=== PATIENT | female | born 1980 | race Caucasian/White ===

== ENCOUNTER 2017-01-17 11:05 | Emergency (ER) | payer MEDICAID ==
[~2017-01-17] VITALS: Ht 165.1 cm; Wt 86.2 kg
[~2017-01-17 11:05] MED LIST: ALBUTEROL-200 PUFFS/ IH; AMOXICILLI250 MG/52 PO; AMOXICILLIN500 M2 PO; BACTRIM DS 8001 TA1 PO; DIAZEPAM2 M1 PO; DIFLUCAN100 MG PO; HYCODAN 1.5 MG480 ML PO; HYDROCODONE-APA1 TA2 PO; LORTAB 5/500 501 TAB PO; MEDROL 4MG. DOSE4 MG PO; MOTRIN 400MG.400 MG PO; PERCOCET 5/3251 EACH PO; SYNTHROID 0.0.125 MG PO; TESSALON PERLE200 MG PO; VIBRAMYCIN 100100 MG PO
--- NOTE | 2017-01-17 11:57 | Urgent Treatment Center Report ---
History of Present Issue Visit Reason Pt arrived:Walked Presenting Problem:PT C/O CHEST CONGESTION, COUGH, AND NAUSEA Location if Accident: Onset of symptoms date/time:/ or onset unknown for:MEDICAL HX UNKNOWN Have you (or family members/close friends) recently traveled outside the [place]? N If Yes, where/when: Have you had exposure to infectious disease within the past month? TB? Other? Specify: Patient states that she has not felt well in several days states that she has had cough, congestion and nausea that has not improved over the last couple of days. States that nothing she has done makes it better or worse. States that she has been coughing alot and it is not letting her sleep ALLERGIES Coded Allergies: azithromycin (Mild, 01/17/17) cephalexin (Mild, 11/11/16) Home Medications Active Scripts Oxycodone 5MG/[id number] (Oxycodone-Acetaminophen 5-325) 1-2 TAB PO Q4HP PRN MODERATE TO SEVERE PAIN #30 TAB Prov: 01/14/15 Amoxicillin Trihydrate (Amoxicillin Oral Susp) 250 MG PO TID #220 ML Prov: 05/31/16 Reported Medications Levothyroxine Sodium (Synthroid 0.125MG) 0.125 MG PO DAILY Diazepam 2 MG PO TID History Medical History General CAD? No Angina: No CT: No Hypertension? No Hyperlipidemia? No CHF? No DVT? No PE? No COPD? No Asthma? No Anemia? No GERD? No Gastric ulcers? No GI Bleed? No Hernia? No Thyroid Problems? No Hypothyroidism? No CVA? No Seizures? No Diabetes? No Renal Insuffiency? No UTI? No Stones? No BPH? No GB Disease: No Nephritic Syndrome? No Asplenia? No Hepatitis? No Sickle Cell Disease? No Arthritis? No Migraines? No Cataracts? No Glaucoma? No MRSA? No HIV? No TB? No Anxiety? No Depression? No Cancer? No More? No Immunization HX DT/Tetanus 5-10 YRS Flu Refused Pneumonia Refuses Surgical Hx Previous Surgery?Y Tubal Ligation UTERINE ABLATION Family History Family HX Diabetes Yes CAD No Hypertension Yes Hyperlipidemia Yes Cancer Yes TB Yes Social History Smoking Hx Smoker: Current Every Day Smoker Tobacco: Yes Type Cigarettes Alcohol Alcohol: No Review of Systems All Other Systems Reviewed and Negative ENT ear pain, nose discharge, nose congestion, throat pain. Respiratory cough Psychiatric/Neurological headache Physical Exam Vital Signs Vital Signs Date Time Temp Pulse Resp B/P Pulse O2 O2 Flow FiO2 Ox Delivery Rate 01/17 1138 98.2 68 16 137/60 96 General Appearance normal appearance, WD/WN, no apparent distress Respiratory Status Yes: trachea midline, chest symmetrical, non tender chest. No: respiratory distress. 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 No Results/Orders Orders Procedure Date/time Status CHEST(2 VIEWS-NOT PORTABLE) 01/17 1137 Active Departure Departure Disposition DC Home or Self Care(routine) Clinical Impression Primary Impression: Viral upper respiratory illness Condition STABLE Referrals aSnty Castro (Family) Patient Instructions DI for Viral Upper Respiratory Infection -- Adult Additional Instructions Drink plenty of fluids Over the counter Motrin or Tylenol as needed for pain or fever Take medication as prescribed Follow up with family doctor Return if needed Discharge Counseling Counseled pt/family regarding diagnosis, test results, medications/RX, home care, follow up needs Prescriptions Current Visit Scripts D-METHORPHAN HB/P-EPD HCL/BPM (Bromfed Dm Cough Syrup) 10 ML PO Q4HP PRN cough #120 SYR Doxycycline Hyclate (Vibramycin) 100 MG PO BID #10 CAP at 1233
--- NOTE | 2017-01-17 11:57 | Urgent Treatment Center Report ---
History of Present Issue Visit Reason Pt arrived:Walked Presenting Problem:PT C/O CHEST CONGESTION, COUGH, AND NAUSEA Location if Accident: Onset of symptoms date/time:/ or onset unknown for:MEDICAL HX UNKNOWN Have you (or family members/close friends) recently traveled outside the [place]? N If Yes, where/when: Have you had exposure to infectious disease within the past month? TB? Other? Specify: Patient states that she has not felt well in several days states that she has had cough, congestion and nausea that has not improved over the last couple of days. States that nothing she has done makes it better or worse. States that she has been coughing alot and it is not letting her sleep ALLERGIES Coded Allergies: azithromycin (Mild, 01/17/17) cephalexin (Mild, 11/11/16) Home Medications Active Scripts Oxycodone 5MG/[id number] (Oxycodone-Acetaminophen 5-325) 1-2 TAB PO Q4HP PRN MODERATE TO SEVERE PAIN #30 TAB Prov: 01/14/15 Amoxicillin Trihydrate (Amoxicillin Oral Susp) 250 MG PO TID #220 ML Prov: 05/31/16 Reported Medications Levothyroxine Sodium (Synthroid 0.125MG) 0.125 MG PO DAILY Diazepam 2 MG PO TID History Medical History General CAD? No Angina: No [place]: No Hypertension? No Hyperlipidemia? No CHF? No DVT? No PE? No COPD? No Asthma? No Anemia? No GERD? No Gastric ulcers? No GI Bleed? No Hernia? No Thyroid Problems? No Hypothyroidism? No CVA? No Seizures? No Diabetes? No Renal Insuffiency? No UTI? No Stones? No BPH? No GB Disease: No Nephritic Syndrome? No Asplenia? No Hepatitis? No Sickle Cell Disease? No Arthritis? No Migraines? No Cataracts? No Glaucoma? No MRSA? No HIV? No TB? No Anxiety? No Depression? No Cancer? No More? No Immunization HX DT/Tetanus 5-10 YRS Flu Refused Pneumonia Refuses Surgical Hx Previous Surgery?Y Tubal Ligation UTERINE ABLATION Family History Family HX Diabetes Yes CAD No Hypertension Yes Hyperlipidemia Yes Cancer Yes TB Yes Social History Smoking Hx Smoker: Current Every Day Smoker Tobacco: Yes Type Cigarettes Alcohol Alcohol: No Review of Systems All Other Systems Reviewed and Negative ENT ear pain, nose discharge, nose congestion, throat pain. Respiratory cough Psychiatric/Neurological headache Physical Exam Vital Signs Vital Signs Date Time Temp Pulse Resp B/P Pulse O2 O2 Flow FiO2 Ox Delivery Rate 01/17 1138 98.2 68 16 137/60 96 General Appearance normal appearance, WD/WN, no apparent distress Respiratory Status Yes: trachea midline, chest symmetrical, non tender chest. No: respiratory distress. 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 No Results/Orders Orders Procedure Date/time Status CHEST(2 VIEWS-NOT PORTABLE) 01/17 1137 Active Departure Departure Disposition DC Home or Self Care(routine) Clinical Impression Primary Impression: Viral upper respiratory illness Condition STABLE Referrals Santy Castro (Family) Patient Instructions DI for Viral Upper Respiratory Infection -- Adult Additional Instructions Drink plenty of fluids Over the counter Motrin or Tylenol as needed for pain or fever Take medication as prescribed Follow up with family doctor Return if needed Discharge Counseling Counseled pt/family regarding diagnosis, test results, medications/RX, home care, follow up needs Prescriptions Current Visit Scripts D-METHORPHAN HB/P-EPD HCL/BPM (Bromfed Dm Cough Syrup) 10 ML PO Q4HP PRN cough #120 SYR Doxycycline Hyclate (Vibramycin) 100 MG PO BID #10 CAP at 1233
[2017-01-17] MEDS ORDERED: BROMFED DM COU118 ML PO (12:21)
[2017-01-17] MEDS ORDERED: DOXYCYCLINE HY100 M4 PO (12:33)
[2017-01-17 12:44] VITALS: BP 137/60
--- NOTE | 2017-01-17 16:51 | RADIOLOGY REPORT PS360 ---
CHEST(2 VIEWS-NOT PORTABLE) ORDERING PHYSICIAN : SARAH NICOLE APRN PATIENT AGE: 36 years GENDER: Female INDICATION: CHEST CONGESTION . No focal pneumonia evident. TECHNIQUE: PA and lateral chest COMPARISON: 11/02/2013 CXR FINDINGS No significant changes previous chest film again the mild accentuation of markings toward the right base is been seen on previous studies and stable. Left lung remains clear unremarkable. Heart, upper normal in size. Unchanged since 2008. Brook and mediastinal structures unchanged. Chest wall T-spine unchanged. IMPRESSION: Stable chest nothing definitely acute.
== END 2017-01-17 12:45 | disposition home or self-care (01) ==
LOC: UTC 11:05
DX: J06.9 Acute upper respiratory infection, unspecified (principal); Z72.0 Tobacco use

== ENCOUNTER → 2017-02-22 | Outpatient (CLI) | payer MEDICAID ==
[~2017-02-22] MED LIST changes: +BROMFED DM COU118 ML PO; +DOXYCYCLINE HY100 M4 PO
[2017-02-22 13:11] LABS: BUN 12 mg/dL (7-18); GFR (ESTIMATED) 70 ML/MIN (59-)
== END ==
LOC: LAB 11:29
PROVIDERS: Internal Medicine Endocrinology, Diabetes & Metabolism
DX: E21.3 Hyperparathyroidism, unspecified (principal)

== ENCOUNTER 2017-08-02 13:38 | Emergency (ER) | payer MEDICAID ==
[~2017-08-02] VITALS: Ht 162.6 cm; Wt 90.7 kg
--- NOTE | 2017-08-02 14:18 | Urgent Treatment Center Report ---
History of Present Issue Date/Time Seen by Provider 08/02/17 1537 Visit Reason Pt arrived:Walked Presenting Problem:PT STATES SHE WAS DIAGNOSED WITH BRONCHITIS LAST TUESDAY. PT STATES SHE FINISHED HER ANTIBIOTICS BUT HER SYMPTOMS HAVE GOTTEN WORSE Location if Accident: Onset of symptoms date/time:/ or onset unknown for:MEDICAL HX UNKNOWN Have you (or family members/close friends) recently traveled outside the [place]? N If Yes, where/when: Have you had exposure to infectious disease within the past month? TB? Other? Specify: Patient state that she was diagnosed about a week ago at the [facility] with bronchitits last week. States that she has finished medication now and her cough seems to have got worse. State that she is having eppisodes of coughing States that she thought she better come back in today and get checked ALLERGIES Coded Allergies: azithromycin (Mild, 01/17/17) cephalexin (Mild, 11/11/16) Home Medications Active Scripts Oxycodone 5MG/[id number] (Oxycodone-Acetaminophen 5-325) 1-2 TAB PO Q4HP PRN MODERATE TO SEVERE PAIN #30 TAB Prov: 01/14/15 D-METHORPHAN HB/P-EPD HCL/BPM (Bromfed Dm Cough Syrup) 10 ML PO Q4HP PRN cough #120 SYR Prov: 01/17/17 Doxycycline Hyclate (Vibramycin) 100 MG PO BID #10 CAP Prov: 01/17/17 Amoxicillin Trihydrate (Amoxicillin Oral Susp) 250 MG PO TID #220 ML Prov: 05/31/16 Reported Medications Levothyroxine Sodium (Synthroid 0.125MG) 0.125 MG PO DAILY Diazepam 2 MG PO TID History Medical History General CAD? No Angina: No [place]: No Hypertension? No Hyperlipidemia? No CHF? No DVT? No PE? No COPD? No Asthma? No Anemia? No GERD? No Gastric ulcers? No GI Bleed? No Hernia? No Thyroid Problems? No Hypothyroidism? No CVA? No Seizures? No Diabetes? No Renal Insuffiency? No UTI? No Stones? No BPH? No GB Disease: No Nephritic Syndrome? No Asplenia? No Hepatitis? No Sickle Cell Disease? No Arthritis? No Migraines? No Cataracts? No Glaucoma? No MRSA? No HIV? No TB? No Anxiety? No Depression? No Cancer? No More? No Immunization HX Ped.Immunizations UTD No DT/Tetanus 5-10 YRS Flu Refused Pneumonia Refuses Surgical Hx Previous Surgery?Y Tubal Ligation UTERINE ABLATION Family History Family HX Diabetes Yes CAD No Hypertension Yes Hyperlipidemia Yes Cancer Yes TB Yes Social History Smoking Hx Smoker: Never Smoker Tobacco: No Alcohol Alcohol: No Review of Systems All Other Systems Reviewed and Negative Respiratory cough, denies shortness of breath, denies wheezing Physical Exam Vital Signs Vital Signs Date Time Temp Pulse Resp B/P Pulse O2 O2 Flow FiO2 Ox Delivery Rate 08/02 1344 98.4 90 20 123/78 98 General Appearance normal appearance, WD/WN, no apparent distress Respiratory Status Yes: trachea midline, chest symmetrical, non tender chest. No: respiratory distress. Lung Sounds bilateral: normal breath sounds. Cardiovascular normal exam, regular rate/rhythm, no peripheral edema Neurologic alert, soda jerker II-XII nml as tested, normal exam, no motor/sensory deficits, oriented x 3 Medical Decision Making LABS/Meds/Orders Pt receiving controlled substance in ED? No Results/Orders Orders Procedure Date/time Status CHEST(2 VIEWS-NOT PORTABLE) 08/02 1408 Active XRAY/CT/US XRAY/CT/US XRAY chest XR interpretation by reviewed by me Xray Results no infiltrates Comment discussed with Dr Sanford Departure Departure Time of Disposition 1428 Disposition DC Home or Self Care(routine) Clinical Impression Primary Impression: Upper respiratory infection Qualifiers: URI type: unspecified URI Qualified Code: J06.9 - Acute upper respiratory infection, unspecified Condition STABLE Patient Instructions Cough Additional Instructions * Monitor Temp. Tylenol and/or Ibuprofen as needed. ER if fever is no less than 101 despite alternating Tylenol and Ibuprofen * Encourage fluids, water, Gatorade, powerade, pedialyte if /toddler/or child * Warm salt water gargles for throat irritation *Warm fluids *Sore throat lozenges *Sleep elevated *humidifier or vaporizer Follow up IMMEDIATELY for new or worsening of symptoms OR no noticeable improvement over the next 48-72 hours. 911 immediately for any life threatening symptoms such as chest pain or difficulty breathing Discharge Counseling Counseled pt/family regarding diagnosis, test results, medications/RX, home care, follow up needs Prescriptions Current Visit Scripts Benzonatate (Tessalon Perle) 100 MG PO TID #15 SGL ALBUTEROL (Proventil Hfa Inhaler) 2 PUFF IH Q6H PRN #1 CAN at 3183
--- NOTE | 2017-08-02 14:18 | Urgent Treatment Center Report ---
History of Present Issue Date/Time Seen by Provider 08/02/17 7117 Visit Reason Pt arrived:Walked Presenting Problem:PT STATES SHE WAS DIAGNOSED WITH BRONCHITIS LAST TUESDAY. PT STATES SHE FINISHED HER ANTIBIOTICS BUT HER SYMPTOMS HAVE GOTTEN WORSE Location if Accident: Onset of symptoms date/time:/ or onset unknown for:MEDICAL HX UNKNOWN Have you (or family members/close friends) recently traveled outside the [place]? N If Yes, where/when: Have you had exposure to infectious disease within the past month? TB? Other? Specify: Patient state that she was diagnosed about a week ago at the [facility] with bronchitits last week. States that she has finished medication now and her cough seems to have got worse. State that she is having eppisodes of coughing States that she thought she better come back in today and get checked ALLERGIES Coded Allergies: azithromycin (Mild, 01/17/17) cephalexin (Mild, 11/11/16) Home Medications Active Scripts Oxycodone 5MG/[id number] (Oxycodone-Acetaminophen 5-325) 1-2 TAB PO Q4HP PRN MODERATE TO SEVERE PAIN #30 TAB Prov: 01/14/15 D-METHORPHAN HB/P-EPD HCL/BPM (Bromfed Dm Cough Syrup) 10 ML PO Q4HP PRN cough #120 SYR Prov: 01/17/17 Doxycycline Hyclate (Vibramycin) 100 MG PO BID #10 CAP Prov: 01/17/17 Amoxicillin Trihydrate (Amoxicillin Oral Susp) 250 MG PO TID #220 ML Prov: 05/31/16 Reported Medications Levothyroxine Sodium (Synthroid 0.125MG) 0.125 MG PO DAILY Diazepam 2 MG PO TID History Medical History General CAD? No Angina: No [place]: No Hypertension? No Hyperlipidemia? No CHF? No DVT? No PE? No COPD? No Asthma? No Anemia? No GERD? No Gastric ulcers? No GI Bleed? No Hernia? No Thyroid Problems? No Hypothyroidism? No CVA? No Seizures? No Diabetes? No Renal Insuffiency? No UTI? No Stones? No BPH? No GB Disease: No Nephritic Syndrome? No Asplenia? No Hepatitis? No Sickle Cell Disease? No Arthritis? No Migraines? No Cataracts? No Glaucoma? No MRSA? No HIV? No TB? No Anxiety? No Depression? No Cancer? No More? No Immunization HX Ped.Immunizations UTD No DT/Tetanus 5-10 YRS Flu Refused Pneumonia Refuses Surgical Hx Previous Surgery?Y Tubal Ligation UTERINE ABLATION Family History Family HX Diabetes Yes CAD No Hypertension Yes Hyperlipidemia Yes Cancer Yes TB Yes Social History Smoking Hx Smoker: Never Smoker Tobacco: No Alcohol Alcohol: No Review of Systems All Other Systems Reviewed and Negative Respiratory cough, denies shortness of breath, denies wheezing Physical Exam Vital Signs Vital Signs Date Time Temp Pulse Resp B/P Pulse O2 O2 Flow FiO2 Ox Delivery Rate 08/02 1344 98.4 90 20 123/78 98 General Appearance normal appearance, WD/WN, no apparent distress Respiratory Status Yes: trachea midline, chest symmetrical, non tender chest. No: respiratory distress. Lung Sounds bilateral: normal breath sounds. 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 No Results/Orders Orders Procedure Date/time Status CHEST(2 VIEWS-NOT PORTABLE) 08/02 1408 Active XRAY/CT/US XRAY/CT/US XRAY chest XR interpretation by reviewed by me Xray Results no infiltrates Comment discussed with Dr Sanford Departure Departure Time of Disposition 1428 Disposition DC Home or Self Care(routine) Clinical Impression Primary Impression: Upper respiratory infection Qualifiers: URI type: unspecified URI Qualified Code: J06.9 - Acute upper respiratory infection, unspecified Condition STABLE Patient Instructions Cough Additional Instructions * Monitor Temp. Tylenol and/or Ibuprofen as needed. ER if fever is no less than 101 despite alternating Tylenol and Ibuprofen * Encourage fluids, water, Gatorade, powerade, pedialyte if /toddler/or child * Warm salt water gargles for throat irritation *Warm fluids *Sore throat lozenges *Sleep elevated *humidifier or vaporizer Follow up IMMEDIATELY for new or worsening of symptoms OR no noticeable improvement over the next 48-72 hours. 911 immediately for any life threatening symptoms such as chest pain or difficulty breathing Discharge Counseling Counseled pt/family regarding diagnosis, test results, medications/RX, home care, follow up needs Prescriptions Current Visit Scripts Benzonatate (Tessalon Perle) 100 MG PO TID #15 SGL ALBUTEROL (Proventil Hfa Inhaler) 2 PUFF IH Q6H PRN #1 CAN at 6035
[2017-08-02] MEDS ORDERED: TESSALON PERLE100 M1 PO (14:32)
[2017-08-02] MEDS ORDERED: PROVENTIL0.09 MG/A1 IH (14:32)
[2017-08-02 14:36] VITALS: BP 123/78
--- NOTE | 2017-08-02 17:51 | RADIOLOGY REPORT PS360 ---
CHEST(2 VIEWS-NOT PORTABLE) HISTORY: congestion ORDERING PHYSICIAN: SARAH NICOLE APRN PATIENT AGE: 37 years COMPARISON: 01/17/2017 FINDINGS: The cardiomediastinal silhouette and pulmonary vascularity are within normal limits. The lungs are clear without infiltrates, suspicious nodules, or pleural effusions. No acute bony abnormalities. IMPRESSION: Negative chest, no acute finding
== END 2017-08-02 14:38 | disposition home or self-care (01) ==
LOC: UTC 13:38
DX: J06.9 Acute upper respiratory infection, unspecified (principal); Z88.1 Allergy status to other antibiotic agents

== ENCOUNTER 2017-08-28 20:17 | Emergency (ER) | payer MEDICAID ==
[~2017-08-28] VITALS: Ht 162.6 cm; Wt 90.7 kg
[~2017-08-28 20:17] MED LIST changes: +PROVENTIL0.09 MG/A1 IH; +TESSALON PERLE100 M1 PO
--- OUTSIDE RECORDS SUMMARY | 2017-08-28 20:29 | External Medical Summary Rpt | CCD ---
Author Author , SHAYY LUCAS Address Unknown Phone Care Team Providers Care Fixture Maker Name Role Phone ARNTRAVIS NAHID, ARNOLD Unavailable Unavailable NAHID ARNOLD NAHID, ARNOLD Unavailable Unavailable NAHID SHIRIN, GLORIA W, Unavailable Unavailable SHIRIN, GLORIA W ENEIDA VARGHESE Unavailable Unavailable ENEIDA ARDON Unavailable Unavailable BRO BHABHRA, BHABHRA Unavailable Unavailable WHITTAKER ALL, WHITTAKER ALL Unavailable Unavailable [facility] Unavailable Unavailable INC, [facility] AMELIA MATTEOAMELIA MATTEO Unavailable Unavailable AMELIA PARKS Unavailable Unavailable AMELIA MONIQUE MD, Unavailable Unavailable AMELIA DAVIES MD Unavailable Unavailable [facility], Brielle DAVIES MD [facility], Unavailable Unavailable [facility] CHIPPS JAI & Unavailable Unavailable DUBILIER, CHIPPS JAI & DUBILIER ELIAN KATELYN, PLUMMER Unavailable Unavailable KATELYN PLUMMER KATELYN, PLUMMER Unavailable Unavailable CHANDLER MCARTHUR, Unavailable Unavailable CHANDLER PLUMMER [facility], Unavailable [facility] Unavailable Unavailable [facility], [facility] Unavailable Unavailable [facility], [facility] Unavailable Unavailable LAB, [facility] Unavailable Unavailable [facility] [place] JAMARCUS PAT, JAMARCUS PAT Unavailable Unavailable YOEL, YOEL Unavailable Unavailable YOEL BLAIR, Unavailable Unavailable YOEL BLAIR YOEL BLAIR, Unavailable Unavailable YOEL BLAIR YOEL, CAROLA, Unavailable Unavailable YOEL, CAROLA [facility] # [id number], Unavailable Unavailable [facility] # [id number] LASHAY VISION, Unavailable Unavailable [facility]ISION SHARON HERRERA Unavailable Unavailable YESICA OCTAVIO, Unavailable Unavailable YESICA OCTAVIO YESICA OCTAVIO, Unavailable Unavailable YESICA OCTAVIO YAMILET, WOODARD Unavailable Unavailable RICO KENYETTA, RICO Unavailable Unavailable KENYETTA BREANA, VIKTORIA S, Unavailable Unavailable VIKTORIA TOUSSAINT HARPEL OCTAVIO, HARPEL Unavailable Unavailable OCTAVIO [facility] Unavailable Unavailable INC, [facility] Unavailable Unavailable HOSPITAL P, [facility]ITAL P MCPHERSON HARRIS, MCPHERSON HARRIS Unavailable Unavailable [facility] Unavailable Unavailable [facility], [facility], Unavailable Unavailable [facility] ROXANNE OLIVEIRA Unavailable Unavailable [facility] Unavailable Unavailable [facility] [place] Unavailable Unavailable [facility], [facility] Unavailable Unavailable [facility], [facility] BRENDAN CARDONA Unavailable Unavailable NANDA VEE JR, JR Unavailable Unavailable CHANG NAHID, CHANG Unavailable Unavailable NAHID CHANG NAHID, CHANG Unavailable Unavailable FRANKY BARRETT Unavailable Unavailable FRANKY CREWS, Unavailable Unavailable NATALIO THOMPSON Unavailable Unavailable [facility]available [facility] FERNANDEZ LISA, JIM LISA Unavailable Unavailable DANIELLA FERNANDEZ, Unavailable Unavailable DANIELLA FERNANDEZ [facility], [facility] Unavailable Unavailable LABS, [facility], Unavailable Unavailable [facility], [facility] Unavailable Unavailable LAB, [facility] KEITH TINSLEY, Unavailable Unavailable KEITH TINSLEY [facility] Unavailable Unavailable [id number] # [id number], [facility] [id number] # [id number] KEKE LESTER, Unavailable Unavailable KEKE LESTER SHUMDMITRI WINDY, Unavailable Unavailable SHUMDMITRI WINDY SOKAN, ITZEL O, Unavailable Unavailable SOKAN, ITZEL O SOTINGEANU LUZ MARIA, Unavailable Unavailable SOTINGEANU LUZ MARIA CRISTI JR, CRISTI Unavailable Unavailable ALONZO BURCH Unavailable Unavailable ALONZO MELENDEZ Unavailable Unavailable [facility], Unavailable Unavailable [facility] Unavailable Unavailable [place] [facility], [facility] WAHAB RIF, WAHAB RIF Unavailable Unavailable [facility] Unavailable Unavailable #, [facility] # [facility] Unavailable Unavailable #591, [facility] # Unavailable Unavailable [id number], [facility] # [id number] WEHRMAN III LISA, Unavailable Unavailable WEHRMAN III LISA WEMAN III LISA, Unavailable Unavailable WEHRMAN III LISA MATTA CHR, SIGRID Unavailable Unavailable [facility] Unavailable Unavailable [facility] [place], [facility] [place] Purpose Continuity of Care Document - 05-16-2009 through 2016 Problems Code Diagnosis DOS Provider Status J208 ACUTE 07-23-2017 [facility] BRON[facility]ITIS MEDICINE DUE TO [facility] OTHER SPEC [facility] ORGANISMS D351 BENIGN 04-28-2017 [facility] NEOPLASM OF OF [place] PARATHYROID PHY GLAND E210 PRIMARY 04-28-2017 [facility] HYPERPARATH OF YROIDISM [place] PHY E8352 HYPERCALCEM 04-28-2017 [facility] [place] [facility] Z021 ENCOUNTER 04-18-2017 [facility] PRE-EMPLOYM INC ENT EXAMINATION E039 HYPOTHYROID 04-11-2017 [facility] ISM OF UNSPECIFIED [place] PHY E213 HYPERPARATH 04-11-2017 [facility] YROIDISM OF UNSPECIFIED [place] PHY E8350 UNSPECIFIED 04-11-2017 [facility] DISORDER OF OF CALCIUM [place] METABOLISM PHY U36543 ENCOUNTER 01-24-2017 [place] [facility] FOR OSTEOPOROSI S J069 ACUTE UPPER 01-17-2017 [facility] RESPIRATORY INC INFECTION UNSPECIFIED R0989 OTH SPEC SX 01-17-2017 [place] [facility]ICAL INVLV THE IMAGING ASS CIRC & RESP SYS Z720 TOBACCO USE 01-17-2017 [facility] INC C65844 ACQUIRED 12-01-2016 [facility] ABSENCE OF OF BOTH CERVIX [place] AND UTERUS PHY A94725 ACQUIRED 12-01-2016 [facility] ABSENCE OF OF OVARIES [place] UNILATERAL PHY Z9079 ACQUIRED 12-01-2016 [facility] ABSENCE OF OF OTHER [place] GENITAL PHY ORGANS D234 OTHER 11-11-2016 [facility] NEOPLASM OF SKIN OF SCALP AND NECK D492 NEOPLASM OF 11-10-2016 [facility] UNS ANESTH OF BEHAVIOR THE BLUE BONE SOFT TISSUE & SKIN J36247 ENCOUNTER 11-05-2016 [facility] P AL CARIOVASCUL AR EXAM X18236 ENCOUNTER 11-05-2016 [facility] AL LABORATORY EXAM L723 SEBACEOUS 09-09-2016 ARNOLD NAHID CYST E349 ENDOCRINE 06-04-2016 [place] DISORDER OF UNSPECIFIED [place] [facility] M797 FIBROMYALGI 06-04-2016 [facility] A OF [place] PHY R0602 SHORTNESS 06-04-2016 [facility] OF BREATH OF [place] PHY R5382 CHRONIC 06-04-2016 [facility] FATIGUE OF UNSPECIFIED [place] PHY Z8489 FAMILY 06-04-2016 [facility] HISTORY OF OF OTHER [place] SPECIFIED Y CONDITIONS V78325 CUTANEOUS 05-31-2016 [facility] ABSCESS OF [facility] LEFT LOWER INC LIMB L0390 CELLULITIS 05-31-2016 [facility]PECIFIED [facility], PLL[facility] M069 RHEUMATOID 03-31-2016 [place] ARTHRITIS [facility] UNSPECIFIED E24939 PRIMARY 03-31-2016 [facility] OSTEOARTHRI OF TIS LEFT [place] HAND PHY U05398 PRIMARY 03-31-2016 [facility] OSTEOARTHRI OF TIS LEFT [place] ANKLE AND Y FOOT M2550 PAIN IN 03-31-2016 [facility] UNSPECIFIED OF JOINT [place] PHY M7732 CALCANEAL 03-31-2016 [facility] SPUR LEFT HOSPITAL FOOT M791 MYALGIA 03-31-2016 [facility] F45584 PAIN IN 03-31-2016 [facility] RIGHT HAND OF [place] PHY A12432 PAIN IN 03-31-2016 [facility] RIGHT FOOT OF [place] PHY N6011 DIFFUSE 03-31-2016 [facility] CYSTIC OF MASTOPATHY [place] OF RIGHT PHY BREAST N644 MASTODYNIA 03-31-2016 [facility] PHY O039 COMPLETE OR 03-31-2016 [facility] UNS SPONT OF [place] W/O PHY COMPLICATIO N R768 OTH SPEC 03-31-2016 [facility] ABNORMAL OF IMMUNOLOGIC [place] AL FIND IN PHY SERUM 7212 PAIN IN 07-15-2015 [place] [facility] TISSUES OF IMAGING ASS LIMB 7823 EDEMA 07-15-2015 [facility] V909 RETAINED 07-15-2015 [place] [facility] BODY [facility] UNSPECIFIED MATERIAL 6262 EXCESSIVE 05-22-2015 [facility] OR [facility] GROUP MENSTRUATIO N 2181 INTRAMURAL 01-13-2015 [facility] LEIOMYOMA PHYSICIANS OF UTERUS GROUP 2189 LEIOMYOMA 01-13-2015 [facility] OF UTERUS, [facility] UNSPECIFIED INC 220 BENIGN 01-13-2015 [facility] NEOPLASM OF LLC OVARY 2331 CARCINOMA 01-13-2015 [facility], IN SITU OF LLC CERVIX UTERI 6212 HYPERTROPHY 01-13-2015 [facility] OF UTERUS PHYSICIANS GROUP 6259 UNSPEC 01-13-2015 [facility] SYMPTOM PHYSICIANS ASSOC GROUP W/FEMALE GENITAL ORGANS 6268 OTH D/O 01-13-2015 [facility] MENSTRUATIO ANESTH OF N&OTH ABN THE BLUE BLEED FE GNT TRACT 2449 UNSPECIFIED 12-18-2014 [facility] HYPOTHYROID INC ISM 0794 HUMAN 12-17-2014 [facility], PAPILLOMA LLC VIRUS IN CCE & UNS SITE V1589 OT SPEC 12-17-2014 [facility], PERS HX LLC PRESENTING HAZARDS HEALTH OT 6201 CORPUS 07-24-2014 PLUMMER KATELYN LUTEUM CYST OR HEMATOMA 91443 PAP SMER 05-08-2014 [facility] KATELYN CERV W/LW GRADE SQUAMOUS INTRAEPITH LES V7231 ROUTINE 04-09-2014 CHANGMINISTERIO WHITFIELD GYNECOLOGIC AL EXAMINATION 4650 ACUTE 03-05-2014 [facility] LARYNGOPHAR PHYSICIANS YNGITIS GROUP 466.0 466.0 ACUTE 11-02-2013 [place] BRONCHITIS [facility] 4660 ACUTE 11-02-2013 [facility] BRONCHITIS [facility] 490 BRONCHITIS 11-02-2013 MONIQUE BRO NOT SPECIFIED ACUTE OR CHRONIC 7862 COUGH 11-02-2013 YOEL BLAIR 2724 OTHER AND 07-27-2013 [facility] UNSPECIFIED [facility]YSICIANS [place] HYPERLIPIDE JUAN MANUEL 4619 ACUTE 07-27-2013 ARNOLD NAHID SINUSITIS, UNSPECIFIED 29804 PAIN IN 07-27-2013 LAB [facility] JOINT, SITE [facility]INGS UNSPECIFIED 7291 UNSPECIFIED 07-27-2013 ARNTRAVIS WHITFIELD MYALGIA AND MYOSITIS 44977 OTHER 07-27-2013 LAB EN[facility]QUE MALAISE AND WINSOME FATIGUE HOLDINGS 94435 UNSPECIFIED 06-19-2013 [facility] ABNORMAL [facility] MAMMOGRAM INC V7612 OTHER 12-19-2012 [facility] SCREENING [facility] MAMMOGRAM INC V0481 NEED 09-14-2012 AMELIA FELIPE PROPHYLACTI C VACCINATION &INOCULATIO N FLU 51104 SWELLING OF 07-09-2012 WEHRMAN III LIMB LISA 9174 FOOT&TOE 07-09-2012 [facility] INSECT BITE [facility] INC NONVENOMOUS W/O MENTION INF 6869 UNSPEC 05-02-2012 SHIRIN WHITFIELD LOCAL INFECTION SKIN&SUBCUT ANEOUS TISSUE 77374 PAIN IN 03-03-2012 [place] [facility]INT, MEDICAL LOWER LEG IMAGING ASS 04625 PAIN IN 03-03-2012 [place] JOINT, MEDICAL ANKLE AND IMAGING ASS FOOT 8260 CLOSED 03-03-2012 [place] FRACTURE OF MEDICAL ONE OR IMAGING ASS MORE PHALANGES OF FOOT 41344 VARIANTS 02-29-2012 SHIRIN WHITFIELD MIGRAINE NEC INTRACT MIGRAINE W/O SM 7242 LUMBAGO 02-02-2012 YESICA OCTAVIO 37572 UNSPEC 11-03-2011 SHIRIN WHITFIELD STAPHYLOCOC CUS INFECTION CCE & UNS SITE 6829 CELLULITIS 10-16-2011 [facility] AND ABSCESS [facility] OF INC UNSPECIFIED SITE 2165 BENIGN 07-27-2011 [facility] NEOPLASM OF JAI & SKIN OF DUBILIER TRUNK EXCEPT SCROTUM 2166 ANTWON 07-27-2011 C JAYLENE NEOPLASM [place] SKIN UPPER MD PSC LIMB INCLUDING SHOULDER 3670 HYPERMETROP 07-27-2011 L[facility]AY IA VISION 88119 OTHER 07-27-2011 [facility] SEBORRHEIC JAI & KERATOSIS DUBILIER 05720 OBESITY, 05-03-2011 SHIRIN WHITFIELD UNSPECIFIED 6218 OTHER 03-29-2011 [facility] SPECIFIED JAI & DISORDERS DUBILIER OF UTERUS NEC 6253 DYSMENORRHE 03-10-2011 [facility] [place] 59275 OSTEOARTHRO 08-29-2010 SHIRIN WHITFIELD S INVLV MX SITES BUT NOT SPEC GEN V242 ROUTINE 07-23-2010 [facility] [place] V252 STERILIZATI 07-06-2010 [facility] [place] V502 ROUTINE OR 05-28-2010 [facility] RITUAL PHYSICIAN CIRCUMCISIO GROUP [facility] N 56332 ERLY ONSET 05-27-2010 [facility] W/WO CLINIC OF MENTION [place] [facility] COND 650 NORMAL 05-27-2010 [facility] DELIV[facility] CLINIC OF [place] [facility] V270 OUTCOME OF 05-27-2010 [facility] DELIVERY HEALTH SINGLE CLINIC OF LIVEBORN [place] [facility] 48104 THREATENED 05-26-2010 [facility] PREMATURE PHYSICIAN LABOR GROUP [facility] ANTEPARTUM V221 SUPERVISION 05-26-2010 [facility] OF OTHER HEALTH NORMAL CLINIC OF [place] [facility] 23976 OTHER 05-10-2010 [facility] THREATENED PHYSICIAN LABOR, GROUP PCC ANTEPARTUM 70109 EXCESS 05-06-2010 [facility] OF AFFECT MGMT [place] MOTH [facility] ANTPR 75728 DECR 05-01-2010 [facility] MOVMNTS HEALTH MGMT MOTH CLINIC OF ANTPR [place] COND/COMP [facility] 5990 URINARY 04-28-2010 [facility] TRACT PHYSICIANS INFECTION LAB SITE NOT SPECIFIED V283 ENCOUNTER 02-05-2010 [facility]EN'[facility] ROUTINE HEALTH SCREEN CLINIC OF MALFORMATIO [place] N [facility] ULTRASONIC V220 SUPERVISION 01-20-2010 [facility] OF NORMAL [facility] HOS[facility] FIRST INC 22002 OTHER 01-13-2010 [facility] SPECIFED [facility] COMPLICATIO INC N ANTEPARTUM 83923 OT CURRENT 01-13-2010 [facility] MAT STEVE EMERGENCY CLASSIFIABL SERVICES E ELSW ASSOC[facility]ATES [facility] 7245 UNSPECIFIED 01-13-2010 [facility] BACKACHE EMERGENCY SERVICES ASSOCIATES 7840 HEADACHE 01-13-2010 [facility] PHYSICIAN GROUP PCC V222 01-13-2010 [facility] INCIDENTAL INC V745 SCREENING 11-24-2009 MOLECULAR EXAMINATION PATHOLOGY FOR LAB NETWORK VENEREAL INC DISEASE 93813 THREATENED 10-28-2009 [facility] , [facility] [address] 10-28-2009 [facility]OMEN'S COMP RECUR HEALTH PREG LOSS CLINIC OF ANTPRBRENDEN [place] COND/COMP [facility] 40061 ABDOMINAL 10-21-2009 [facility] PAIN, EMERGENCY UNSPECIFIED SERVICES SITE ASSOCIATES 10268 ABDOMINAL 10-21-2009 [facility] PAIN, [facility] GENERALIZED INC 61511 STOMATITIS 08-04-2009 [facility] AND EMERGENCY MUCOSITIS SERVICES UNSPECIFIED ASSOCIATES 5060 BRONCHITIS& 07-23-2009 [place] PNEUMONITIS MEDICAL DUE TO IMAGING FUMES&VAPOR ASSOCIATES S 9879 TOXIC 07-23-2009 [facility] EFFECT OF EMERGENCY UNSPECIFIED SERVICES GAS FUME ASSOCIATES OR VAPOR E8490 PLACE OF 07-23-2009 [facility] OCC[facility], MEDICAL HOME IMAGING ASSOCIATES E8912 OTH 07-23-2009 [place] SMOKE&FUMES MEDICAL CONFLAGRAT IMAGING OTH&UNS ASSOCIATES BLDG/STRCT Allergies, Adverse Reactions, Alerts Type Drug Allergy Propensity to adverse reactions to drug Adverse Reaction to Substance Substance Reaction Severity Doxycycline S-BLISTERING WHELPS Severe Azithromycin NA-DIARRHEA Unknown Cephalexin NA-HALLUCINATIONS Intermediate Medications Na ND Rx Da Fi Fi Am Da Di Ph RX Ph St me C No te ll ll ou ys ag ar # ys at rm s nt no ma ic us Or Da si cy ia de te s n re d VT 00 09 10 10 5 00 KR Ac ED 05 -1 -2 .0 00 OG ti NI 40 6- 0- 00 06 ER ve SO 01 20 20 35 NE 82 17 17 52 PH 9 97 AR 20 MA CY MG #1 TA 44 BL 10 ET DO 49 09 10 14 7 00 KR Ac XY 88 -1 -2 .0 00 OG ti CY 40 6- 0- 00 06 ER ve CL 72 20 20 35 IN 70 17 17 52 PH E 3 96 AR MO MA NO CY 10 #1 0 44 MG 10 CA P VE 00 09 10 18 25 00 KR Ac NT 17 -1 -2 .0 00 OG ti OL 30 6- 0- 00 06 ER ve IN 68 20 20 35 22 17 17 52 PH HF 0 95 AR A MA 90 CY MC #1 G 44 IN 10 DEE LE R BE 68 09 10 30 5 00 KR Ac NZ 38 -1 -2 .0 00 OG ti ON 20 6- 0- 00 06 ER ve AT 24 20 20 35 AT 70 17 17 52 PH E 1 98 AR 10 MA 0 CY MG #1 CA 44 PS 10 UL E OM 55 09 10 30 30 00 KE Ac EP 11 -1 -2 .0 00 NT ti RA 10 9- 0- 00 00 UC ve ZO 15 20 20 91 [place] LE 81 17 [address] S PH 20 AR MA MG CY CA LL PS C, UL E DB A CV S PH AR MA CY #0 54 37 DU 66 09 10 30 30 00 KE Ac LO 99 -1 -2 .0 00 NT ti XE 30 9- 0- 00 00 UC ve TI 66 20 20 91 [place] NE 26 17 17 07 0 12 CV HC S L PH DR AR MA 20 CY MG LL C, CA P DB A CV S PH AR MA CY #0 54 37 LE 00 08 09 30 30 00 KE Ac VO 37 -2 -2 .0 00 NT ti TH 81 9- 9- 00 00 UC ve YR 80 20 20 91 [place] OX 71 17 17 07 IN 0 08 CV E S 88 PH AR MC MA G CY TA BL LL ET C, DB A CV S PH AR MA CY #0 54 37 OM 55 08 09 30 30 00 KE Ac EP 11 -2 -2 .0 00 NT ti RA 10 3- 2- 00 00 UC ve ZO 15 20 20 91 [place] LE 81 17 [address] S PH 20 AR MA MG CY CA LL PS C, UL E DB A CV S PH AR MA CY #0 54 37 DU 66 08 09 30 30 00 KE Ac LO 99 -2 -2 .0 00 NT ti XE 30 3- 2- 00 00 UC ve TI 66 20 20 91 [place] NE 26 17 17 07 0 12 CV HC S L PH DR AR MA 20 CY MG LL C, CA P DB A CV S PH AR MA CY #0 54 37 OY 00 08 09 [address] 90 -2 -2 .0 00 NT ti ER 41 3- 2- 00 00 UC ve 88 20 20 91 [place] SH 35 17 17 07 EL 2 09 CV L S CA PH LC AR IU MA M CY 50 0 LL MG C, TB DB A CV S PH AR MA CY #0 54 37 DI 00 08 09 90 30 00 KE Ac AZ 37 -2 -2 .0 00 NT ti EP 80 3- 2- 00 00 UC ve AM 47 20 20 91 [place] 70 17 17 07 10 1 39 CV S MG PH AR TA MA BL CY ET LL C, DB A CV S PH AR MA CY #0 54 37 LE 00 08 09 30 30 00 KE Ac VO 37 -0 -0 .0 00 NT ti TH 81 2- 1- 00 00 UC ve YR 80 20 20 90 [place] OX 71 17 17 64 IN 0 22 CV E S 88 PH AR MC MA G CY TA BL LL ET C, DB A CV S PH AR MA CY #0 54 37 69 08 09 4. 28 00 KE Ac T 45 -0 -0 00 00 NT ti D2 20 2- 1- 0 00 UC ve 15 20 20 90 [place] 1. 12 17 17 64 25 0 23 CV S MG PH AR (5 MA 0, CY 00 0 LL UN C, IT ) DB A CV S PH AR MA CY #0 54 37 LE 00 07 08 30 30 00 KE Ac VO 37 -0 -0 .0 00 NT ti TH 81 1- 4- 00 00 UC ve YR 80 20 20 88 [place] OX 91 17 17 82 IN 0 42 CV E S 10 PH 0 AR MC MA G CY TA BL LL ET C, DB A CV S PH AR MA CY #0 54 37 69 05 06 4. 28 00 KE Ac T 45 -3 -3 00 00 NT ti D2 20 0- 0- 0 00 UC ve 15 20 20 88 [place] 1. 12 17 17 80 25 0 02 CV S MG PH AR (5 MA 0, CY 00 0 LL UN C, IT ) DB A CV S PH AR MA CY #0 54 37 69 04 06 4. 28 00 KE Ac T 45 -2 -0 00 00 NT ti D2 20 7- 2- 0 00 UC ve 15 20 20 88 [place] 1. 12 17 17 80 25 0 02 CV S MG PH AR (5 MA 0, CY 00 0 LL UN C, IT ) DB A CV S PH AR MA CY #0 54 37 LE 00 04 06 30 30 00 KE Ac VO 37 -2 -0 .0 00 NT ti TH 81 8- 2- 00 00 UC ve YR 80 20 20 88 [place] OX 91 17 17 82 IN 0 42 CV E S 10 PH 0 AR MC MA G CY TA BL LL ET C, DB A CV S PH AR MA CY #0 54 37 GA 69 04 05 18 30 00 KE Ac BA 09 -0 -0 0. 00 NT ti PE 70 4- 5- 00 00 UC ve NT 81 20 20 0 88 [place] IN 41 17 17 32 2 15 CV 30 S 0 PH MG AR MA CA CY PS UL LL E C, DB A CV S PH AR MA CY #0 54 37 LE 00 03 04 30 30 00 KE Ac VO 37 -2 -2 .0 00 NT ti TH 81 5- 8- 00 00 UC ve YR 80 20 20 84 [place] OX 91 17 17 92 IN 0 47 CV E S 10 PH 0 AR MC MA G CY TA BL LL ET C, DB A CV S PH AR MA CY #0 54 37 BR 64 03 04 12 2 00 CL Ac OM 37 -1 -1 0. 00 IN ti PH 60 3- 4- 00 00 IC ve EN 65 20 20 0 42 IR 71 17 17 50 PH -P 6 20 AR SE MA UD CY OE PH ED -D M SY R BE 67 03 04 15 5 00 KE Ac NZ 87 -1 -1 .0 00 NT ti ON 70 4- 4- 00 00 UC ve AT 10 20 20 87 [place] AT 60 17 17 85 E 5 65 CV 20 S 0 PH MG AR MA CA CY PS UL LL E C, DB A CV S PH AR MA CY #0 54 37 LE 68 03 04 5. 5 00 CL Ac VO 08 -1 -1 00 00 IN ti FL 40 3- 4- 0 00 IC ve OX 48 20 20 42 AC 30 17 17 50 PH IN 1 33 AR MA 75 CY 0 MG TA BL ET CE 68 03 04 20 10 00 KE Ac FD 18 -1 -1 .0 00 NT ti IN 00 4- 4- 00 00 UC ve IR 71 20 20 87 [place] 16 17 17 85 30 0 63 CV 0 S MG PH AR CA MA PS CY UL E LL C, DB A CV S PH AR MA CY #0 54 37 GA 69 02 03 18 30 00 KE Ac BA 09 -2 -3 0. 00 NT ti PE 70 7- 1- 00 00 UC ve NT 81 20 20 0 87 [place] IN 41 17 17 49 2 62 CV 30 S 0 PH MG AR MA CA CY PS UL LL E C, DB A CV S PH AR MA CY #0 54 37 69 02 03 4. 28 00 KE Ac T 45 -2 -3 00 00 NT ti D2 20 5- 1- 0 00 UC ve 15 20 20 86 [place] 1. 12 17 17 92 25 0 00 CV S MG PH AR (5 MA 0, CY 00 0 LL UN C, IT ) DB A CV S PH AR MA CY #0 54 37 LE 00 02 03 30 30 00 KE Ac VO 37 -2 -3 .0 00 NT ti TH 81 4- 1- 00 00 UC ve YR 80 20 20 84 [place] OX 91 17 17 92 IN 0 47 CV E S 10 PH 0 AR MC MA G CY TA BL LL ET C, DB A CV S PH AR MA CY #0 54 37 LE 00 01 03 30 30 00 KE Ac VO 37 -2 -0 .0 00 NT ti TH 81 7- 3- 00 00 UC ve YR 80 20 20 84 [place] OX 91 17 17 92 IN 0 47 CV E S 10 PH 0 AR MC MA G CY TA BL LL ET C, DB A CV S PH AR MA CY #0 54 37 GA 69 01 03 18 30 00 KE Ac BA 09 -2 -0 0. 00 NT ti PE 70 9- 3- 00 00 UC ve NT 81 20 20 0 84 [place] IN 41 17 17 88 2 71 CV 30 S 0 PH MG AR MA CA CY PS UL LL E C, DB A CV S PH AR MA CY #0 54 37 69 01 03 4. 28 00 KE Ac T 45 -3 -0 00 00 NT ti D2 20 1- 3- 0 00 UC ve 15 20 20 86 [place] 1. 12 17 17 92 25 0 00 CV S MG PH AR (5 MA 0, CY 00 0 LL UN C, IT ) DB A CV S PH AR MA CY #0 54 37 OM 55 01 03 30 30 00 KE Ac EP 11 -2 -0 .0 00 NT ti RA 10 9- 3- 00 00 UC ve ZO 15 20 20 84 [place] LE 81 17 [address] S PH 20 AR MA MG CY CA LL PS C, UL E DB A CV S PH AR MA CY #0 54 37 GA 69 12 02 18 30 00 KE Ac BA 09 -3 -0 0. 00 NT ti PE 70 1- 3- 00 00 UC ve NT 81 20 20 0 84 [place] IN 41 16 17 88 2 71 CV 30 S 0 PH MG AR MA CA CY PS UL LL E C, DB A CV S PH AR MA CY #0 54 37 LE 00 12 02 30 30 00 KE Ac VO 37 -3 -0 .0 00 NT ti TH 81 1- 3- 00 00 UC ve YR 80 20 20 84 [place] OX 91 16 17 92 IN 0 47 CV E S 10 PH 0 AR MC MA G CY TA BL LL ET C, DB A CV S PH AR MA CY #0 54 37 DI 00 12 02 90 30 00 KE Ac AZ 37 -3 -0 .0 00 NT ti EP 80 1- 3- 00 00 UC ve AM 47 20 20 86 [place] 70 16 17 27 10 1 22 CV S MG PH AR TA MA BL CY ET LL C, DB A CV S PH AR MA CY #0 54 37 TR 50 12 02 30 30 00 KE Ac AZ 11 -3 -0 .0 00 NT ti OD 10 1- 3- 00 00 UC ve ON 43 20 20 84 [place] E 30 16 17 59 50 1 36 CV S MG PH AR TA MA BL CY ET LL C, DB A CV S PH AR MA CY #0 54 37 ME 00 12 02 21 6 00 KE Ac TH 60 -3 -0 .0 00 NT ti YL 34 1- 3- 00 00 UC ve VT 59 20 20 86 [place] ED 31 16 17 27 NI 5 21 CV SO S LO PH NE AR 4 MA CY MG LL DO C, SE PK DB A CV S PH AR MA CY #0 54 37 [place] 59 10 10 1 6. 5 CV 58 AR Ac IT 76 -2 -2 00 S 92 NO ti HR 23 5- 5- 0 PH 71 LD ve OM 06 20 20 AR YC 00 11 11 MA RI IN 1 CY CH # AR 25 D 0 05 W MG 43 7 TA BL ET LE 00 07 10 3 30 30 RI 90 AR Ac VO 37 -2 -0 .0 TE 25 NO ti TH 81 7- 8- 00 35 LD ve YR 81 20 20 AI OX 50 11 11 D RI IN 1 PH CH E AR AR 15 MA D 0 CY W MC G 03 TA 93 BL 8 ET # 03 93 ME 00 01 10 21 6 RI 90 AR Ac TH 60 -2 -0 .0 TE 14 NO ti YL 34 6- 3- 00 83 LD ve VT 59 20 20 AI ED 31 11 11 D RI NI 5 PH CH SO AR AR LO MA D NE CY W 4 03 MG 93 8 DO # SE 03 PK 93 FL 00 08 09 5 1. 1 CV 58 AR Ac UC 17 -3 -2 00 S 29 NO ti ON 25 1- 7- 0 PH 52 LD ve AZ 41 20 20 AR OL 21 11 11 MA RI E 1 CY CH 15 # AR 0 D MG 05 W 43 TA 7 BL ET AZ 59 08 09 1 6. 5 CV 58 AR Ac IT 76 -3 -2 00 S 29 NO ti HR 23 1- 7- 0 PH 48 LD ve OM 06 20 20 AR YC 00 11 11 MA RI IN 1 CY CH # AR 25 D 0 05 W MG 43 7 TA BL ET LE 00 07 09 5 30 30 CL 24 AR Ac VO 37 -2 -0 .0 IN 27 NO ti TH 81 7- 1- 00 IC 85 LD ve YR 81 20 20 OX 50 11 11 PH RI IN 1 AR CH E MA AR 15 CY D 0 W MC LL G C TA BL ET TR 50 08 08 99 30 30 CV 58 AR Ac AZ 11 -3 -3 .0 S 29 NO ti OD 10 1- 1- 00 PH 51 LD ve ON 43 20 20 AR E 30 11 11 MA RI 50 1 CY CH # AR MG D 05 W TA 43 BL 7 ET LO 00 08 08 99 30 30 CV 58 AR Ac RA 78 -3 -3 .0 S 29 NO ti TA 15 1- 1- 00 PH 50 LD ve DI 07 20 20 AR NE 70 11 11 MA RI 1 CY CH 10 # AR D MG 05 W 43 TA 7 BL ET FL 00 08 08 5 1. 1 CV 58 AR Ac UC 17 -3 -3 00 S 29 NO ti ON 25 1- 1- 0 PH 52 LD ve AZ 41 20 20 AR OL 21 11 11 MA RI E 1 CY CH 15 # AR 0 D MG 05 W 43 TA 7 BL ET AZ 59 08 08 1 6. 5 CV 58 AR Ac IT 76 -3 -3 00 S 29 NO ti HR 23 1- 1- 0 PH 48 LD ve OM 06 20 20 AR YC 00 11 11 MA RI IN 1 CY CH # AR 25 D 0 05 W MG 43 7 TA BL ET 00 08 08 1 40 13 CV 58 AR Ac 55 -3 -3 .0 S 29 NO ti 51 1- 1- 00 PH 49 LD ve 88 20 20 AR 30 11 11 MA RI 2 CY CH # AR D 05 W 43 7 AZ 59 07 08 1 6. 5 CV 57 AR Ac IT 76 -2 -2 00 S 91 NO ti HR 23 8- 4- 0 PH 60 LD ve OM 06 20 20 AR YC 00 11 11 MA RI IN 1 CY CH # AR 25 D 0 05 W MG 43 7 TA BL ET AZ 59 07 07 1 6. 5 CV 57 AR Ac IT 76 -2 -2 00 S 91 NO ti HR 23 8- 8- 0 PH 60 LD ve OM 06 20 20 AR YC 00 11 11 MA RI IN 1 CY CH # AR 25 D 0 05 W MG 43 7 TA BL ET LE 00 07 07 5 30 30 CL 24 AR Ac VO 37 -2 -2 .0 IN 27 NO ti TH 81 7- 7- 00 IC 85 LD ve YR 81 20 20 OX 50 11 11 PH RI IN 1 AR CH E MA AR 15 CY D 0 W MC LL G C TA BL ET HY 53 06 06 0 15 3 WA [address] 74 -2 -2 .0 L- 94 SH ti OC 60 4- 4- 00 MA 59 ve OD 10 20 20 RT 2 NE ON 90 11 11 IL -A 1 PH C CE AR TA MA NM CY NO # PH EN 10 05 5- 91 32 5 00 06 06 0 20 5 CV 57 CL Ac 40 -1 -1 .0 S 45 AR ti 60 3- 3- 00 PH 76 KE ve 35 20 20 AR 80 11 11 MA DE 5 CY RE # K J 05 43 7 LE 00 12 06 11 30 30 CV 55 AR Ac VO 37 -1 -0 .0 S 43 NO ti TH 81 8- 5- 00 PH 48 LD ve YR 81 20 20 AR OX 50 10 11 MA RI IN 1 CY CH E # AR 15 D 0 05 W MC 43 G 7 TA BL ET FL 00 05 06 4 1. 1 CV 57 AR Ac UC 17 -1 -0 00 S 16 NO ti ON 25 6- 1- 0 PH 00 LD ve AZ 41 20 20 AR OL 21 11 11 MA RI E 1 CY CH 15 # AR 0 D MG 05 W 43 TA 7 BL ET 00 05 05 0 30 7 CV 57 CL Ac 40 -2 -3 .0 S 24 AR ti 60 4- 1- 00 PH 10 KE ve 35 20 20 AR 80 11 11 MA DE 5 CY RE # K J 05 43 7 00 05 05 0 30 6 CL 23 CL Ac 59 -2 -2 .0 IN 91 AR ti 10 3- 3- 00 IC 16 KE ve 82 20 20 50 11 11 PH DE 1 AR RE MA K CY J LL C FL 00 05 05 4 1. 1 CV 57 AR Ac UC 17 -1 -1 00 S 16 NO ti ON 25 6- 6- 0 PH 00 LD ve AZ 41 20 20 AR OL 21 11 11 MA RI E 1 CY CH 15 # AR 0 D MG 05 W 43 TA 7 BL ET 00 05 05 20 5 RI 88 CL Ac 60 -1 -1 .0 TE 26 AR ti 33 0- 0- 00 98 KE ve 88 20 20 AI 12 11 11 D DE 8 PH RE AR K MA J CY 03 93 8 # 03 93 NA 53 05 05 0 60 30 CL 23 CL Ac VT 74 -0 -0 .0 IN 78 AR ti OX 60 4- 4- 00 IC 39 KE ve EN 19 20 20 00 11 11 PH DE 50 5 AR RE 0 MA K MG CY J TA LL BL C ET LE 00 12 04 11 30 30 CV 55 AR Ac VO 37 -1 -3 .0 S 43 NO ti TH 81 8- 0- 00 PH 48 LD ve YR 81 20 20 AR OX 50 10 11 MA RI IN 1 CY CH E # AR 15 D 0 05 W MC 43 G 7 TA BL ET SE 68 02 03 5 15 30 CL 23 AR Ac RT 18 -0 -2 .0 IN 23 NO ti RA 00 9- 5- 00 IC 79 LD ve LI 35 20 20 NE 30 11 11 PH RI 2 AR CH HC MA AR L CY D 10 W 0 LL MG C TA BL ET LE 00 12 02 11 30 30 CV 55 AR Ac VO 37 -1 -2 .0 S 43 NO ti TH 81 8- 3- 00 PH 48 LD ve YR 81 20 20 AR OX 50 10 11 MA RI IN 1 CY CH E # AR 15 D 0 05 W MC 43 G 7 TA BL ET AM 00 02 02 1 15 10 CL 23 AR Ac OX 09 -1 -1 0. IN 30 NO ti IC 34 9- 9- 00 IC 73 LD ve IL 15 20 20 0 LI 58 11 11 PH RI N 0 AR CH 25 MA AR 0 CY D MG W /5 LL C ML [place] SP AZ 59 12 02 0 6. 5 CV 56 AR Ac IT 76 -0 -1 00 S 12 NO ti HR 23 8- 7- 0 PH 01 LD ve OM 06 20 20 AR YC 00 10 11 MA RI IN 1 CY CH # AR 25 D 0 05 W MG 43 7 TA BL ET 00 02 02 5 15 30 CL 23 AR Ac 37 -0 -1 .0 IN 23 NO ti 84 9- 0- 00 IC 79 LD ve 18 20 20 80 11 11 PH RI 5 AR CH MA AR CY D W LL C AZ 59 01 01 1 6. 5 CV 55 AR Ac IT 76 -2 -2 00 S 88 NO ti HR 23 7- 7- 0 PH 13 LD ve OM 06 20 20 AR YC 00 11 11 MA RI IN 1 CY CH # AR 25 D 0 05 W MG 43 7 TA BL ET 60 01 01 1 24 6 CV 55 AR Ac 25 -2 -2 0. S 85 NO ti 80 6- 6- 00 PH 61 LD ve 23 20 20 0 AR 91 11 11 MA RI 6 CY CH # AR D 05 W 43 7 LI 00 01 01 1 10 3 CV 55 AR Ac DO 05 -2 -2 0. S 85 NO ti CA 43 6- 6- 00 PH 57 LD ve IN 50 20 20 0 AR E 04 11 11 MA RI 2% 9 CY CH # AR D SC 05 W OU 43 S 7 SO LN DO 00 01 01 1 20 10 CV 55 AR Ac XY 14 -2 -2 .0 S 85 NO ti CY 32 6- 6- 00 PH 56 LD ve CL 11 20 20 AR IN 20 11 11 MA RI E 5 CY CH HY # AR CL D AT 05 W E 43 10 7 0 MG TA B ME 59 01 01 1 21 6 CV 55 AR Ac TH 74 -2 -2 .0 S 85 NO ti YL 60 6- 6- 00 PH 58 LD ve VT 00 20 20 AR ED 10 11 11 MA RI NI 3 CY CH SO # AR LO D NE 05 W 4 43 7 MG DO SE PK LE 00 12 01 11 30 30 CV 55 AR Ac VO 37 -1 -1 .0 S 43 NO ti TH 81 8- 9- 00 PH 48 LD ve YR 81 20 20 AR OX 50 10 11 MA RI IN 1 CY CH E # AR 15 D 0 05 W MC 43 G 7 TA BL ET AM 00 12 12 1 30 10 RI 86 AR Ac OX 78 -3 -3 .0 TE 43 NO ti IC 12 0- 0- 00 86 LD ve IL 61 20 20 AI LI 30 10 10 D RI N 5 PH CH 50 AR AR 0 MA D MG CY W CA 03 PS 93 UL 8 E # 03 93 LE 00 12 12 11 30 30 CV 55 AR Ac VO 37 -1 -1 .0 S 43 NO ti TH 81 8- 8- 00 PH 48 LD ve YR 81 20 20 AR OX 50 10 10 MA RI IN 1 CY CH E # AR 15 D 0 05 W MC 43 G 7 TA BL ET VT 00 12 12 2 60 30 RI 86 AR Ac ED 60 -0 -0 .0 TE 14 NO ti NI 35 8- 8- 00 78 LD ve SO 33 20 20 AI NE 73 10 10 D RI 5 2 PH CH AR AR MG MA D CY W TA BL 03 ET 93 8 # 03 93 AZ 00 12 12 1 6. 5 RI 86 AR Ac IT 78 -0 -0 00 TE 14 NO ti HR 11 8- 8- 0 79 LD ve OM 49 20 20 AI YC 66 10 10 D RI IN 8 PH CH AR AR 25 MA D 0 CY W MG 03 TA 93 BL 8 ET # 03 93 ME 59 11 11 0 21 6 CV 55 AR Ac TH 74 -1 -1 .0 S 09 NO ti YL 60 8- 8- 00 PH 72 LD ve VT 00 20 20 AR ED 10 10 10 MA RI NI 3 CY CH SO # AR LO D NE 05 W 4 43 7 MG DO SE PK LE 00 12 10 5 30 30 CV 54 CL Ac VO 37 -2 -2 .0 S 52 AR ti TH 81 8- 6- 00 PH 19 KE ve YR 81 20 20 AR OX 30 09 10 MA DE IN 1 CY RE E # K 12 J 5 05 MC 43 G 7 TA BL ET SY 00 10 10 11 10 30 RI 85 AR Ac MB 18 -2 -2 .1 TE 52 NO ti IC 60 5- 5- 99 30 LD ve OR 37 20 20 AI T 02 10 10 D RI 16 0 PH CH 0- AR AR 4. MA D 5 CY W MC G 03 IN 93 DEE 8 LE # R 03 93 60 10 10 1 24 6 RI 85 AR Ac 25 -2 -2 0. TE 51 NO ti 80 3- 3- 00 44 LD ve 23 20 20 0 AI 91 10 10 D RI 6 PH CH AR AR MA D CY W 03 93 8 # 03 93 AZ 00 10 10 1 6. 5 RI 85 AR Ac IT 78 -2 -2 00 TE 51 NO ti HR 11 3- 3- 0 43 LD ve OM 49 20 20 AI YC 66 10 10 D RI IN 8 PH CH AR AR 25 MA D 0 CY W MG 03 TA 93 BL 8 ET # 03 93 LE 00 12 09 5 30 30 CV 54 CL Ac VO 37 -2 -2 .0 S 52 AR ti TH 81 8- 8- 00 PH 19 KE ve YR 81 20 20 AR OX 30 09 10 MA DE IN 1 CY RE E # K 12 J 5 05 MC 43 G 7 TA BL ET AZ 59 09 09 1 6. 5 CV 54 AR Ac IT 76 -0 -2 00 S 28 NO ti HR 23 4- 2- 0 PH 20 LD ve OM 06 20 20 AR YC 00 10 10 MA RI IN 1 CY CH # AR 25 D 0 05 W MG 43 7 TA BL ET TE 51 09 09 0 20 3 CL 22 CL Ac RC 67 -1 -1 .0 IN 33 AR ti ON 21 6- 6- 00 IC 17 KE ve AZ 30 20 20 OL 20 10 10 PH DE E 0 AR RE 0. MA K 8% CY J CR LL EA C M AZ 59 09 09 1 6. 5 CV 54 AR Ac IT 76 -0 -0 00 S 28 NO ti HR 23 4- 4- 0 PH 20 LD ve OM 06 20 20 AR YC 00 10 10 MA RI IN 1 CY CH # AR 25 D 0 05 W MG 43 7 TA BL ET 60 09 09 5 24 6 CV 54 AR Ac 25 -0 -0 0. S 28 NO ti 80 4- 4- 00 PH 21 LD ve 23 20 20 0 AR 91 10 10 MA RI 6 CY CH # AR D 05 W 43 7 49 08 08 1 40 8 CL 22 CL Ac 88 -3 -3 .0 IN 22 AR ti 40 0- 0- 00 IC 22 KE ve 77 20 20 70 10 10 PH DE 1 AR RE MA K CY J LL C EN 60 08 08 0 40 8 CL 22 CL Ac DO 95 -3 -3 .0 IN 22 AR ti CE 10 0- 0- 00 IC 23 KE ve T 60 20 20 5- 28 10 10 PH DE 32 5 AR RE 5 MA K TA CY J BL ET LL C 00 08 08 1. 1 RI 84 CL Ac 55 -1 -1 00 TE 50 AR ti 50 0- 0- 0 84 KE ve 16 20 20 AI 40 10 10 D DE 5 PH RE AR K MA J CY 03 93 8 # 03 93 00 08 08 30 5 RI 84 CL Ac 60 -1 -1 .0 TE 50 AR ti 33 0- 0- 00 83 KE ve 88 20 20 AI 12 10 10 D DE 8 PH RE AR K MA J CY 03 93 8 # 03 93 TR 00 05 08 1 42 7 RI 83 CL Ac AM 09 -1 -0 .0 TE 44 AR ti AD 30 8- 7- 00 06 KE ve OL 05 20 20 AI 80 10 10 D DE HC 1 PH RE L AR K 50 MA J CY MG 03 TA 93 BL 8 ET # 03 93 LE 00 12 08 11 30 30 WA 70 CL Ac VO 37 -2 -0 .0 L- 51 AR ti TH 81 8- 2- 00 MA 98 KE ve YR 81 20 20 RT 5 OX 30 09 10 DE IN 1 PH RE E AR K 12 MA J 5 CY MC # G TA 10 BL 05 ET 91 FU 00 07 07 0 10 10 CV 53 CL Ac RO 37 -2 -2 .0 S 84 AR ti SE 80 4- 4- 00 PH 20 KE ve NM 20 20 20 AR DE 81 10 10 MA DE 0 CY RE 20 # K J MG 05 43 TA 7 BL ET EN 60 07 07 0 30 6 CL 22 CL Ac DO 95 -2 -2 .0 IN 01 AR ti CE 10 2- 2- 00 IC 40 KE ve T 60 20 20 5- 28 10 10 PH DE 32 5 AR RE 5 MA K TA CY J BL ET LL C NI 00 06 07 0 20 10 WA 70 CL Ac TR 37 -2 -1 .0 L- 75 AR ti OF 83 2- 6- 00 MA 71 KE ve UR 42 20 20 RT 9 AN 20 10 10 DE TO 1 PH RE IN AR K MA J MO CY NO # -M CR 10 05 10 91 0 MG [place] 53 06 06 1 10 5 CL 21 CL Ac LF 74 -2 -2 .0 IN 86 AR ti AM 60 4- 4- 00 IC 49 KE ve ET 27 20 20 HO 20 10 10 PH DE XA 5 AR RE ZO MA K LE CY J -T MP LL C DS TA BL ET 00 06 06 0 20 5 CL 21 CL Ac 59 -2 -2 .0 IN 86 AR ti 10 4- 4- 00 IC 44 KE ve 38 20 20 50 10 10 PH DE 5 AR RE MA K CY J LL C VT 65 12 06 11 30 30 WA 70 CL Ac EN 16 -2 -0 .0 L- 51 AR ti AT 20 2- 3- 00 MA 24 KE ve AL 66 20 20 RT 4 [address] 0 PH RE US AR K MA J TA CY BL # ET 10 05 91 LE 00 12 06 11 30 30 WA 70 CL Ac VO 37 -2 -0 .0 L- 51 AR ti TH 81 8- 3- 00 MA 98 KE ve YR 81 20 20 RT 5 OX 30 09 10 DE IN 1 PH RE E AR K 12 MA J 5 CY MC # G TA 10 BL 05 ET 91 FL 00 03 05 5 1. 1 WA 70 AR Ac UC 17 -0 -2 00 L- 60 NO ti ON 25 1- 3- 0 MA 42 LD ve AZ 41 20 20 RT 1 OL 21 10 10 RI E 1 PH CH 15 AR AR 0 MA D MG CY W # TA BL 10 ET 05 91 TR 00 05 05 1 42 7 RI 83 CL Ac AM 09 -1 -1 .0 TE 44 AR ti AD 30 8- 8- 00 06 KE ve OL 05 20 20 AI 80 10 10 D DE HC 1 PH RE L AR K 50 MA J CY MG 03 TA 93 BL 8 ET # 03 93 TE 00 05 05 0 60 5 WA 70 CL Ac RB 11 -0 -1 .0 L- 69 AR ti UT 52 5- 1- 00 MA 49 KE ve AL 61 20 20 RT 7 IN 10 10 10 DE E 1 PH RE [place] AR K LF MA J AT CY E # 2. 5 10 MG 05 91 TA B TE 00 05 05 60 5 RI 83 CL Ac RB 52 -0 -0 .0 TE 26 AR ti UT 71 5- 5- 00 28 KE ve AL 31 20 20 AI IN 80 10 10 D DE E 1 PH RE [place] AR K LF MA J AT CY E 2. 03 5 93 MG 8 # TA 03 B 93 FE 00 03 05 9 30 30 WA 88 CL Ac RR 81 -3 -0 .0 L- 15 AR ti ET 30 1- 3- 00 MA 76 KE ve TS 01 20 20 RT 0 20 10 10 DE 32 6 PH RE 5 AR K MG MA J CY TA # BL ET 10 05 91 LE 00 12 05 11 30 30 WA 70 CL Ac VO 37 -2 -0 .0 L- 51 AR ti TH 81 8- 3- 00 MA 98 KE ve YR 81 20 20 RT 5 OX 30 09 10 DE IN 1 PH RE E AR K 12 MA J 5 CY MC # G TA 10 BL 05 ET 91 VT 65 12 05 11 30 30 WA 70 CL Ac EN 16 -2 -0 .0 L- 51 AR ti AT 20 2- 3- 00 MA 24 KE ve AL 66 20 20 RT 4 [address] 0 PH RE US AR K MA J TA CY BL # ET 10 05 91 LE 00 12 03 11 30 30 WA 70 CL Ac VO 37 -2 -2 .0 L- 51 AR ti TH 81 8- 2- 00 MA 98 KE ve YR 81 20 20 RT 5 OX 30 09 10 DE IN 1 PH RE E AR K 12 MA J 5 CY MC # G TA 10 BL 05 ET 91 FE 00 03 03 6 30 30 WA 88 CL Ac RR 57 -1 -1 .0 L- 15 AR ti OU 40 6- 6- 00 MA 66 KE ve S 60 20 20 RT 0 [place] 81 10 10 DE LF 0 PH RE AR K EC MA J CY 32 # 4 MG 10 05 TA 91 BL ET FL 00 03 03 5 1. 1 WA 70 AR Ac UC 17 -0 -1 00 L- 60 NO ti ON 25 1- 5- 0 MA 42 LD ve AZ 41 20 20 RT 1 OL 21 10 10 RI E 1 PH CH 15 AR AR 0 MA D MG CY W # TA BL 10 ET 05 91 FL 00 03 03 5 1. 1 WA 70 AR Ac UC 17 -0 -0 00 L- 60 NO ti ON 25 1- 3- 0 MA 42 LD ve AZ 41 20 20 RT 1 OL 21 10 10 RI E 1 PH CH 15 AR AR 0 MA D MG CY W # TA BL 10 ET 05 91 LE 00 12 02 01 30 30 WA 70 CL Ac VO 37 -2 -2 .0 L- 51 AR ti TH 81 8- 6- 00 MA 98 KE ve YR 81 20 20 RT 5 OX 30 09 10 DE IN 1 PH RE E AR K 12 MA J 5 CY MC G #5 TA 91 BL ET LE 00 12 01 00 30 30 WA 70 CL Ac VO 37 -2 -2 .0 L- 51 AR ti TH 81 8- 8- 00 MA 98 KE ve YR 81 20 20 RT 5 OX 30 09 10 DE IN 1 PH RE E AR K 12 MA J 5 CY MC G #5 TA 91 BL ET AM 00 01 01 00 15 10 WA 70 AR Ac OX 09 -0 -1 0. L- 53 NO ti IC 34 5- 4- 00 MA 11 LD ve IL 15 20 20 0 RT 3 LI 58 10 10 RI N 0 PH CH 25 AR AR 0 MA D MG CY W /5 #5 ML 91 [place] SP LE 00 11 12 01 30 30 WA 70 AR Ac VO 37 -1 -3 .0 L- 45 NO ti TH 81 3- 1- 00 MA 54 LD ve YR 80 20 20 RT 3 OX 90 09 09 RI IN 1 PH CH E AR AR 10 MA D 0 CY W MC G #5 TA 91 BL ET VT 65 12 12 00 30 30 WA 70 CL Ac EN 16 -2 -3 .0 L- 51 AR ti AT 20 2- 1- 00 MA 24 KE ve AL 66 20 20 RT 4 [address] 0 PH RE US AR K MA J TA CY BL ET #5 91 VT 68 12 12 00 20 5 WA 70 CL Ac OM 38 -2 -3 .0 L- 51 AR ti ET 20 2- 1- 00 MA 24 KE ve DEE 04 20 20 RT 3 ZI 10 09 09 DE NE 1 PH RE AR K 25 MA J CY MG #5 TA 91 BL ET AZ 00 11 12 01 6. 5 WA 70 AR Ac IT 78 -1 -0 00 L- 45 NO ti HR 11 3- 3- 0 MA 54 LD ve OM 49 20 20 RT 6 YC 66 09 09 RI IN 8 PH CH AR AR 25 MA D 0 CY W MG #5 TA 91 BL ET ME 00 11 12 01 21 6 WA 70 AR Ac TH 60 -1 -0 .0 L- 45 NO ti YL 34 3- 3- 00 MA 55 LD ve VT 59 20 20 RT 0 ED 31 09 09 RI NI 5 PH CH SO AR AR LO MA D NE CY W 4 #5 MG 91 DO SE PK ME 00 11 11 00 21 6 WA 70 AR Ac TH 60 -1 -1 .0 L- 45 NO ti YL 34 3- 9- 00 MA 55 LD ve VT 59 20 20 RT 0 ED 31 09 09 RI NI 5 PH CH SO AR AR LO MA D NE CY W 4 #5 MG 91 DO SE PK AZ 00 11 11 00 6. 5 WA 70 AR Ac IT 78 -1 -1 00 L- 45 NO ti HR 11 3- 9- 0 MA 54 LD ve OM 49 20 20 RT 6 YC 66 09 09 RI IN 8 PH CH AR AR 25 MA D 0 CY W MG #5 TA 91 BL ET LE 00 11 11 00 30 30 WA 70 AR Ac VO 37 -1 -1 .0 L- 45 NO ti TH 81 3- 9- 00 MA 54 LD ve YR 80 20 20 RT 3 OX 90 09 09 RI IN 1 PH CH E AR AR 10 MA D 0 CY W MC G #5 TA 91 BL ET DI 00 09 10 00 60 5 WA 70 GA Ac PH 53 -2 -2 .0 L- 39 IN ti EN 60 8- 2- 00 MA 80 EY ve HI [address] 09 09 09 NM 7 PH CH 12 AR AE .5 MA L CY S MG /5 #[address] LI 00 09 10 00 12 5 WA 70 GA Ac DO 60 -2 -2 0. L- 39 IN ti CA 31 8- 2- 00 MA 80 EY ve IN 39 20 20 0 RT 9 E 36 09 09 NM 2% 4 PH CH AR AE MA L SC CY S OU S #[address] 00 09 10 00 6. 5 WA 70 GA Ac 59 -2 -2 00 L- 39 IN ti 12 8- 2- 0 MA 80 EY ve 23 20 20 RT 9 50 09 09 NM 1 PH CH AR AE MA L CY S #5 91 FL 00 09 10 00 3. 6 WA 70 GA Ac UC 17 -2 -0 00 L- 39 IN ti ON 25 8- 8- 0 MA 66 EY ve AZ 41 20 20 RT 0 OL 14 09 09 NM E 6 PH CH 10 AR AE 0 MA L MG CY S TA #5 BL 91 ET ME 00 09 09 00 21 6 WA 73 SA Ac TH 60 -1 -2 .0 L- 12 DE ti YL 34 6- 4- 00 MA 26 K ve VT 59 20 20 RT 5 MO ED 31 09 09 DEE NI 5 PH ME SO AR D LO MA H NE CY 4 #1 MG 0- 19 DO 61 SE PK DO 53 09 09 00 14 7 WA 73 SA Ac XY 48 -1 -2 .0 L- 12 DE ti CY 90 6- 4- 00 MA 24 K ve CL 12 20 20 RT 1 MO IN 09 DEE E 2 PH ME HY AR D CL MA H AT CY E 10 #1 0 0- MG 19 61 TA B Immunization Name Date Rout CVX Reac Dose Comm Prov Is Faci e tion ent ider Refu lity Give sed n IIV3 11-0 141 CARMEN No CARMEN 8-20 K K VACC 12 MATTEO INE SPLI T VIRU MATTEO S 0.5 ML DOSA GE IM USE Vital Signs 11-02-2013 12:08 Name Value Interpretat Reference Comment ion Range Body 98.3 [degF] Temperature BP 70 mm[Hg] Diastolic BP Systolic 124 mm[Hg] Heart 72 /min Rate/Pulse O2% 98 % Respiratory 18 /min Rate 11-02-2013 12:02 Name Value Interpretat Reference Comment ion Range BP 70 mm[Hg] Diastolic BP Systolic 124 mm[Hg] Heart 72 /min Rate/Pulse O2% 98 % Respiratory 18 /min Rate Procedures Procedure DOS Code Location Performer Comment ANES 83211 [facility] ESOPH 7 Y OF THYRD [place] LARYNX I PHY TRACH & LYMPH NECK 1YR PARATHYRO 98811 [facility]/ [facility] Y OF JR EXPLORATI [place] ON I PHY PARATHYRO IDS PATH 71444 [facility] NATALIO CONSLTJ 7 Y [facility] SURG [facility] PHY FROZEN SCTJ 1 SPEC IMHISTOCH 49830 [facility] EM/CYTCHM 7 Y [facility] [place] [address] [facility] ROXANNE SURG 7 Y OF PATHOLOGY [place] I PHY GROSS&EMMA ROSCOPIC EXAM COLLECTIO 74670 [facility] N VENOUS 7 [facility] BLOOD INC INC VENIPUNCT URE CALCIUM 68779 [facility] TOTAL 7 [place] [address] [facility] PARATHORM 7 [facility] ONE INC [place] SOFT 51283 JEAN-CLAUDE COLIN TISSUE 7 Y OF JR HEAD & [place] NECK [place] [address] [facility] FREE 7 [facility] [place] [address] [facility] THYROID 7 [facility] STIMULATI INC INC NG HORMONE TSH COLLECTIO 56846 [facility] D[facility] N VENOUS 7 [facility] BLOOD INC INC VENIPUNCT URE CREATININ 35647 [facility] Fisher OTHER 7 [facility] SOURCE INC INC CALCIUM 90527 [facility] URINE 7 [facility] QUANTITAT INC INC REYES TIMED SPECIMEN 25 50146 [facility] HYDROXY 7 [facility] INCLUDES [place] [address] [facility] PARATHORM 7 [facility] ONE INC INC COLLECTIO 89458 [facility] D[facility] N VENOUS 7 [facility] BLOOD INC INC VENIPUNCT URE BASIC 85330 [facility] METABOLIC 7 [facility] PANEL INC INC CALCIUM TOTAL MYOCARDIA 36506 [place] [facility] L SPECT 7 MEDICAL SINGLE IMAGING STUDY AT ASS REST OR STRESS DXA BONE 23158 [place] [facility] DENSITY 7 MEDICAL STUDY 1/> IMAGING SITES ASS AXIAL SKEL TECHNETIU A9500 [facility] Virk TC-99M 7 [facility] SESTAMIBI INC INC DX PER STUDY DOSE RADIOLOGI 06802 [place] C EXAM 7 MEDICAL CHEST 2 IMAGING VIEWS ASS FRONTAL&L ATERAL COLLECTIO 03932 [facility] N VENOUS 7 [facility] BLOOD INC INC VENIPUNCT URE BASIC 05733 [facility] D[facility] METABOLIC 7 [facility] PANEL INC INC CALCIUM TOTAL CREATININ 36427 [facility] Fisher OTHER 7 [facility] SOURCE INC INC VOLUME 72588 [facility] D[facility] MEASUREME 7 [facility] NT TIMED INC INC COLLECTIO N EACH CALCIUM 39892 [facility] URINE 7 [facility] QUANTITAT INC INC REYES TIMED SPECIMEN HOSPITAL G0463 [facility] 7 Y Y T CLIN HOSPITAL HOSPITAL VISIT ASSESS & MGMT PT ADJT TIS 11131 [facility] TRNS/REAR 7 [facility] GMT INC INC F/C/C/M/N /A/G/H/F 10SQCM/< [place] [address] [facility], [place] SURG 7 [facility] PATHOLOGY GROSS&EMMA ROSCOPIC EXAM ANES 11290 [facility] INTEG 7 ANESTH [facility] & OF THE NRV HEAD BLUE NECK&POST ERIOR TRUNK COLLECTIO 96721 [facility] D[facility] N VENOUS 6 [facility] BLOOD INC INC VENIPUNCT URE BASIC 58938 [facility] METABOLIC 6 [facility] PANEL INC INC CALCIUM TOTAL ECG 71642 [facility] VEE JR ROUTINE 6 [facility] W/LEAST P 12 LDS I&R ONLY BLOOD 06472 [facility] COUNT 6 [facility] COMPLETE INC INC AUTO&AUTO DIFRNTL WBC ECG 41179 [facility] ROUTINE 6 [facility] ECG INC INC W/LEAST 12 LDS TRCG ONLY W/O I&R HOSPITAL G0463 [facility] 6 Y Y T [facility] HOSPITAL VISIT ASSESS & MGMT PT US SOFT 89248 [place] WH[facility] ALL TISSUE 6 MEDICAL HEAD & IMAGING NECK REAL ASS TIME IMGE DOCM DIAGNOSTI G0204 [facility] RIF C 6 Y OF MAMMOGRAP [place] HY INCL I PHY CAD WHEN PERF; BILAT RADEX 66965 JEAN-CLAUDE HANKINS FOOT 6 Y OF [place] COMPLETE [place] MINIMUM 3 I PHY VIEWS RADEX 00442 [facility] 6 Y OF [place] MINIMUM 3 [place] VIEWS I PHY US BREAST 28290 [facility] UNI REAL 6 Y OF TIME [place] WITH I PHY IMAGE LIMITED RADEX 65386 [place] HAND 5 MEDICAL BLAIR MINIMUM 3 IMAGING VIEWS ASS RADEX 17780 SUZIE TALLEYUTCHER FOOT 5 MEDICAL BLAIR COMPLETE IMAGING MINIMUM 3 [facility] G0378 [facility] OBSERVATI 5 [facility] ON INC INC SERVICE PER HOUR COLLECTIO 90916 [facility] D[facility] N VENOUS 5 [facility] BLOOD INC INC VENIPUNCT URE BASIC 24670 [facility] METABOLIC 5 [facility] PANEL INC INC CALCIUM TOTAL BLOOD 83645 [facility] COUNT 5 [facility] COMPLETE INC INC AUTO&AUTO DIFRNTL WBC BLOOD 24811 [facility] COUNT 5 [facility] COMPLETE INC INC AUTO&AUTO DIFRNTL WBC BLOOD 51337 [facility] COUNT 5 [facility] HEMOGLOBI INC INC N INJECTION J0131 [facility] 5 [facility] ACETAMINO INC INC PHEN 10 MG URNLS DIP 81865 [facility] 5 [facility] STICK/TAB INC INC LET REAGENT AUTO MICROSCOP Y URINE 88068 [facility] 5 [facility] TEST INC INC VISUAL COLOR CMPRSN METHS CULTURE 43097 [facility] BACTERIAL 5 [facility] INC INC QUANTTATI VE COLONY COUNT URINE LEVEL 37837 [facility], CHANG SURG 5 [facility] NAHID PATHOLOGY GROSS&EMMA ROSCOPIC EXAM BASIC 72871 [facility] METABOLIC 5 [facility] PANEL INC INC CALCIUM TOTAL COLLECTIO 85303 [facility] N VENOUS 5 [facility] BLOOD INC [place] [address] [facility], CHANG SURG 5 [facility] NAHID PATHOLOGY GROSS&EMMA ROSCOPIC EXAM INJECTION J2405 [facility] 5 [facility] ONDANSETR INC INC ON HCL PER 1 MG ANESTHESI 98331 JASON ROSADO A VAGINAL 5 ANESTH CARLA OF THE HYSTERECT BLUE YURI INCL BIOPSY LAPS 14933 [facility] W/VAG 5 [facility] HYSTERECT INC INC 250 GM/&RMVL TUBE&/OVA MARLENY BLOOD 97190 [facility] COUNT 5 [facility] HEMATOCRI INC INC T HOSPITAL G0378 [facility] OBSERVATI 5 [facility] [place] [address] [facility] ELIAN TRANSVAGI 5 [place] [address] [facility] THYROID 5 [facility] STIMULATI INC INC NG HORMONE TSH COLLECTIO 39811 [facility] D[facility] N VENOUS 5 [facility] [place]LOOD [place] [address] [facility], JAMARCUS PAT SURG 5 [facility] PATHOLOGY GROSS&EMMA ROSCOPIC EXAM COLPOSCOP 33139 [facility] PLUMMER Y CERVIX 5 PHYSICIAN KATELYN ENDOCERVI S GROUP GORDON CURETTAGE CYTP C/V 95606 [facility], PICKLESIM AUTO THIN 5 LLC ER JR LAUREANO [place] [address] PLUMMER PLUMMER TRANSVAGI 4 KATELYN KATELYN NAL COLPOSCOP 80163 PLUMMER PLUMMER Y CERVIX 4 KATELYN KATELYN VAG ELTRD CONIZATIO N CERVIX URINE 67741 PLUMMER PLUMEMR 4 KATELYN KATELYN TEST VISUAL [place] [address] [facility], CHANG SURG 4 [facility] NAHID PATHOLOGY GROSS&[place] [address] [facility], FRANKY SURG 4 [facility] PATHOLOGY GROSS&EMMA ROSCOPIC EXAM COLPOSCOP 92278 PLUMMER PLUMMER Y CERVIX 4 KATELYN KATELYN BX CERVIX & [place] [address] PLUMMER PLUMMER TRANSVAGI 4 KATELYN KATELYN NAL CYTP C/V 41097 [facility] AUTO THIN 4 NAHID NAHID LYR PREPJ SCR MNL RESCR PHYS CYTP 78594 [facility] CERVICAL/ 4 NAHID NAHID VAGINAL REQ INTERP PHYSICIAN IAADIADOO 31904 [facility] 4 PHYSICIAN PHYSICIAN STREPTOCO S GROUP S GROUP CCUS GROUP A RADIOLOGI 36837 [facility] C EXAM 3 [facility] CHEST 2 INC INC VIEWS FRONTAL&L ATERAL IAADI 66399 [facility] INFLUENZA 3 [facility] B VIRUS INC INC IAADI 79637 [facility] INFFLUENZ 3 [facility] A A VIRUS INC INC SEDIMENTA 00826 COMBINED COMBINED TION RATE 3 PHYSICIAN PHYSICIAN RBC S LA S LA NON-AUTOM ATED 25 18608 LAB EN[facility]QUE LAB ENRIQUE HYDROXY 3 WINSOME WINSOME INCLUDES HOLDINGS [place] [address] COMBINED COMBINED BLOOD/URI 3 PHYSICIAN PHYSICIAN C ACID S LA S LA LIPID 44421 COMBINED COMBINED PANEL 3 PHYSICIAN PHYSICIAN S LA S LA THYROID 07561 COMBINED COMBINED HORM 3 PHYSICIAN PHYSICIAN UPTK/THYR S LA S LA OID HORMONE BINDING RATIO GENERAL 62791 COMBINED COMBINED HEALTH 3 PHYSICIAN PHYSICIAN PANEL S LA S LA ANTINUCLE 75421 LAB ENRIQUE LAB ENRIQUE AR 3 WINSOME WINSOME ANTIBODIE HOLDINGS HOLDINGS S CROW RHEUMATOI 57170 COMBINED COMBINED D FACTOR 3 PHYSICIAN PHYSICIAN QUALITATI S LA S LA VE DIAGNOSTI G0206 YOEL YOEL C 3 BLAIR BLAIR MAMMOGRAP HY INCL CAD WHEN PERF; UNI SCREENING G0202 [facility] MAMMOGRAP INC INC HY MAXIM INCL CAD WHEN PERFORMD 52074 [facility] AIDED 3 [facility] DETECTION INC INC SCREENING MAMMOGRAP HY IM ADM 76597 AMELIA FELIPE PRQ ID 2 SUBQ/IM NJXS 1 VACCINE IIV3 58492 AMELIA FELIPE VACCINE 2 SPLIT VIRUS 0.5 ML DOSAGE IM USE RADEX 43389 [facility] ANKLE 2 [facility] COMPLETE INC INC MINIMUM 3 VIEWS RADEX 79012 [facility] FOOT 2 [facility] COMPLETE INC INC MINIMUM 3 VIEWS RADIOLOGI 93903 [facility] C 2 [facility] EXAMINATI INC INC ON KNEE 3 VIEWS NRV CNDJ 87618 YESICA YESICA AMPLT&LAT 2 OCTAVIO OCTAVIO ENCY EA NRV MOTOR W/F-WAVE STD NRV CNDJ 17386 YESICA YESICA AMPLITUDE 2 OCTAVIO OCTAVIO & LATENCY EACH NERVE SENSORY H-REFLEX 85226 YESICA YESICA AMPLT&LAT 2 OCTAVIO OCTAVIO ENCY GASTRCN/S OLEUS MUSC NEEDLE 81564 YESICA YESICA EMG EA 2 OCTAVIO OCTAVIO EXTREMTY W/PARASPI NL AREA COMPLETE SUSCEPTIB 27547 [facility] LTY STDY 1 [facility] ANTIMICRB INC INC IAL MICRO/AGA R DILUTJ CUL BACT 70929 [facility] XCPT 1 [facility] URINE INC INC BLOOD/STO OL AEROBIC ISOL CUL BACT 14935 [facility] AEROBIC 1 [facility] ADDL INC [place] [address] CHIPPS CHANG SURG 1 JAI & NAHID PATHOLOGY DUBILIER GROSS&EMMA ROSCOPIC EXAM EXC B9 52579 C JAYLENE SCHULSTAD LESION 1 SCHULSTAD TREVON KARMEN JACKSON MD PSC SK TG T/A/L 1.1-2.0 CM OPHTH 35721 [facility] 1 VISION XM&EVAL COMPRE NEW PT 1/> VST EXC B9 73464 C JAYLENE SCHULSTAD LESION 1 SCHULSTAD TREVON KARMEN JACKSON MD PSC SK TG T/A/L 0.5 CM/< HYSTEROSC 6812 [facility] OPY 1 [facility] INC INC ENDOMETRI 6823 [facility] AL 1 [facility] [place] [address] CHIPPS CHANG SURG 1 JAI & NAHID PATHOLOGY DUBILIER GROSS&EMMA ROSCOPIC EXAM ANES 16370 [facility] HYSTEROSC 1 ANESTH CARLA OPY&/HYST OF THE EROSALPIN BLUE GOGRAPHY W/BX HYSTEROSC 26058 [facility] OPY 1 [facility] [place] [address] [facility] INFUSION 1 [facility] THERAPY INC INC PROPHYLAX IS/DX EA HOUR THERAPEUT 20063 [facility] IC 1 [facility] INJECTION INC INC IV PUSH EACH NEW DRUG BLOOD 93615 [facility] COUNT 1 [facility] COMPLETE INC INC AUTO&AUTO DIFRNTL WBC GONADOTRO 53672 [facility] PIN 1 [facility] CHORIONIC INC INC QUALITATI VE BASIC 38668 [facility] METABOLIC 1 [facility] [place] [place] [address] WOMEN'S PLUMMER TRANSVAGI 1 [facility] CYTP 24811 UNA HEART SLCTV 1 LABORATOR LABORATOR CELL IES INC IES INC ENHANCEME NT INTERPJ XCPT C/[place] [address] [facility] THYROID 0 [facility] STIMULATI INC INC NG HORMONE TSH THYROID 94967 [facility] HORM 0 [facility] UPTK/THYR INC [place] [address] [facility] THYROXINE 0 [facility] TOTAL INC INC CYTP C/V 07117 PATHOLOGY PATHOLOGY AUTO THIN 0 & & LYR CYTOLOGY CYTOLOGY PREPJ SCR LAB LAB MNL RESCR PHYS CYTP [address] PATHOLOGY PATHOLOGY CERVICAL/ 0 & & VAGINAL CYTOLOGY CYTOLOGY REQ LAB LAB INTERP PHYSICIAN OT BILAT 6629 [facility]O 0 [facility] DESTRUC/O INC INC CCLUSION FALLOP TUBES THERAPEUT 54086 [facility] IC 0 [facility] INJECTION INC [place] [address] [facility] INFUSION 0 [facility] THERAPY/P INC INC ROPHYLAXI S /DX 1ST TO 1 HR BLOOD 02886 [facility] COUNT 0 [facility] COMPLETE INC INC AUTO&[place] [address] [facility] INFUSION 0 [facility] THERAPY INC INC PROPHYLAX IS/DX EA HOUR URINE 56035 MAR[facility]VA 0 [facility] TEST INC INC VISUAL COLOR CMPRSN METHS LAPAROSCO 84296 [facility] PY W/PLMT 0 [facility] INC INC OCCLUSION DEVICE OVIDUCTS ANES IPER 20618 [facility] JIM LISA LWR ABD 0 ANESTH W/LAPS OF THE TUBAL BLUE LIGATION/ TRANSECT CIRCUMCIS 87292 [facility] ION 0 PHYSICIAN OCTAVIO W/CLAMP/O GROUP TH DEV PCC W/BLOCK INITIAL 27660 [facility] INPATIENT 0 PHYSICIAN OCTAVIO CONSULT GROUP NEW/ESTAB PCC PT 55 MIN VAGINAL 27361 [facility], DELIVERY 0 [facility] ONLY CLINIC OF W/POSTPAR CHAR CARE [place] [facility] NEURAXIAL 50354 [facility] ANESTH DANIELLA Aj ANALG/ANE OF THE S PLND [place]UE[place] VAGINAL DELIVERY OTHER 7359 [facility] MANUALLY 0 [facility] ASSISTED INC INC DELIVERY OBSERVATI 75094 [facility] ON/INPATI 0 PHYSICIAN [facility] PCC CARE 55 MINUTES 90825 [facility], NONSTRESS 0 [facility] TEST [facility]IN[facility] OF [place] [facility] CUL BACT 26488 COMBINED COMBINED XCPT 0 PHYSICIAN PHYSICIAN URINE S LAB S LAB BLOOD/STO OL AEROBIC ISOL FTL 20154 [facility] FIBRONECT 0 [facility] IN INC INC CERVICOVA G SECRETION S SEMI-DESIREE URNLS DIP 68604 [facility] 0 [facility] STICK/TAB INC INC LET REAGENT AUTO MICROSCOP Y 31256 [facility] D[facility] NONSTRESS 0 [facility] TEST INC INC OBSERVATI 55414 [facility] ON/INPATI 0 PHYSICIAN [facility] PCC CARE 55 MINUTES DOPPLER 70997 [facility], VELOCIMET 0 [facility] RY CLINIC OF UMBILICAL ARTERY [place] [facility] 32810 [facility], BIOPHYSIC 0 [facility] AL CLINIC OF PROFILE W/O [place] NON-STRES [facility] [place] PREG 49335 [facility], UTERUS 0 [facility] REAL TIME CLINIC OF F/U [place]NSABDL [place] PER [facility] CULTURE 54178 [facility] BACTERIAL 0 [facility] INC INC QUANTTATI VE COLONY COUNT URINE URNLS DIP 94225 [facility] 0 [facility] STICK/TAB INC INC LET REAGENT AUTO MICROSCOP Y FTL 77587 [facility] FIBRONECT 0 [facility] IN INC INC CERVICOVA G SECRETION S SEMI-DESIREE 84356 [facility], NONSTRESS 0 [facility] J TEST [facility]INIC OF [facility] G0378 [facility] OBSERVATI 0 [facility] ON INC INC SERVICE PER HOUR OBSERVATI 76228 [facility], ON CARE 0 [facility] DISCHARGE [facility]IN[facility] G0378 [facility] OBSERVATI 0 [facility] ON INC INC SERVICE PER HOUR URNLS DIP 76601 [facility] 0 [facility] STICK/TAB INC INC LET REAGENT AUTO MICROSCOP Y INITIAL 32521 [facility], OBSERVATI 0 [facility] ON CLINIC OF CARE/DAY 30 [place] MINUTES [facility] CULTURE 35592 COMBINED COMBINED BACTERIAL 0 PHYSICIAN PHYSICIAN S LAB S LAB QUANTTATI VE COLONY COUNT URINE FTL 85504 [facility] D[facility] FIBRONECT 0 [facility] IN INC INC CERVICOVA G SECRETION S SEMI-DESIREE GLUCOSE 80818 [facility], POST 0 [facility] GLUCOSE CLINIC OF DOSE [place] [facility] GLUCOSE 22492 [facility], TOLERANCE 0 [facility] TEST GTT [facility] [address] [facility], NONSTRESS 0 [facility] [address] [facility], NONSTRESS 0 [facility] [address] [facility], NONSTRESS 0 [facility] J TEST [facility] [place] [facility] CULTURE 63299 [facility] BACTERIAL 0 [facility] INC INC QUANTTATI VE COLONY COUNT URINE FTL 52277 [facility] FIBRONECT 0 [facility] IN INC INC CERVICOVA G SECRETION S SEMI-DESIREE URNLS DIP 30279 [facility] 0 [facility] STICK/TAB INC INC LET REAGENT AUTO MICROSCOP Y OBSERVATI 91693 [facility] ON/INPATI 0 [facility] PCC CARE 55 MINUTES US PREG 18388 [facility], UTERUS 0 [facility] AFTER 1ST CLINIC OF TRIMEST [place] [facility] [place] [address] MARVA TYLERON FREE 0 [facility] [place] [address] [facility] THYROID 0 [facility] STIMULATI INC INC NG HORMONE TSH ALPHA-FET 21903 [facility] OPROTEIN 0 [facility] [place] [address] MAR[facility] TYLERON ESTRIOL 0 [facility] INC INC GONADOTRO 20785 [facility] PIN 0 [facility] CHORIONIC INC INC QUANTITAT REYES OBSERVATI 36603 [facility] ON/INPATI 0 [facility] PCC CARE 55 MINUTES URNLS DIP 18935 [facility] 0 [facility] STICK/TAB INC INC LET REAGENT AUTO MICROSCOP Y 19071 [facility] NONSTRESS 0 [facility] TEST INC INC MOLECULAR 91015 MOLECULAR MOLECULAR DX AMP 0 [facility] PATHOLOGY PATHOLOGY MULTIPLEX LAB LAB EA ADDL NETWORK NETWORK SEQ INC INC MOLEC 31437 MOLECULAR MOLECULAR SEP&ID HI 0 RESOLU PATHOLOGY PATHOLOGY TQ EACH LAB LAB NUCLEIC NETWORK NETWORK ACID PREP INC INC MOLEC 99886 MOLECULAR MOLECULAR ISOL/XTRJ 0 HP PATHOLOGY PATHOLOGY NUCLEIC LAB LAB ACID EA NETWORK NETWORK TYPE INC INC MOLECULAR 10077 MOLECULAR MOLECULAR DX AMP 0 [facility]ARGET PATHOLOGY PATHOLOGY MULTIPLEX LAB LAB 1ST 2 NETWORK NETWORK SEQ INC INC MOLECULAR 59622 MOLECULAR MOLECULAR 0 DIAGNOSTI PATHOLOGY PATHOLOGY CS LAB LAB INTERPRET NETWORK NETWORK ATION & INC INC REPORT MUTATION 04319 MOLECULAR MOLECULAR ID 0 ENZYMATIC PATHOLOGY PATHOLOGY LAB LAB LIG/PRIME NETWORK NETWORK R XTN 1 INC INC SGM EA CYTP C/V 08415 PATHOLOGY PATHOLOGY AUTO THIN 0 & & LYR CYTOLOGY CYTOLOGY PREPJ SCR LAB LAB MNL RESCR PHYS IADNA 83309 PATHOLOGY PATHOLOGY CHLAMYDIA 0 & & CYTOLOGY CYTOLOGY TRACHOMAT LAB LAB IS AMPLIFIED PROBE TQ IADNA 93141 PATHOLOGY PATHOLOGY NEISSERIA 0 & & CYTOLOGY CYTOLOGY GONORRHOE LAB LAB [place] P[place] 70180 [facility], UTERUS 9 [facility] REAL TIME CLINIC OF W/IMAGE DCMTN [place] [facility] GONADOTRO 51280 [facility] PIN 9 [facility] CHORIONIC INC INC QUANTITAT REYES US PREG 18060 [facility] UTERUS 9 [facility] REAL TIME INC INC W/IMAGE DCMTN TRANSVAG GONADOTRO 51314 [facility] PIN 9 [facility] CHORIONIC INC INC QUANTITAT REYES URINE 01555 [facility] 9 [facility] TEST INC INC VISUAL COLOR CMPRSN METHS CULTURE 70348 [facility] BACTERIAL 9 [facility] INC INC QUANTTATI VE COLONY COUNT URINE URNLS DIP 07543 [facility] 9 [facility] STICK/TAB INC INC LET REAGENT AUTO MICROSCOP Y PRESSURIZ 15333 [facility] ED/NONPRE 9 [facility] SSURIZED INC INC INHALATIO N TREATMENT URINE 26231 [facility] 9 [facility] TEST INC INC VISUAL COLOR CMPRSN METHS RADIOLOGI 86756 [facility] C EXAM 9 [facility] CHEST 2 INC INC VIEWS FRONTAL&L ATERAL Encounters Encounter Start End Date Code Location Performer Type Date OFFICE 12350 COREEN VANEGAS 7 7 MEDICINE T VISIT [place] 15 [facility] MAR[facility] - 7 7 [facility] 7 7 Y OF JR [facility] MARVA - 7 7 [facility] MARVA - 7 7 [facility]PATIEN [facility] MARVA - 7 7 [facility]EN [facility] MARVA - 7 7 [facility] OFFICE 23461 [facility] OUTPATIEN 7 7 [facility] T VISIT 5 [facility] MARVA - 7 7 [facility] OUTPATIEN [facility] MARVA - 7 7 [facility] MARVA - 7 7 [facility] 63475 [facility] 7 Y OF T NEW [facility] MARVA - 6 6 [facility] OUTPATIEN [facility] T OFFICE 54582 [facility] OUTPATIEN 6 6 PHYSICIAN T [facility] 10 S [facility] MINUT[facility] OFFICE 95018 [facility] OUTPATIEN 6 6 NAHID NAHID T VISIT 15 [facility] UNIVERSIT - 6 6 Y [facility] T OFFICE 26100 [facility] OUTPATIEN 6 6 Y OF [place] CHR T VISIT [facility] 25 I [facility] MARVA - 6 6 [facility] OUTPATIEN [facility] EMERGENCY 16309 KAM APONTE 6 6 PHYSICIAN U LUZ [facility]IA DEPARTMEN S, PLL[facility] T VISIT MODERATE SEVERITY EMERGENCY 79712 [facility] 6 6 [facility] DEPARTMEN INC T VISIT LOW/MODER SEVERITY OFFICE 44696 [facility] CONSULTAT 6 6 Y [place] CHR ION [facility] NEW/ESTAB I PHY PATIENT 60 MIN [facility] 77065 [facility] 5 5 PHYSICIAN KENYETTA T VISIT S GROUP 15 MINUTES HOSPITAL MAR[facility] - 5 5 [facility] MARVA - 5 5 [facility] PERIODIC 44128 ELIAN PLUMMER PREVENTIV 4 4 KATELYN KATELYN E MED EST PATIENT 18-39 YRS OFFICE 45923 [facility] 4 4 PHYSICIAN T VISIT S GROUP 15 MINUTES Emergency MOON MONIQUE MD (ER) 3 11:54 3 12:[address] [facility] EMERGENCY 35793 [facility] 3 3 [facility] T VISIT LOW/MODER SEVERITY HOSPITAL MARVA - 3 3 [facility] 49353 ENEIDA MONIQUE 3 3 [facility] T VISIT MODERATE SEVERITY OFFICE 65127 SHIRIN SHELBYPATIJENNA 3 3 NAHID NAHID T VISIT 15 MINUTES HOSPITAL MAR[facility] - 3 3 [facility] OUTPATIEN [facility] T OFFICE 09831 [facility] 3 3 PHYSICIAN T VISIT S GROUP 15 MINUTES OFFICE 67557 SHIRIN VANEGAS 3 3 NAHID NAHID T VISIT 15 MINUTES HOSPITAL [facility]VA - 3 3 [facility] OUTPATIEN INC T EMERGENCY 80933 MAR[facility] 2 2 [facility] DEPARTMEN INC T VISIT LOW/MODER SEVERITY EMERGENCY 56271 LIZA DE JESUS 2 2 III LISA III LISA DEPARTMEN T VISIT MODERATE SEVERITY HOSPITAL [facility] - 2 2 [facility] OUTPATIEN INC T OFFICE 98185 SHIRIN VANEGAS 2 2 NAHID NAHID T VISIT 15 MINUTES HOSPITAL [facility] - 2 2 [facility] OUTPATIEN INC T OFFICE 57698 SHIRIN VANEGAS 2 2 NAHID NAHID T VISIT 15 MINUTES OFFICE 71018 SHIRIN VANEGAS 1 1 NAHID NAHID T VISIT 15 MINUTES HOSPITAL MARVA - 1 1 [facility] OUTPATIEN INC T OFFICE 09959 SIGRID MATTA OUTPATIEN 1 1 CHR CHR T NEW 30 MINUTES OFFICE 71320 SHIRIN VANEGAS 1 1 NAHID NAHID T VISIT 15 MINUTES HOSPITAL [facility] - 1 1 [facility] OUTPATIEN INC T [facility]OSPITAL MAR[facility] - 1 1 [facility]PATIEN INC T OFFICE 85078 [facility] OUT[facility]IEN 1 1 HEALTH KATELYN T VISIT CLINIC OF 15 CRISTINO MINUTES OFFICE 09909 SHIRIN VANEGAS 1 1 NAHID NAHID T VISIT 15 MINUTES HOSPITAL [facility] - 0 0 [facility] OUTPATIEN INC T OFFICE 85149 SHIRIN VANEGAS 0 0 NAHID NAHID T VISIT 15 MINUTES OFFICE 51680 [facility] OUTPATIEN 0 0 HEALTH KATELYN T VISIT CLINIC OF 15 CRISTINO MINUTES OFFICE 06347 SHIRIN VANEGAS 0 0 NAHID NAHID T VISIT 15 MINUTES HOSPITAL [facility] - 0 0 [facility] OFFICE 31263 [facility] OUTPATIEN 0 0 HEALTH KATELYN T VISIT CLINIC OF 15 CRISTINO [facility] MARVA - 0 0 [facility] INPATIENT [facility] OFFICE 40672 [facility], OUTPATIEN 0 0 [facility] J T VISIT CLINIC OF 15 MINUTES [facility] OFFICE 93197 [facility], OUTPATIEN 0 0 [facility] J T VISIT CLINIC OF 15 MINUTES [facility] OFFICE 97286 [facility], OUTPATIEN 0 0 [facility] J T VISIT CLINIC OF 15 MINUTES [facility] MARVA - 0 0 [facility] OUTPATIEN [facility] MARVA - 0 0 [facility]EN [facility] MARVA - 0 0 [facility] OFF[facility] 81037 [facility], OUTPATIEN 0 0 [facility] J T VISIT CLINIC OF 15 MINUTES [facility] OFFICE 29634 [facility], OUTPATIEN 0 0 [facility] J T VISIT CLINIC OF 15 MINUTES [facility] MARVA - 0 0 [facility] OFF[facility] 89274 [facility], OUTPATIEN 0 0 [facility] J T VISIT CLINIC OF 15 MINUTES [facility] OFFICE 15407 [facility], OUTPATIEN 0 0 [facility] J T VISIT CLINIC OF 15 MINUTES [facility] OFFICE 02136 [facility], OUTPATIEN 0 0 [facility] J T VISIT CLINIC OF 15 MINUTES [facility] OFFICE 11083 [facility], OUTPATIEN 0 0 [facility] J T VISIT CLINIC OF 15 MINUTES [facility] MARVA - 0 0 [facility] OUTPATIEN [facility] T OFFICE 29557 [facility], OUTPATIEN 0 0 [facility] J T VISIT CLINIC OF 15 MINUTES [facility] MARVA - 0 0 [facility] OUTPATIEN [facility] T OFFICE 64148 [facility], OUTPATIEN 0 0 [facility] J T VISIT CLINIC OF 15 MINUTES [facility] OFFICE 25702 [facility], OUTPATIEN 0 0 [facility] J T VISIT CLINIC OF 15 MINUTES [facility] OFFICE 35521 [facility], OUTPATIEN 0 0 [facility] J T VISIT CLINIC OF 15 MINUTES [facility] OFFICE 52409 [facility], OUTPATIEN 0 0 [facility] J T VISIT CLINIC OF 15 MINUTES [facility] MARVA - 0 0 [facility] OUTPATIEN [facility] T EMERGENCY 20141 MAR[facility] 0 0 [facility] DEPARTMEN INC T VISIT LOW/MODER SEVERITY [facility] MARVA - 0 0 [facility] OUTPATIEN [facility] T EMERGENCY 52399 FRANKY TOUSSAINT, 0 0 EMERGENCY [facility] T VISIT HIGH/URGE ASSOCIATE NT S SEVERITY OFFICE 32573 [facility], OUTPATIEN 0 0 [facility] J T VISIT CLINIC OF 15 MINUTES [facility] OFFICE 47980 SHIRIN CARPIO, OUTPATIEN 0 0 GLORIA Sun T VISIT 15 MINUTES [facility] MARVA - 9 9 [facility] OUTPATIEN INC T EMERGENCY 73007 MARVA 9 9 [facility] DEPARTMEN INC T VISIT LOW/MODER SEVERITY EMERGENCY 90895 FRANKY SPARKS, DEPT 9 9 EMERGENCY [facility] VISIT SERVICES O HIGH SEVERITY& ASSOCIATE THREAT S [facility] MARVA - 9 9 [facility] OUTPATIEN INC T OFFICE 62943 SHIRIN CARPIO OUTPATIEN 9 9 GLORIA Sun T NEW 30 MINUTES EMERGENCY 25052 MARVA 9 9 [facility] DEPARTMEN INC T VISIT LIMITED/M INOR PROB EMERGENCY 36269 FRANKY TOUSSAINT, 9 9 EMERGENCY [facility] T VISIT MODERATE ASSOCIATE SEVERITY S HOSPITAL MARVA - 9 9 [facility] OUTPATIEN INC T EMERGENCY 54381 FRANKY TOUSSAINT, 9 9 EMERGENCY [facility] T VISIT HIGH/URGE ASSOCIATE NT S SEVERITY EMERGENCY 10500 MARVA 9 9 [facility] DEPARTMEN INC T VISIT MODERATE SEVERITY HOSPITAL MARVA - 9 9 [facility] OUTPATIEN INC T HOSPITAL MARVA [facility] 9 9 [facility] OUTPATIEN INC T
--- OUTSIDE RECORDS SUMMARY | 2017-08-28 20:29 | External Medical Summary Rpt | CCD ---
Author Author , SHAYY LUCAS Address Unknown Phone Care Team Providers Care Body And Fender Mechanic Name Role Phone ARNTRAVIS NAHID, ARNOLD Unavailable Unavailable NAHID ARNOLD NAHID, ARNOLD Unavailable Unavailable NAHID SHIRIN, GLORIA W, Unavailable Unavailable SHIRIN, GLORIA W ENEIDA VARGHESE Unavailable Unavailable ENEIDA ARDON Unavailable Unavailable BRO BHABHRA, BHABHRA Unavailable Unavailable WHITTAKER ALL, WHITTAKER ALL Unavailable Unavailable [facility] Unavailable Unavailable INC, [facility] AMELIA MATTEOAMELIA MATTEO Unavailable Unavailable AMELIA [...] [facility] OF Unavailable Unavailable [facility] [place] JAMARCUS PAT, JAMARCUS PAT Unavailable Unavailable YOEL, YOEL Unavailable Unavailable YOEL BLAIR, Unavailable Unavailable YOEL BLAIR YOEL BLAIR, Unavailable Unavailable YOEL BLAIR YOEL, CAROLA, Unavailable Unavailable YOEL, CAROLA [facility] # [id number], Unavailable Unavailable [facility] # [id number] LASHAY VISION, Unavailable Unavailable [facility] SHARON HERRERA Unavailable Unavailable YESICA OCTAVIO, Unavailable Unavailable YESICA OCTAVIO YESICA OCTAVIO, Unavailable Unavailable YESICA OCTAVIO YAMILET, WOODARD Unavailable Unavailable RICO KENYETTA, RICO Unavailable Unavailable KENYETTA BREANA, VIKTORIA S, Unavailable Unavailable VIKTORIA TOUSSAINT HARPEL OCTAVIO, HARPEL Unavailable Unavailable OCTAVIO [facility] Unavailable Unavailable INC, [facility] Unavailable Unavailable HOSPITAL P, [facility] P MCPHERSON HARRIS, MCPHERSON HARRIS Unavailable Unavailable [facility] Unavailable Unavailable P[facility], [facility], Unavailable Unavailable [facility] ROXANNE OLIVEIRA Unavailable Unavailable [facility], [facility] Unavailable Unavailable [facility], [facility] ENRIQUE WINSOME Unavailable Unavailable HOLD[facility], LAB [...] Unavailable Unavailable DANIELLA FERNANDEZ [facility], [facility], [facility] Unavailable Unavailable LABS, [facility], Unavailable Unavailable PLL[facility], [facility] Unavailable Unavailable LAB, [facility] LAB KEITH TINSLEY, Unavailable Unavailable KEITH TINSLEY [facility] Unavailable Unavailable [id number] # [id number], [facility] [id number] # [id number] KEKE LESTER, Unavailable Unavailable KEKE LESTER SHUMDMITRI WINDY, Unavailable Unavailable SHUMDMITRI WINDY SOKAN, ITZEL O, Unavailable Unavailable SOKAN, ITZEL O SOTINGEANU LUZ MARIA, Unavailable Unavailable SOTINGEANU LUZ MARIA CRISTI JR, CRISTI Unavailable Unavailable ALONZO BURCH Unavailable Unavailable ALONZO MELENDEZ Unavailable Unavailable [facility], Unavailable Unavailable [facility] Unavailable Unavailable LARAMIE PHY, [facility] WAHAB RIF, WAHAB RIF Unavailable Unavailable [facility] Unavailable Unavailable #, [facility] # [facility] Unavailable Unavailable #[id number], [facility]591 [facility] # Unavailable Unavailable [id number], [facility] [id number] WEHRMAN III LISA, Unavailable Unavailable WEHRMAN III LISA WEMAN III LISA, Unavailable Unavailable WEHRMAN III LISA MATTA CHR, SIGRID Unavailable Unavailable [facility] Unavailable Unavailable OF [place], [facility] Purpose Continuity of Care Document - 05-16-2009 through 2016 Problems Code Diagnosis DOS Provider Status J208 ACUTE 07-23-2017 [facility] BRONCHITIS MEDICINE DUE TO [facility] OTHER SPEC LLC ORGANISMS D351 BENIGN 04-28-2017 [facility] NEOPLASM OF OF [place] PARATHYROID PHY GLAND E210 PRIMARY 04-28-2017 [facility] HYPERPARATH OF YROIDISM [place] PHY E8352 HYPERCALCEM 04-28-2017 [facility] [place] PHY Z021 ENCOUNTER 04-18-2017 [facility] PRE-EMPLOYM INC ENT EXAMINATION E039 HYPOTHYROID 04-11-2017 [facility] ISM OF UNSPECIFIED [place] PHY E213 HYPERPARATH 04-11-2017 [facility] YROIDISM OF UNSPECIFIED [place] PHY E8350 UNSPECIFIED 04-11-2017 [facility] DISORDER OF OF CALCIUM [place] METABOLISM PHY I78491 ENCOUNTER 01-24-2017 [facility] FOR OSTEOPOROSI S J069 ACUTE UPPER 01-17-2017 [facility] RESPIRATORY INC INFECTION UNSPECIFIED R0989 OTH SPEC SX 01-17-2017 [facility] THE IMAGING ASS CIRC & RESP SYS Z720 TOBACCO USE 01-17-2017 [facility] INC M15588 ACQUIRED 12-01-2016 [facility] ABSENCE OF OF BOTH CERVIX [place] AND UTERUS PHY L96156 ACQUIRED 12-01-2016 [facility] ABSENCE OF OF OVARIES [place] UNILATERAL PHY Z9079 ACQUIRED 12-01-2016 [facility] ABSENCE OF OF OTHER [place] GENITAL PHY ORGANS D234 OTHER 11-11-2016 [facility] NEOPLASM OF SKIN OF SCALP AND NECK D492 NEOPLASM OF 11-10-2016 [facility] UNS ANESTH OF BEHAVIOR THE BLUE BONE SOFT TISSUE & SKIN M40720 ENCOUNTER 11-05-2016 [facility] P AL CARIOVASCUL AR EXAM I83209 ENCOUNTER 11-05-2016 [facility] LABORATORY EXAM L723 SEBACEOUS 09-09-2016 ARNOLD NAHID CYST E349 ENDOCRINE 06-04-2016 [facility] DISORDER OF UNSPECIFIED [place]IE PHY M797 FIBROMYALGI 06-04-2016 [facility] A OF [place] PHY R0602 SHORTNESS 06-04-2016 [facility] OF BREATH OF [place] PHY R5382 CHRONIC 06-04-2016 [facility] FATIGUE OF UNSPECIFIED [place] PHY Z8489 FAMILY 06-04-2016 [facility] HISTORY OF OF OTHER [place] SPECIFIED Y CONDITIONS C58617 CUTANEOUS 05-31-2016 [facility] ABSCESS OF [facility] LEFT LOWER INC LIMB L0390 CELLULITIS 05-31-2016 [facility]NSPECIFIED [facility]IANS, PLLC M069 RHEUMATOID 03-31-2016 [facility] ARTHRITIS [facility] UNSPECIFIED I24921 PRIMARY 03-31-2016 [facility] OSTEOARTHRI OF TIS LEFT [place] HAND PHY I22292 PRIMARY 03-31-2016 [facility] OSTEOARTHRI OF TIS LEFT [place] ANKLE AND Y FOOT M2550 PAIN IN 03-31-2016 [facility] UNSPECIFIED OF JOINT [place] PHY M7732 CALCANEAL 03-31-2016 [facility] SPUR LEFT HOSPITAL FOOT M791 MYALGIA 03-31-2016 [facility] N29858 PAIN IN 03-31-2016 [facility] RIGHT HAND OF [place] PHY F29194 PAIN IN 03-31-2016 [facility] RIGHT FOOT OF [place] PHY N6011 DIFFUSE 03-31-2016 [facility] CYSTIC OF MASTOPATHY LAR[place]IE OF RIGHT PHY BREAST N644 MASTODYNIA 03-31-2016 [facility] PHY O039 COMPLETE OR 03-31-2016 [facility] UNS SPONT OF LARAMIE W/O PHY COMPLICATIO N R768 OTH SPEC 03-31-2016 [facility] ABNORMAL OF IMMUNOLOGIC [place]IE AL FIND IN PHY SERUM 7228 PAIN IN 07-15-2015 [facility] SOFT [facility]ICAL TISSUES OF IMAGING ASS LIMB 7823 EDEMA 07-15-2015 [facility] V909 RETAINED 07-15-2015 [facility]IGN [facility] UNSPECIFIED MATERIAL 6262 EXCESSIVE 05-22-2015 [facility] OR FREQUENT PHYSICIANS GROUP MENSTRUATIO N 2181 INTRAMURAL 01-13-2015 [facility] LEIOMYOMA PHYSICIANS OF UTERUS GROUP 2189 LEIOMYOMA 01-13-2015 [facility] OF UTERUS, [facility] UNSPECIFIED INC 220 BENIGN 01-13-2015 [facility], NEOPLASM OF LLC OVARY 2331 CARCINOMA 01-13-2015 [facility], IN SITU OF LLC CERVIX UTERI 6212 HYPERTROPHY 01-13-2015 [facility] OF UTERUS PHYSICIANS GROUP 6259 UNSPEC 01-13-2015 [facility] SYMPTOM PHYSICIANS ASSOC GROUP W/FEMALE GENITAL ORGANS [...] 07-24-2014 [facility] KATELYN LUTEUM CYST OR HEMATOMA 15597 PAP SMER 05-08-2014 [facility] KATELYN CERV W/LW GRADE SQUAMOUS INTRAEPITH LES V7231 ROUTINE 04-09-2014 CHANGMINISTERIO [facility] GYNECOLOGIC AL EXAMINATION 4650 ACUTE 03-05-2014 [facility] LARYNGOPHAR PHYSICIANS YNGITIS GROUP 466.0 466.0 ACUTE 11-02-2013 [place] BRONCHITIS [facility] 4660 ACUTE 11-02-2013 [facility] BRONCHITIS [facility] INC 490 BRONCHITIS 11-02-2013 MONIQUE BRO NOT SPECIFIED ACUTE OR CHRONIC 7862 COUGH 11-02-2013 YOEL BLAIR 2724 OTHER AND 07-27-2013 [facility] UNSPECIFIED PHYSICIANS LA HYPERLIPIDE JUAN MANUEL 4619 ACUTE 07-27-2013 ARNOLD NAHID SINUSITIS, UNSPECIFIED 16982 PAIN IN 07-27-2013 LAB ENRIQUE JOINT, SITE [facility] UNSPECIFIED 7291 UNSPECIFIED 07-27-2013 ARNTRAVIS WH[facility] MYALGIA AND MYOSITIS 72174 OTHER 07-27-2013 LAB ENRIQUE MALAISE AND WINSOME FATIGUE [facility] 92129 UNSPECIFIED 06-19-2013 [facility] ABNORMAL [facility] MAMMOGRAM INC V7612 OTHER 12-19-2012 [facility] SCREENING [facility] MAMMOGRAM INC V0481 NEED 09-14-2012 AMELIA FELIPE PROPHYLACTI C VACCINATION &INOCULATIO N FLU 89526 SWELLING OF 07-09-2012 WEHRMAN III LIMB LISA 9174 FOOT&TOE 07-09-2012 [facility] INSECT BITE [facility] INC NONVENOMOUS W/O MENTION INF 6869 UNSPEC 05-02-2012 SHIRIN [facility] LOCAL INFECTION SKIN&SUBCUT ANEOUS TISSUE 83717 PAIN IN 03-03-2012 [facility] JOINT, MEDICAL LOWER LEG IMAGING ASS 09503 PAIN IN 03-03-2012 [facility] JOINT, MEDICAL ANKLE AND IMAGING ASS FOOT 8260 CLOSED 03-03-2012 [facility] FRACTURE OF MEDICAL ONE OR IMAGING ASS MORE PHALANGES OF FOOT 64566 VARIANTS 02-29-2012 SHIRIN [facility] MIGRAINE NEC INTRACT MIGRAINE W/O SM 7242 LUMBAGO 02-02-2012 YESICA OCTAVIO 84912 UNSPEC 11-03-2011 SHIRIN [facility] STAPHYLOCOC CUS INFECTION CCE & UNS SITE 6829 CELLULITIS 10-16-2011 [facility] AND ABSCESS [facility] OF INC UNSPECIFIED SITE 2165 BENIGN 07-27-2011 [facility] NEOPLASM OF JAI & SKIN OF DUBILIER TRUNK EXCEPT SCROTUM 2166 ANTWON 07-27-2011 C JAYLENE NEOPLASM [place] SKIN UPPER MD PSC LIMB INCLUDING SHOULDER 3670 HYPERMETROP 07-27-2011 L[facility] IA VISION 78372 OTHER 07-27-2011 [facility] SEBORRHEIC JAI & KERATOSIS DUBILIER 80846 OBESITY, 05-03-2011 SHIRIN [facility]IT[place] UNSPECIFIED 6218 OTHER 03-29-2011 [facility] SPECIFIED JAI & DISORDERS DUBILIER OF UTERUS NEC 6253 DYSMENORRHE 03-10-2011 [facility] [place] 01939 OSTEOARTHRO 08-29-2010 SHIRIN WHITFIELD S INVLV MX SITES BUT NOT SPEC GEN V242 ROUTINE 07-23-2010 [facility] [place] V252 STERILIZATI 07-06-2010 [facility] [place] V502 ROUTINE OR 05-28-2010 [facility] RITUAL PHYSICIAN CIRCUMCISIO GROUP [facility] N 87161 ERLY ONSET 05-27-2010 [facility] W/WO CLINIC OF MENTION [place] HAIDER [facility] COND 650 NORMAL 05-27-2010 [facility] DELIVERY HEALTH CLINIC OF [place] [facility] V270 OUTCOME OF 05-27-2010 [facility] DELIVERY HEALTH SINGLE CLINIC OF LIVEBORN [place] [facility] 29772 THREATENED 05-26-2010 [facility] PREMATURE PHYSICIAN LABOR GROUP [facility] ANTEPARTUM V221 SUPERVISION 05-26-2010 [facility] OF OTHER HEALTH NORMAL CLINIC OF [place] [facility] 69287 OTHER 05-10-2010 [facility] THREATENED PHYSICIAN LABOR, GROUP PCC ANTEPARTUM 20771 EXCESS 05-06-2010 [facility] GROWTH CLINIC OF AFFECT MGMT [place] MOTH [facility] ANTPR 45267 DECR 05-01-2010 [facility] MOVMNTS HEALTH MGMT MOTH CLINIC OF ANTPR [place] COND/COMP [facility] 5990 URINARY 04-28-2010 COMBINED TRACT PHYSICIANS INFECTION LAB SITE NOT SPECIFIED V283 ENCOUNTER 02-05-2010 [facility]EN'S ROUTINE HEALTH SCREEN CLINIC OF MALFORMATIO [place] N [facility] ULTRASONIC V220 SUPERVISION 01-20-2010 [facility] OF NORMAL [facility] FIRST INC 54164 OTHER 01-13-2010 [facility] SPECIFED [facility] COMPLICATIO INC N ANTEPARTUM 81030 OT CURRENT 01-13-2010 [facility] MAT STEVE EMERGENCY CLASSIFIABL SERVICES E [facility]W [facility] 7245 UNSPECIFIED 01-13-2010 [facility] BACKACHE EMERGENCY SERVICES ASSOCIATES 7840 HEADACHE 01-13-2010 [facility] PHYSICIAN GROUP PCC V222 01-13-2010 [facility], [facility] INCIDENTAL INC V745 SCREENING 11-24-2009 MOLECULAR EXAMINATION PATHOLOGY FOR LAB NETWORK VENEREAL INC DISEASE 56323 THREATENED 10-28-2009 [facility] , [facility] ANTEPARTUM [facility] 07441 10-28-2009 [facility]EN'[facility] COMP RECUR HEALTH PREG LOSS CLINIC OF ANTPRBRENDEN [place] COND/COMP [facility] 86233 ABDOMINAL 10-21-2009 [facility] PAIN, EMERGENCY UNSPECIFIED SERVICES SITE ASSOC[facility]ATES 14705 ABDOMINAL 10-21-2009 [facility] PAIN, [facility] GENERALIZED INC 52552 STOMATITIS 08-04-2009 [facility] AND EMERGENCY MUCOSITIS SERVICES UNSPECIFIED ASSOCIATES 5060 BRONCHITIS& 07-23-2009 [facility] PNEUMONITIS MEDICAL DUE TO IMAGING FUMES&VAPOR ASSOCIATES S 9879 TOXIC 07-23-2009 [facility] EFFECT OF EMERGENCY UNSPECIFIED SERVICES GAS FUME [facility]OC[facility]ATES OR VAPOR E8490 PLACE OF 07-23-2009 [facility] MEDICAL HOME IMAGING ASSOC[facility]ATES E8912 OTH 07-23-2009 [place] SMOKE&FUMES MEDICAL CONFLAGRAT IMAGING OTH&UNS ASSOCIATES BLDG/STRCT [...] ia de te s n re d AR 00 09 10 10 5 00 KR [...] 34 1- 3- 00 00 UC ve AR 59 20 20 86 [place] ED 31 [...] 34 6- 3- 00 83 LD ve AR 59 20 20 AI ED 31 11 [...] 1 PH C CE AR TA MA KS CY NO # PH EN 10 05 [...] 0 60 30 CL 23 CL Ac AR 74 -0 -0 .0 IN 78 AR [...] 6- 6- 00 PH 58 LD ve AR 00 20 20 AR ED 10 11 [...] MC 43 G 7 TA BL ET AR 00 12 12 2 60 30 RI [...] 8- 8- 00 PH 72 LD ve AR 00 20 20 AR ED 10 10 [...] 4- 4- 00 PH 20 KE ve KS 20 20 20 AR DE 81 10 [...] RE MA K CY J LL C AR 65 12 06 11 30 30 WA [...] G TA 10 BL 05 ET 91 AR 65 12 05 11 30 30 WA [...] MC G #5 TA 91 BL ET AR 65 12 12 00 30 30 WA 70 CL Ac EN 16 -2 -3 .0 L- 51 AR ti AT 20 2- 1- 00 MA 24 KE ve AL 66 20 20 RT 4 [address] 0 PH RE US AR K MA J TA CY BL ET #5 91 AR 68 12 12 00 20 5 WA [...] 3- 3- 00 MA 55 LD ve AR 59 20 20 RT 0 ED 31 09 09 RI NI 5 PH CH SO AR AR LO MA D NE CY W 4 #5 MG 91 DO SE PK ME 00 11 11 00 21 6 WA 70 AR Ac TH 60 -1 -1 .0 L- 45 NO ti YL 34 3- 9- 00 MA 55 LD ve AR 59 20 20 RT 0 ED 31 [...] [address] 09 09 09 KS 7 PH CH 12 AR AE .5 MA L CY S MG /5 #[address] LI 00 09 10 00 12 5 WA 70 GA Ac DO 60 -2 -2 0. L- 39 IN ti CA 31 8- 2- 00 MA 80 EY ve IN 39 20 20 0 RT 9 E 36 09 09 KS 2% 4 PH CH AR AE MA L SC CY S OU S #[address] 00 09 10 00 6. 5 WA 70 GA Ac 59 -2 -2 00 L- 39 IN ti 12 8- 2- 0 MA 80 EY ve 23 20 20 RT 9 50 09 09 KS 1 PH CH AR AE MA L CY S #5 91 FL 00 09 10 00 3. 6 WA 70 GA Ac UC 17 -2 -0 00 L- 39 IN ti ON 25 8- 8- 0 MA 66 EY ve AZ 41 20 20 RT 0 OL 14 09 09 KS E 6 PH CH 10 AR AE 0 MA L MG CY S TA #5 BL 91 ET ME 00 09 09 00 21 6 WA 73 SA Ac TH 60 -1 -2 .0 L- 12 DE ti YL 34 6- 4- 00 MA 26 K ve AR 59 20 20 RT 5 MO ED [...] Procedure DOS Code Location Performer Comment ANES 09468 [facility] ESOPH 7 Y OF THYRD [place] LARYNX I PHY TRACH & LYMPH NECK 1YR PARATHYRO 35759 [facility] IDE[facility]/ 7 Y OF JR EXPLORATI [place] ON I PHY PARATHYRO IDS PATH 50045 [facility] NATALIO CONSLTJ 7 Y OF SURG [facility] BL[facility] PHY FROZEN SCTJ 1 SPEC IMHISTOCH 18537 [facility] EM/CYTCHM 7 Y OF 1ST [facility] [place] [address] [facility] ROXANNE SURG 7 Y OF PATHOLOGY [place] I PHY GROSS&EMMA ROSCOPIC EXAM COLLECTIO 29755 [facility] N VENOUS 7 [facility] BLOOD INC INC VENIPUNCT URE CALCIUM 78744 [facility] TOTAL 7 [place] [address] [facility] PARATHORM 7 [facility] ONE INC INC US SOFT 14681 JEAN-CLAUDE COLIN TISSUE 7 Y OF JR HEAD & [place] N[place]K [place] [address] [facility] FREE 7 [facility] [place] [address] [facility] D[facility] THYROID 7 [facility] STIMULATI INC INC NG HORMONE TSH COLLECTIO 30008 [facility] N VENOUS 7 [facility] BLOOD INC INC VENIPUNCT URE CREATININ 91343 [facility] Fisher OTHER 7 [facility] SOURCE INC INC CALCIUM 79802 [facility] URINE 7 [facility] QUANTITAT INC INC REYES TIMED SPECIMEN 25 40467 [facility] HYDROXY 7 [facility] INCLUDES [place] [address] [facility] PARATHORM 7 [facility] ONE INC INC COLLECTIO 03554 [facility] D[facility] N VENOUS 7 [facility] BLOOD INC INC VENIPUNCT URE BASIC 47628 [facility] METABOLIC 7 [facility] PANEL INC INC CALCIUM TOTAL MYOCARDIA 59363 [facility] L SPECT 7 MEDICAL SINGLE IMAGING STUDY AT ASS REST OR STRESS DXA BONE 97134 [facility] DENSITY 7 MEDICAL STUDY 1/> IMAGING SITES ASS AXIAL SKEL TECHNETIU A9500 [facility] Virk TC-99M 7 MEM HOS[facility] SESTAMIBI INC INC DX PER STUDY DOSE RADIOLOGI 14534 [facility] Y[facility] C EXAM 7 MEDICAL CHEST 2 IMAGING VIEWS ASS FRONTAL&L ATERAL COLLECTIO 15875 [facility] N VENOUS 7 [facility] BLOOD INC INC VENIPUNCT URE BASIC 57273 [facility] D[facility] METABOLIC 7 [facility] PANEL INC INC CALCIUM TOTAL CREATININ 28220 [facility] Fisher OTHER 7 [facility] SOURCE INC INC VOLUME 42932 [facility] D[facility] MEASUREME 7 [facility] NT TIMED INC INC COLLECTIO N EACH CALCIUM 61700 [facility] URINE 7 [facility] QUANTITAT INC INC REYES TIMED SPECIMEN HOSPITAL G0463 [facility] 7 Y Y T CLIN HOSPITAL HOSPITAL VISIT ASSESS & MGMT PT ADJT TIS 75114 [facility] TRNS/REAR 7 [facility] GMT INC INC F/C/C/M/N /A/G/H/F 10SQCM/< [place] [address] [facility], [facility] SURG 7 [facility] PATHOLOGY GROSS&EMMA ROSCOPIC EXAM ANES 00188 [facility] INTEG 7 ANESTH [facility] & OF THE NRV HEAD BLUE NECK&POST ERIOR TRUNK COLLECTIO 71149 [facility] D[facility] N VENOUS 6 [facility] BLOOD INC INC VENIPUNCT URE BASIC 36612 [facility] METABOLIC 6 [facility] PANEL INC INC CALCIUM TOTAL ECG 73681 [facility] VEE JR ROUTINE 6 [facility] W/LEAST P 12 LDS I&R ONLY BLOOD 05212 [facility] COUNT 6 [facility] COMPLETE INC INC AUTO&AUTO DIFRNTL WBC ECG 10475 [facility] ROUTINE 6 [facility] ECG INC INC W/LEAST 12 LDS TRCG ONLY W/O I&R HOSPITAL G0463 [facility] 6 Y Y T [facility] HOSPITAL VISIT ASSESS & MGMT PT US SOFT 30184 [facility] WHITTAKER ALL TISSUE 6 MEDICAL HEAD & IMAGING NECK REAL ASS TIME IMGE DOCM DIAGNOSTI G0204 [facility] MCALLEN RIF C 6 Y OF MAMMOGRAP [place] HY INCL I PHY CAD WHEN PERF; BILAT RADEX 33771 JEAN-CLAUDE HANKINS FOOT 6 Y OF WINDY COMPLETE [place] MINIMUM 3 I PHY VIEWS RADEX 14946 [facility] 6 Y OF WINDY MINIMUM 3 [place] VIEWS I PHY US BREAST 19037 [facility] UNI REAL 6 Y OF TIME [place] WITH I PHY IMAGE LIMITED RADEX 90845 [place] Y[facility] HAND 5 MEDICAL BLAIR MINIMUM 3 IMAGING VIEWS ASS RADEX 26530 SUZIE TALLEYUTCHER FOOT 5 MEDICAL BLAIR COMPLETE IMAGING MINIMUM 3 [facility] G0378 [facility] D[facility] OBSERVATI 5 [facility] ON INC INC SERVICE PER HOUR COLLECTIO 83528 [facility] D[facility] N VENOUS 5 [facility] BLOOD INC INC VENIPUNCT URE BASIC 57704 [facility] METABOLIC 5 [facility] PANEL INC INC CALCIUM TOTAL BLOOD 52168 [facility] COUNT 5 [facility] COMPLETE INC INC AUTO&AUTO DIFRNTL WBC BLOOD 06083 [facility] COUNT 5 [facility] COMPLETE INC INC AUTO&AUTO DIFRNTL WBC BLOOD 83038 [facility] COUNT 5 [facility] HEMOGLOBI INC INC N INJECTION J0131 [facility] 5 [facility] ACETAMINO INC INC PHEN 10 MG URNLS DIP 32651 [facility] 5 [facility] STICK/TAB INC INC LET REAGENT AUTO MICROSCOP Y URINE 52459 [facility] 5 [facility] TEST INC INC VISUAL COLOR CMPRSN METHS CULTURE 87783 [facility] BACTERIAL 5 [facility] INC INC QUANTTATI VE COLONY COUNT URINE LEVEL 12221 [facility], CHANG SURG 5 [facility] NAHID PATHOLOGY GROSS&EMMA ROSCOPIC EXAM BASIC 62165 [facility] METABOLIC 5 [facility] PANEL INC INC CALCIUM TOTAL COLLECTIO 43973 [facility] N VENOUS 5 [facility] BLOOD INC [place] [address] [facility], CHANG SURG 5 [facility] NAHID PATHOLOGY GROSS&EMMA ROSCOPIC EXAM INJECTION J2405 [facility] 5 [facility] ONDANSETR INC INC ON HCL PER 1 MG ANESTHESI 79300 JASON ROSADO A VAGINAL 5 ANESTH CARLA OF THE HYSTERECT BLUE YURI INCL BIOPSY LAPS 16226 [facility] W/VAG 5 [facility] HYSTERECT INC INC 250 GM/&RMVL TUBE&/OVA MARLENY BLOOD 63424 [facility] COUNT 5 [facility] HEMATOCRI INC INC T HOSPITAL G0378 [facility] OBSERVATI 5 [facility] [place] [address] [facility] ELIAN TRANSVAGI 5 PHYS[place] [address] [facility] D[facility] THYROID 5 [facility] H[facility]OS[facility] STIMULATI INC INC NG HORMONE TSH COLLECTIO 72190 [facility] D[facility] N VENOUS 5 [facility] [place] [address] [facility], JAMARCUS PAT SURG 5 [facility] PATHOLOGY GROSS&EMMA ROSCOPIC EXAM COLPOSCOP 36715 [facility] PLUMMER Y CERVIX 5 PHYSICIAN KATELYN ENDOCERVI S GROUP [place] CURETTAGE CYTP C/V 51783 [facility], PICKLESIM AUTO THIN 5 [facility] ER JR LAUREANO [place] [address] PLUMMER PLUMMER TRANSVAGI 4 KATELYN KATELYN NAL COLPOSCOP 51073 PLUMMER PLUMMER Y CERVIX 4 KATELYN KATELYN VAG ELTRD CONIZATIO N CERVIX URINE 88308 PLUMMER PLUMMER 4 KATELYN KATELYN TEST VISUAL [place] [address] [facility], CHANG SURG 4 [facility] PATH[facility] GROSS&[place] [address] [facility], FRANKY SURG 4 [facility] GROSS&EMMA ROSCOPIC EXAM COLPOSCOP 72225 PLUMMER PLUMMER Y CERVIX 4 KATELYN KATELYN BX CERVIX & [place] [address] PLUMMER PLUMMER TRANSVAGI 4 KATELYN KATELYN NAL CYTP C/V 74262 CHANG CHANG AUTO THIN 4 NAHID NAHID LYR PREPJ SCR MNL RESCR PHYS CYTP 10821 [facility] CERVICAL/ 4 NAHID NAHID VAGINAL REQ INTERP PHYSICIAN IAADIADOO 60754 [facility] 4 PHYSICIAN PHYSICIAN STREPTOCO S GROUP S GROUP CCUS GROUP A RADIOLOGI 95150 [facility] C EXAM 3 [facility] CHEST 2 INC INC VIEWS FRONTAL&L ATERAL IAADI 88911 [facility] INFLUENZA 3 [facility] B VIRUS INC INC IAADI 61330 [facility] INFFLUENZ 3 [facility] A A VIRUS INC INC SEDIMENTA 60368 COMBINED COMBINED TION RATE 3 PHYSICIAN PHYSICIAN RBC S LA S LA NON-AUTOM ATED 25 74857 LAB ENRIQUE LAB ENRIQUE HYDROXY 3 WINSOME WINSOME INCLUDES HOLDINGS [place] [address] COMBINED COMBINED BLOOD/URI 3 PHYSICIAN PHYSICIAN C ACID S LA S LA LIPID 47308 COMBINED COMBINED PANEL 3 PHYSICIAN PHYSICIAN S LA S LA THYROID 77672 COMBINED COMBINED HORM 3 PHYSICIAN PHYSICIAN UPTK/THYR S LA S LA OID HORMONE BINDING RATIO GENERAL 99849 COMBINED COMBINED HEALTH 3 PHYSICIAN PHYSICIAN PANEL S LA S LA ANTINUCLE 30056 LAB ENRIQUE LAB ENRIQUE AR 3 WINSOME WINSOME ANTIBODIE HOLDINGS HOLDINGS S CROW RHEUMATOI 70847 COMBINED COMBINED D FACTOR 3 PHYSICIAN PHYSICIAN QUALITATI S LA S LA VE DIAGNOSTI G0206 YOEL YOEL C 3 BLAIR BLAIR MAMMOGRAP HY INCL CAD WHEN PERF; UNI SCREENING G0202 [facility] MAMMOGRAP INC INC HY MAXIM INCL CAD WHEN PERFORMD 65838 [facility] AIDED 3 [facility] DETECTION INC INC SCREENING MAMMOGRAP HY IM ADM 44681 AMELIA FELIPE PRQ ID 2 SUBQ/IM NJXS 1 VACCINE IIV3 09172 AMELIA FELIPE VACCINE 2 SPLIT VIRUS 0.5 ML DOSAGE IM USE RADEX 51593 [facility] ANKLE 2 [facility] COMPLETE INC INC MINIMUM 3 VIEWS RADEX 43438 [facility] FOOT 2 [facility] COMPLETE INC INC MINIMUM 3 VIEWS RADIOLOGI 99614 [facility] C 2 [facility] EXAMINATI INC INC ON KNEE 3 VIEWS NRV CNDJ 41530 YESICA YESICA AMPLT&LAT 2 OCTAVIO OCTAVIO ENCY EA NRV MOTOR W/F-WAVE STD NRV CNDJ 14516 YESICA YESICA AMPLITUDE 2 OCTAVIO OCTAVIO & LATENCY EACH NERVE SENSORY H-REFLEX 89234 YESICA YESICA AMPLT&LAT 2 OCTAVIO OCTAVIO ENCY GASTRCN/S OLEUS MUSC NEEDLE 07998 YESICA YESICA EMG EA 2 OCTAVIO OCTAVIO EXTREMTY W/PARASPI NL AREA COMPLETE SUSCEPTIB 46787 [facility] [facility] LTY STDY [facility] ANTIMICRB INC INC IAL MICRO/AGA R DILUTJ CUL BACT 91419 [facility] XCPT 1 [facility] URINE INC INC BLOOD/STO OL AEROBIC ISOL CUL BACT 13743 [facility] AEROBIC 1 [facility] ADDL INC INC [place] [address] CHIPPS CHANG SURG 1 JAI & NAHID PATHOLOGY DUBILIER GROSS&EMMA ROSCOPIC EXAM EXC B9 29757 C JAYLENE SCHULSTAD LESION 1 SCHULSTAD TREVON KARMEN JAKCSON MD PSC SK TG T/A/L 1.1-2.0 CM OPHTH 92290 LASHAY [facility] 1 VISION XM&EVAL COMPRE NEW PT 1/> VST EXC B9 76054 C JAYLENE SCHULSTAD LESION 1 SCHULSTAD TREVON KARMEN JACKSON MD PSC SK TG T/A/L 0.5 CM/< HYSTEROSC 6812 [facility] OPY 1 [facility] INC INC ENDOMETRI 6823 [facility] AL 1 [facility] [place] [address] CHIPPS CHANG SURG 1 JAI & NAHID PATHOLOGY DUBILIER GROSS&EMMA ROSCOPIC EXAM ANES 76460 [facility] HYSTEROSC 1 ANESTH CARLA OPY&/HYST OF THE EROSALPIN BLUE GOGRAPHY W/BX HYSTEROSC 87367 [facility] OPY 1 [facility] [address] [facility] INFUSION 1 [facility] THERAPY INC INC PROPHYLAX IS/DX EA HOUR THERAPEUT 75438 [facility] IC 1 [facility] INJECTION INC INC IV PUSH EACH NEW DRUG BLOOD 10905 [facility] COUNT 1 [facility] COMPLETE INC INC AUTO&AUTO DIFRNTL WBC GONADOTRO 29987 [facility] PIN 1 [facility] CHORIONIC INC INC QUALITATI VE BASIC 76927 MARVA [facility] METABOLIC 1 [facility] [place] [address] [facility] TRANSVAGI 1 [facility] KAT[facility]N [facility] CYTP 79697 UNA HEART SLCTV 1 LABORATOR LABORATOR CELL IES INC IES INC ENHANCEME NT INTERPJ XCPT C/[place] [address] [facility] THYROID 0 [facility] STIMULATI INC INC NG HORMONE TSH THYROID 86754 [facility] HORM 0 [facility] UPTK/THYR INC [place] [address] [facility] THYROXINE 0 [facility] TOTAL INC INC CYTP C/V 05805 PATHOLOGY PATHOLOGY AUTO THIN 0 & & LYR CYTOLOGY CYTOLOGY PREPJ SCR LAB LAB MNL RESCR PHYS CYTP 42767 PATHOLOGY PATHOLOGY CERVICAL/ 0 & & VAGINAL CYTOLOGY CYTOLOGY REQ LAB LAB INTERP PHYSICIAN OT BILAT 6629 [facility] ENDO 0 [facility] DESTRUC/O INC INC CCLUSION FALLOP TUBES THERAPEUT 77903 [facility] D[facility] IC 0 [facility] INJECTION [place] [address] [facility] INFUSION 0 [facility] THERAPY/P INC INC ROPHYLAXI S /DX 1ST TO 1 HR BLOOD 25824 [facility] COUNT 0 [facility] COMPLETE INC INC AUTO&[place] [address] [facility] INFUSION 0 [facility] THERAPY INC INC PROPHYLAX IS/DX EA HOUR URINE 12446 MARVA MARVA 0 [facility] TEST INC INC VISUAL COLOR CMPRSN METHS LAPAROSCO 03746 [facility] PY W/PLMT 0 [facility] INC INC OCCLUSION DEVICE OVIDUCTS ANES IPER 80069 [facility] JIM LISA LWR ABD 0 ANESTH W/LAPS OF THE TUBAL BLUE LIGATION/ TRANSECT CIRCUMCIS 57476 [facility] ION 0 PHYSICIAN OCTAVIO W/CLAMP/O GROUP TH DEV PCC W/BLOCK INITIAL 61394 [facility] INPATIENT 0 PHYSICIAN OCTAVIO CONSULT GROUP NEW/ESTAB PCC PT 55 MIN VAGINAL 24292 [facility], DELIVERY 0 [facility] J ONLY CLINIC OF W/POSTPAR CHAR CARE [place] [facility] NEURAXIAL 61810 [facility] ANESTH DANIELLA Aj ANALG/ANE OF THE S PLND BLUEGRASS VAGINAL DELIVERY OTHER 7359 [facility] MANUALLY 0 [facility] ASSISTED INC INC DELIVERY OBSERVATI 19922 [facility] ON/INPATI 0 PHYSICIAN [facility] PCC CARE 55 MINUTES 58755 [facility], NONSTRESS 0 [facility] J TEST CLINIC OF [place] [facility] CUL BACT 36325 COMBINED COMBINED XCPT 0 PHYSICIAN PHYSICIAN URINE S LAB S LAB BLOOD/STO OL AEROBIC ISOL FTL 64989 [facility] FIBRONECT 0 [facility] IN INC INC CERVICOVA G SECRETION S SEMI-DESIREE URNLS DIP 83716 [facility] 0 [facility] STICK/TAB INC INC LET REAGENT AUTO MICROSCOP Y 20986 [facility] NONSTRESS 0 [facility] TEST INC INC OBSERVATI 82555 [facility] ON/INPATI 0 PHYSICIAN [facility] PCC CARE 55 MINUTES DOPPLER 86453 [facility], VELOCIMET 0 [facility] RY CLINIC OF UMBILICAL ARTERY [place] [facility] 52680 [facility], BIOPHYSIC 0 [facility] AL CLINIC OF PROFILE W/O [place] NON-STRES [facility] S TEST[place] PREG 71920 [facility], UTERUS 0 [facility] J REAL TIME CLINIC OF F/U TRNSABDL [place] PER FETUS [facility] CULTURE 28656 [facility] BACTERIAL 0 [facility] INC INC QUANTTATI VE COLONY COUNT URINE URNLS DIP 22665 [facility] 0 [facility] STICK/TAB INC INC LET REAGENT AUTO MICROSCOP Y FTL 85790 MRAVA [facility] FIBRONECT 0 [facility] IN INC INC CERVICOVA G SECRETION S SEMI-DESIREE 98434 [facility], NONSTRESS 0 [facility] J TEST CLINIC OF [facility] G0378 [facility] OBSERVATI 0 [facility] ON INC INC SERVICE PER HOUR OBSERVATI 90052 [facility], ON CARE 0 [facility] J DISCHARGE CLINIC OF [facility] G0378 [facility] OBSERVATI 0 [facility] ON INC INC SERVICE PER HOUR URNLS DIP 55793 [facility] 0 [facility] STICK/TAB INC INC LET REAGENT AUTO MICROSCOP Y INITIAL 63728 [facility], OBSERVATI 0 [facility] J ON CLINIC OF CARE/DAY 30 [place] MINUTES [facility] CULTURE 84185 COMBINED COMBINED BACTERIAL 0 PHYSICIAN PHYSICIAN S LAB S LAB QUANTTATI VE COLONY COUNT URINE FTL 46642 [facility] FIBRONECT 0 [facility] IN INC INC CERVICOVA G SECRETION S SEMI-DESIREE GLUCOSE 55628 [facility], POST 0 [facility] J GLUCOSE CLINIC OF DOSE [place] [facility] GLUCOSE 51632 [facility], TOLERANCE 0 [facility] J TEST GTT CLINIC OF 3 SPECIMENS [facility] 14409 [facility], NONSTRESS 0 [facility] J TEST [facility]IN[facility] OF [facility] 70857 [facility], NONSTRESS 0 [facility] J TEST [facility] OF [facility] 65865 [facility], NONSTRESS 0 [facility] J TEST [facility]IN[facility] OF [place] [facility] CULTURE 18464 [facility] BACTERIAL 0 [facility] INC INC QUANTTATI VE COLONY COUNT URINE FTL 90927 [facility] FIBRONECT 0 [facility] IN INC INC CERVICOVA G SECRETION S SEMI-DESIREE URNLS DIP 96547 [facility] 0 [facility] STICK/TAB INC INC LET REAGENT AUTO MICROSCOP Y OBSERVATI 55516 [facility] ON/INPATI 0 [facility] PCC CARE 55 MINUTES [place] PREG 09274 [facility], UTERUS 0 [facility] J AFTER 1ST CLINIC OF TRIMEST [place] [facility] [address] MARVA TYLERON FREE 0 [facility] [place] [address] [facility] THYROID 0 [facility] STIMULATI INC INC NG HORMONE TSH ALPHA-FET 86914 [facility] OPROTEIN 0 [facility] [place] [address] MAR[facility] T[facility]ER[facility] ESTRIOL 0 [facility] INC INC GONADOTRO 29412 [facility] PIN 0 [facility] CHORIONIC INC INC QUANTITAT REYES OBSERVATI 59263 [facility] ON/INPATI 0 [facility] PCC CARE 55 MINUTES URNLS DIP 53940 [facility] 0 [facility] STICK/TAB INC INC LET REAGENT AUTO MICROSCOP Y 55457 [facility] NONSTRESS 0 [facility] TEST INC INC MOLECULAR 66988 MOLECULAR MOLECULAR DX AMP 0 TARGET PATHOLOGY PATHOLOGY MULTIPLEX LAB LAB EA ADDL NETWORK NETWORK SEQ INC INC MOLEC 25765 MOLECULAR MOLECULAR SEP&ID HI 0 RESOLU PATHOLOGY PATHOLOGY TQ EACH LAB LAB NUCLEIC NETWORK NETWORK ACID PREP INC INC MOLEC 28103 MOLECULAR MOLECULAR ISOL/XTRJ 0 HP PATHOLOGY PATHOLOGY NUCLEIC LAB LAB ACID EA NETWORK NETWORK TYPE INC INC MOLECULAR 91603 MOLECULAR MOLECULAR DX AMP 0 TARGET PATHOLOGY PATHOLOGY MULTIPLEX LAB LAB 1ST 2 NETWORK NETWORK SEQ INC INC MOLECULAR 18008 MOLECULAR MOLECULAR 0 DIAGNOSTI PATHOLOGY PATHOLOGY CS LAB LAB INTERPRET NETWORK NETWORK ATION & INC INC REPORT MUTATION 97860 MOLECULAR MOLECULAR ID 0 ENZYMATIC PATHOLOGY PATHOLOGY LAB LAB LIG/PRIME NETWORK NETWORK R XTN 1 INC INC SGM EA CYTP C/V 38787 PATHOLOGY PATHOLOGY AUTO THIN 0 & & LYR CYTOLOGY CYTOLOGY PREPJ SCR LAB LAB MNL RESCR PHYS IADNA 51522 PATHOLOGY PATHOLOGY CHLAMYDIA 0 & & CYTOLOGY CYTOLOGY TRACHOMAT LAB LAB IS AMPLIFIED PROBE TQ IADNA 95396 PATHOLOGY PATHOLOGY NEISSERIA 0 & & CYTOLOGY CYTOLOGY GONORRHOE LAB LAB [place] P[place] 51319 [facility], UTERUS [address] [facility] REAL TIME CLINIC OF W/IMAGE DCMTN [place] [facility] GONADOTRO 14389 [facility] PIN 9 [facility] CHORIONIC INC INC [place]IT[place] PREG 67814 [facility] UTERUS 9 [facility] REAL TIME INC INC W/IMAGE DCMTN TRANSVAG GONADOTRO 54674 [facility] PIN 9 [facility] CHORIONIC INC INC QUANTITAT REYES URINE 45666 [facility] 9 [facility] TEST INC INC VISUAL COLOR CMPRSN METHS CULTURE 49808 [facility] BACTERIAL 9 [facility] INC INC QUANTTATI VE COLONY COUNT URINE URNLS DIP 34561 [facility] 9 [facility] STICK/TAB INC INC LET REAGENT AUTO MICROSCOP Y PRESSURIZ 22315 [facility] ED/NONPRE 9 [facility] SSURIZED INC INC INHALATIO N TREATMENT URINE 00653 [facility] TEST INC INC VISUAL COLOR CMPRSN METHS RADIOLOGI 10745 [facility] C EXAM 9 [facility] CHEST 2 INC INC VIEWS FRONTAL&L ATERAL Encounters Encounter Start End Date Code Location Performer Type Date OFFICE 09595 COREEN VANEGAS 7 7 MEDICINE T VISIT [place] 15 F [facility] MAR[facility] - 7 7 [facility] OUTPATIEN [facility] OFFICE 93523 [facility] 7 7 Y OF JR T B[facility] 60 [facility] - 7 7 [facility] MARVA - 7 7 [facility] MARVA - 7 7 [facility] MARVA - 7 7 [facility]PATIEN [facility] OFFICE 53382 MARVA OUTPATIEN 7 7 [facility] T VISIT 5 [facility] - 7 7 [facility] MARVA - 7 7 [facility] MARVA - 7 7 [facility]PATI[facility] OFFICE 18718 [facility] 7 Y OF T [facility] - 7 7 [facility] MARVA - 6 6 [facility] OUTPATIEN [facility] T OFFICE 91728 [facility] OUTPAT[facility] 6 6 PHYSICIAN T BANNER 10 S [facility] MINUT[facility] OFFICE 60984 [facility] OUTPATIEN 6 6 NAHID NAHID T VISIT 15 [facility] 6 6 Y [facility] T OFFICE 23810 [facility] OUTPATIEN 6 6 Y OF [place] CHR T VISIT [facility] 25 I [facility] MARVA - 6 6 [facility] OUTPATIEN [facility] EMERGENCY 87497 KAM APONTE 6 6 PHYSICIAN U LUZ MARIA DEPARTMEN S, PLLC T VISIT MODERATE SEVERITY EMERGENCY 80860 MAR[facility] 6 6 [facility] DEPARTMEN INC T VISIT LOW/MODER SEVERITY OFFICE 81805 [facility] CONSULTAT 6 6 Y OF [place] CHR ION [facility] NEW/ESTAB I PHY PATIENT 60 MIN [facility] 6 6 [facility] 53692 [facility] 5 5 PHYSICIAN KENYETTA T VISIT S GROUP 15 MINUTES HOSPITAL MARVA - 5 5 [facility] OUTPATIEN [facility] MARVA - 5 5 [facility] PERIODIC 79654 ELIAN PLUMMER PREVENTIV 4 4 KATELYN KATELYN E MED EST PATIENT 18-39 YRS OFFICE 82177 [facility] 4 4 PHYSICIAN T VISIT S GROUP 15 MINUTES Emergency MOON MONIQUE MD (ER) 3 11:54 3 12:08 [facility] EMERGENCY 33106 [facility] 3 [facility] T VISIT LOW/MODER SEVERITY HOSPITAL MARVA - 3 3 [facility] EMERGENCY 15498 ENEIDA MONIQUE 3 3 [facility] T VISIT MODERATE SEVERITY OFFICE 71410 SHIRIN SHELBYPATIJENNA 3 3 NAHID NAHID T VISIT 15 MINUTES HOSPITAL MARVA - 3 3 [facility] OUTPATIEN [facility] T OFFICE 51779 [facility] 3 3 PHYSICIAN T VISIT S GROUP 15 MINUTES OFFICE 04422 SHIRIN VANEGAS 3 3 NAHID NAHID T VISIT 15 MINUTES HOSPITAL MARVA - 3 3 [facility] OUTPATIEN INC T EMERGENCY 61079 MARVA 2 2 [facility] DEPARTMEN INC T VISIT LOW/MODER SEVERITY EMERGENCY 75858 LIZA DE JESUS 2 2 III LISA III LISA DEPARTMEN T VISIT MODERATE SEVERITY HOSPITAL [facility] - 2 2 [facility] OUTPATIEN INC T OFFICE 08271 SHIRIN VANEGAS 2 2 NAHID NAHID T VISIT 15 MINUTES HOSPITAL MARVA - 2 2 [facility] OUTPATIEN INC T OFFICE 34948 SHIRIN VANEGAS 2 2 NAHID NAHID T VISIT 15 MINUTES OFFICE 74870 SHIRIN VANEGAS 1 1 NAHID NAHID T VISIT 15 MINUTES HOSPITAL MARVA - 1 1 [facility] OUTPATIEN INC T OFFICE 65482 [facility]TA OUTPATIEN 1 1 CHR CHR T NEW 30 MINUTES OFFICE 53307 SHIRIN VANEGAS 1 1 NAHID NAHID T VISIT 15 MINUTES HOSPITAL [facility] - 1 1 [facility] OUTPATIEN INC T HOSPITAL MARVA - 1 1 [facility]PATIEN INC T OFFICE 84672 [facility] OUTPATIEN 1 1 HEALTH KATELYN T VISIT CLINIC OF 15 CRISTINO MINUTES OFFICE 59795 SHIRIN VANEGAS 1 1 NAHID NAHID T VISIT 15 MINUTES HOSPITAL MARVA - 0 0 [facility] OUTPATIEN INC T OFFICE 48212 SHIRIN VANEGAS 0 0 NAHID NAHID T VISIT 15 MINUTES OFFICE 41876 [facility] OUTPATIEN 0 0 HEALTH KATELYN T VISIT CLINIC OF 15 CRISTINO MINUTES OFFICE 62462 SHIRIN VANEGAS 0 0 NAHID NAHID T VISIT 15 MINUTES HOSPITAL AMRVA - 0 0 [facility] OUTPATIEN [facility] OFFICE 18683 [facility] OUTPATIEN 0 0 HEALTH KATELYN T VISIT CLINIC OF 15 CRISTINO [facility] - 0 0 [facility] INPATIENT [facility] OFFICE 55578 [facility], OUTPATIEN 0 0 [facility] J T VISIT CLINIC OF 15 MINUTES [facility] OFFICE 52328 [facility], OUTPATIEN 0 0 [facility] J T VISIT CLINIC OF 15 MINUTES [facility] OFFICE 76350 [facility], OUTPATIEN 0 0 [facility] J T VISIT CLINIC OF 15 MINUTES [facility] MARVA - 0 0 [facility] OUTPATIEN [facility] MARVA - 0 0 [facility] MARVA - 0 0 [facility] OUTPATIEN [facility] OFFICE 48656 [facility], OUTPATIEN 0 0 [facility] J T VISIT CLINIC OF 15 MINUTES [facility] OFFICE 57638 [facility], OUTPATIEN 0 0 [facility] J T VISIT CLINIC OF 15 MINUTES [facility] MARVA - 0 0 [facility] OUTPATIEN [facility] OFFICE 99122 [facility], OUTPATIEN 0 0 [facility] J T VISIT CLINIC OF 15 MINUTES [facility] OFFICE 07471 [facility], OUTPATIEN 0 0 [facility] J T VISIT CLINIC OF 15 MINUTES [facility] OFFICE 28870 [facility], OUTPATIEN 0 0 [facility] J T VISIT CLINIC OF 15 MINUTES [facility] OFFICE 34476 [facility], OUTPATIEN 0 0 [facility] J T VISIT CLINIC OF 15 MINUTES [facility] MARVA - 0 0 [facility] OUTPATIEN [facility] T OFFICE 98086 [facility], OUTPATIEN 0 0 [facility] J T VISIT CLINIC OF 15 MINUTES [facility] MARVA - 0 0 [facility] OUTPATIEN [facility] T OFFICE 56775 [facility], OUTPATIEN 0 0 [facility] J T VISIT CLINIC OF 15 MINUTES [facility] OFFICE 13900 [facility], OUTPATIEN 0 0 [facility] J T VISIT CLINIC OF 15 MINUTES [facility] OFFICE 11246 [facility], OUTPATIEN 0 0 [facility] J T VISIT CLINIC OF 15 MINUTES [facility] OFFICE 74501 [facility], OUTPATIEN 0 0 [facility] J T VISIT CLINIC OF 15 MINUTES [facility] MARVA - 0 0 [facility] OUTPATIEN [facility] T EMERGENCY 09575 MARVA 0 0 [facility] DEPARTMEN INC T VISIT LOW/MODER SEVERITY [facility] MARVA - 0 0 [facility] OUTPATIEN [facility] T EMERGENCY 55591 FRANKY TOUSSAINT, 0 0 EMERGENCY [facility] T VISIT HIGH/URGE ASSOCIATE NT S SEVERITY OFFICE 56385 [facility], OUTPATIEN 0 0 [facility] T VISIT CLINIC OF 15 MINUTES [facility] OFFICE 71685 SHIRIN CARPIO, OUTPATIEN 0 0 GLORIA Sun T VISIT 15 MINUTES [facility] MARVA - 9 9 [facility] OUTPATIEN INC T EMERGENCY 99414 MARVA 9 9 [facility] DEPARTMEN INC T VISIT LOW/MODER SEVERITY EMERGENCY 02633 FRANKY SPARKS, DEPT [address] [facility] VISIT SERVICES O HIGH SEVERITY& ASSOCIATE THREAT S [facility] MARVA - 9 9 [facility] OUTPATIEN INC T OFFICE 03406 SHIRIN CARPIO OUTPATIEN 9 9 GLORIA Sun T NEW 30 MINUTES EMERGENCY 09302 MARVA 9 9 [facility] DEPARTMEN INC T VISIT LIMITED/M INOR PROB EMERGENCY 16562 FRANKY TOUSSAINT, 9 9 EMERGENCY [facility] T VISIT MODERATE ASSOCIATE SEVERITY S HOSPITAL MARVA - 9 9 [facility] OUTPATIEN INC T EMERGENCY 24830 FRANKY TOUSSAINT, 9 9 EMERGENCY [facility] T VISIT HIGH/URGE ASSOCIATE NT S SEVERITY EMERGENCY 16901 MARVA 9 9 [facility] DEPARTMEN INC T VISIT MODERATE SEVERITY [facility]OSPITAL MARVA - 9 9 [facility] OUTPATIEN INC T HOSPITAL MARVA - 9 9 [facility] OUTPATIEN INC T
--- OUTSIDE RECORDS SUMMARY | 2017-08-28 20:37 | External Medical Summary Rpt | CCD ---
Author Author , SHAYY Rice SHAYY Address Unknown Phone [email or web address] Care Team Providers Care Rehabilitation Inspector Name Role Phone SHIRIN NAHID, ARNOLD Unavailable Unavailable NAHID ARNOLD NAHID, ARNOLD Unavailable Unavailable NAHID SHIRIN, GLORIA W, Unavailable Unavailable ARNTRAVIS, GLORIA W MONIQUE BRO, MONIQUE Unavailable Unavailable BRO MONIQUE BRO, MONIQUE Unavailable Unavailable BRO BHABHRA, BHABHRA Unavailable Unavailable WHITTAKER ALL, WHITTAKER ALL Unavailable Unavailable [facility] Unavailable Unavailable INC, [employer] [employer] [facility] AMELIA MATTEO, AMELIA MATTEO Unavailable Unavailable AMELIA MATTEO, AMELIA MATTEO Unavailable Unavailable Brielle DAVIES MD Unavailable Unavailable [facility], Brielle DAVIES MD [facility] CHHAKCHHUAK CHR, Unavailable Unavailable [facility] CHIPPS JAI & Unavailable Unavailable DUBILIER, CHIPPS JAI & DUBILIER PLUMMER KATELYN, PLUMMER Unavailable Unavailable KATELYN PLUMMER KATELYN, PLUMMER Unavailable Unavailable KATELYN CHANDLER PLUMMER, Unavailable Unavailable [facility], Un[facility] Unavailable Unavailable [facility], [facility] Unavailable Unavailable [facility], [facility] Unavailable Unavailable LAB, [facility] Unavailable Unavailable [facility] JAMARCUS PAT, JAMARCUS PAT Unavailable Unavailable YOEL, YOEL Unavailable Unavailable YOEL BLAIR, Unavailable Unavailable YOEL BLAIR YOEL BLAIR, Unavailable Unavailable YOEL BLAIR YOEL, CAROLA, Unavailable Unavailable YOEL, CAROLA [facility] # [id number], Unavailable Unavailable [facility] # [id number] [facility] VISION, Unavailable Unavailable [facility] SHARON HERRERA Unavailable Unavailable YESICA OCTAVIO, Unavailable Unavailable YESICA OCTAVIO YESICA OCTAVIO, Unavailable Unavailable YESICA OCTAVIO WOODARD, WOODARD Unavailable Unavailable RICO KENYETTA, RICO Unavailable Unavailable VIKTORIA BUTT, Unavailable Unavailable VIKTORIA TOUSSAINT HARPEL OCTAVIO, HARPEL Unavailable Unavailable OCTAVIO [facility] Un[facility] Un[facility] INC, [facility] Un[facility], [facility] MCPHERSON HARRIS, MCPHERSON HARRIS Unavailable Unavailable [facility] Unavailable Unavailable P[facility], [facility], Unavailable Unavailable [facility] ROXANNE OLIVEIRA Unavailable Unavailable [facility] Unavailable Unavailable [facility], [facility] Unavailable Unavailable [facility], [facility] Unavailable Unavailable [facility], [facility] CARDONA, CARDONA Unavailable Unavailable NANDA JR, NANDA JR Unavailable Unavailable CHANG NAHID, CHANG Unavailable Unavailable NAHID CHANG NAHID, CHANG Unavailable Unavailable NAHID FRANKY WILKINS Unavailable Unavailable FRANKY CREWS, Unavailable Unavailable NATALIO THOMPSON Unavailable Unavailable [facility] Unavailable [facility]available [facility] FERNANDEZ LISA, JIM LISA Unavailable Unavailable DANIELLA FERNANDEZ, Unavailable Unavailable DANIELLA FERNANDEZ [facility], [facility], [facility] Unavailable Unavailable LAB[facility], [facility], Unavailable Unavailable [facility], [facility] Unavailable Unavailable LAB, [facility] PICKLESIMER JR LAUREANO, Unavailable Unavailable PICKLESIMER JR LAUREANO [facility] Unavailable Unavailable [id number] # [id number], [facility] [id number] # [id number] KEKE LESTER, Unavailable Unavailable KEKE LESTER SOKAN, ITZEL O, Unavailable Unavailable SOKAN, ITZEL O SOKARANEATHOMAS LOERA, Unavailable Unavailable SOTINGEATHOMAS COLIN JR CRISTI Unavailable Unavailable ALONZO BURCH Unavailable Unavailable ALONZO MELENDEZ Unavailable Unavailable [facility], Unavailable Unavailable [facility] Unavailable Unavailable [place] [facility], [facility] Unavailable Unavailable #, [facility] # [facility] Unavailable Unavailable #591, [facility]591 [facility] # Unavailable Unavailable [id number], [facility] # [id number] WEHRMAN III LISA, Unavailable Unavailable WEHRMAN III LISA WEHRMAN III LISA, Unavailable Unavailable WEHRMAN III LISA SIGRID CHR, SIGRID Unavailable Unavailable [facility] Unavailable Unavailable OF [place], [facility] [place] Purpose Continuity of Care Document - 05-16-2009 through 2016 Problems Code Diagnosis DOS Provider Status J208 ACUTE 07-23-2017 [facility] BRONCHITIS MEDICINE DUE TO [place] OTHER SPEC LLC ORGANISMS D351 BENIGN 04-28-2017 [facility] NEOPLASM OF OF [place] PARATHYROID PHY GLAND E210 PRIMARY 04-28-2017 [facility] HYPERPARATH OF YROIDISM [place] PHY E8352 HYPERCALCEM 04-28-2017 [facility] IA OF [place] PHY Z021 ENCOUNTER 04-18-2017 [facility] PRE-EMPLOYM INC ENT EXAMINATION E039 HYPOTHYROID 04-11-2017 [facility] ISM OF UNSPECIFIED [place] PHY E213 HYPERPARATH 04-11-2017 [facility] YROIDISM OF UNSPECIFIED [place] PHY E8350 UNSPECIFIED 04-11-2017 [facility] DISORDER OF [facility]OL[facility] F91195 ENCOUNTER 01-24-2017 [place] FOR MEDICAL SCREENING IMAGING ASS FOR OSTEOPOROSI S J069 ACUTE UPPER 01-17-2017 [facility] RESPIRATORY INC INFECTION UNSPECIFIED R0989 OTH SPEC SX 01-17-2017 [place] & SIGNS MEDICAL INVLV THE IMAGING ASS CIRC & RESP SYS Z720 TOBACCO USE 01-17-2017 [facility] INC K18526 ACQUIRED 12-01-2016 [facility] ABSENCE OF OF BOTH CERVIX [place] AND UTERUS PHY N34459 ACQUIRED 12-01-2016 [facility] ABSENCE OF OF OVARIES [place] UNILATERAL PHY Z9079 ACQUIRED 12-01-2016 [facility] ABSENCE OF OF OTHER [facility] GENITAL PHY ORGANS D234 OTHER 11-11-2016 [facility] LLC NEOPLASM OF SKIN OF SCALP AND NECK D492 NEOPLASM OF 11-10-2016 COMM[facility] UNS ANESTH OF BEHAVIOR THE [facility]UE BONE SOFT TISSUE & SKIN B55787 ENCOUNTER 11-05-2016 [facility] CARIOVASCUL AR EXAM Y94370 ENCOUNTER 11-05-2016 [facility] P AL LABORATORY EXAM L723 SEBACEOUS 09-09-2016 ARNOLD NAHID CYST E349 ENDOCRINE 06-04-2016 [facility] DISORDER OF [facility]PECIFIED [facility] M797 FIBROMYALGI 06-04-2016 [facility] R0602 SHORTNESS 06-04-2016 [facility] OF BREATH OF [place] PHY R5382 CHRONIC 06-04-2016 [facility] FATIGUE OF UNSPECIFIED [place] PHY Z8489 FAMILY 06-04-2016 [facility] HISTORY OF OF OTHER [place] SPECIFIED PHY CONDITIONS J97475 CUTANEOUS 05-31-2016 [facility] AB[facility]ESS OF [facility] LEFT LOWER INC LIMB L0390 CELLULITIS 05-31-2016 [facility] UNSPECIFIED PHYSICIANS, [facility] M069 RHEUMATOID 03-31-2016 [facility] ARTHRITIS H[facility]PITAL UNSPECIFIED I64048 PRIMARY 03-31-2016 [facility] OSTEOARTHRI OF TIS LEFT [place] HAND PHY E68994 PRIMARY 03-31-2016 [facility] OSTEOARTHRI OF TIS LEFT [place] ANKLE AND PHY FOOT M2550 PAIN IN 03-31-2016 [facility] UNSPECIFIED OF JOINT [facility] M7732 CALCANEAL 03-31-2016 [facility] SPUR LEFT HOSPITAL FOOT M791 MYALGIA 03-31-2016 [facility] W56312 PAIN IN 03-31-2016 [facility] RIGHT HAND OF [place] PHY V01027 PAIN IN 03-31-2016 [facility] RIGHT FOOT OF [place] PHY N6011 DIFFUSE 03-31-2016 [facility] CYSTIC OF MASTOPATHY [place] OF RIGHT PHY BREAST N644 MASTODYNIA 03-31-2016 [facility] PHY O039 COMPLETE OR 03-31-2016 [facility] UNS SPONT OF [place] W/O PHY COMPLICATIO N R768 OTH SPEC 03-31-2016 [facility] ABNORMAL OF IMMUNOLOGIC [place] AL FIND IN PHY SERUM 7295 PAIN IN 07-15-2015 [place] SOFT MEDICAL TISSUES OF IMAGING ASS LIMB 7823 EDEMA 07-15-2015 [facility] V909 RETAINED 07-15-2015 [place] FOREIGN MEDICAL BODY IMAGING ASS UNSPECIFIED MATERIAL 6262 EXCESSIVE 05-22-2015 [facility] OR FREQUENT PHYSICIANS GROUP MENSTRUATIO N 2181 INTRAMURAL 01-13-2015 [facility] LEIOMYOMA PHYSICIANS OF UTERUS GROUP 2189 LEIOMYOMA 01-13-2015 [facility] OF UTERUS, MEM [facility]OS[facility] UNSPECIFIED INC 220 BENIGN 01-13-2015 [facility], NEOPLASM OF LLC OVARY 2331 CARCINOMA 01-13-2015 [facility], IN SITU OF LLC CERVIX UTERI 6212 HYPERTROPHY 01-13-2015 [facility] OF UTERUS PHYSICIANS GROUP 6259 UNSPEC 01-13-2015 [facility] SYMPTOM PHYSICIANS ASSOC GROUP W/FEMALE GENITAL ORGANS 6268 OTH D/O 01-13-2015 COMMUNITY MENSTRUATIO ANESTH OF N&OTH ABN THE BLUE BLEED FE GNT TRACT 2449 UNSPECIFIED 12-18-2014 [facility] HYPOTHYROID INC ISM 0794 HUMAN 12-17-2014 [facility], PAPILLOMA LLC VIRUS IN CCE & UNS SITE V1589 OTH SPEC 12-17-2014 [facility], PERS HX LLC PRESENTING HAZARDS HEALTH OT 6201 CORPUS 07-24-2014 PLUMMER KATELYN LUTEUM CYST OR HEMATOMA 42694 PAP SMER 05-08-2014 [facility] KATELYN CERV W/LW GRADE SQUAMOUS INTRAEPITH LES V7231 ROUTINE 04-09-2014 CHANG NAHID GYNECOLOGIC AL EXAMINATION 4650 ACUTE 03-05-2014 [facility] LARYNGOPHAR PHYSICIANS YNGITIS GROUP 4660 ACUTE 11-02-2013 [facility] BRONCHITIS [facility] INC 490 BRONCHITIS 11-02-2013 MONIQUE BRO NOT SPECIFIED ACUTE OR CHRONIC 7862 COUGH 11-02-2013 YOEL BLAIR 2724 OTHER AND 07-27-2013 [facility] UNSPECIFIED PHYSICIANS [place] HYPERLIPIDE JUAN MANUEL 4619 ACUTE 07-27-2013 ARNTRAVIS WHITFIELD SINUSITIS, UNSPECIFIED 82847 PAIN IN 07-27-2013 LAB EN[facility]QUE JOINT, SITE [facility] HOLDINGS UNSPECIFIED 7291 UNSPECIFIED 07-27-2013 SHIRIN WHITFIELD MYALGIA AND MYOSITIS 08683 OTHER 07-27-2013 LAB EN[facility]QUE MALAISE AND IWNSOME FATIGUE HOLDINGS 68792 UNSPECIFIED 06-19-2013 [facility] ABNORMAL [facility] MAMMOGRAM INC V7612 OTHER 12-19-2012 [facility] SCREENING [facility] MAMMOGRAM INC V0481 NEED 09-14-2012 AMELIA FELIPE PROPHYLACTI C VACCINATION &INOCULATIO N FLU 82471 SWELLING OF 07-09-2012 WEHRMAN III LIMB LISA 9174 FOOT&TOE 07-09-2012 [facility] INSECT BITE [facility] INC NONVENOMOUS W/O MENTION INF 6869 UNSPEC 05-02-2012 SHIRIN WHITFIELD LOCAL INFECTION SKIN&SUBCUT ANEOUS TISSUE 92652 PAIN IN 03-03-2012 [place] JOINT, MEDICAL LOWER LEG IMAGING ASS 01661 PAIN IN 03-03-2012 [place] JOINT, MEDICAL ANKLE AND IMAGING ASS FOOT 8260 CLOSED 03-03-2012 [place] FRACTURE OF MEDICAL ONE OR IMAGING ASS MORE PHALANGES OF FOOT 79168 VARIANTS 02-29-2012 SHIRIN WHITFIELD MIGRAINE NEC INTRACT MIGRAINE W/O SM 7242 LUMBAGO 02-02-2012 YESICA OCTAVIO 59381 UNSPEC 11-03-2011 SHIRIN WHITFIELD STAPHYLOCOC CUS INFECTION CCE & UNS SITE 6829 CELLULITIS 10-16-2011 [facility] AND ABSCESS [facility]OS[facility] OF INC UNSPECIFIED SITE 2165 BENIGN 07-27-2011 [facility] NEOPLASM OF JAI & SKIN OF DUBILIER TRUNK EXCEPT SCROTUM 2166 ANTWON 07-27-2011 C JAYLENE NEOPLASM SCHULSTAD SKIN UPPER MD [facility] LIMB INCLUDING SHOULDER 3670 HYPERMETROP 07-27-2011 [facility] IA VISION 49308 OTHER 07-27-2011 [facility] SEBORRHEIC JAI & KERATOSIS DUBILIER 36383 OBESITY, 05-03-2011 SHIRIN WHITFIELD UNSPECIFIED 6218 OTHER 03-29-2011 [facility] SPECIFIED JAI & DISORDERS DUBILIER OF UTERUS NEC 6253 DYSMENORRHE 03-10-2011 [facility] [place] 49398 OSTEOARTHRO 08-29-2010 SHIRIN WHITFIELD S INVLV MX SITES BUT NOT SPEC GEN V242 ROUTINE 07-23-2010 [facility] [place] V252 STERILIZATI 07-06-2010 [facility] [place] V502 ROUTINE OR 05-28-2010 [facility] RITUAL PHYSICIAN CIRCUMCISIO GROUP [facility] N 80512 ERLY ONSET 05-27-2010 [facility] W/WO CLINIC OF MENTION [place] HAIDER [facility] COND 650 NORMAL 05-27-2010 [facility] DELIVERY [facility] CLINIC OF [place] [facility] V270 OUTCOME OF 05-27-2010 [facility] DELIVERY HEALTH SINGLE CLINIC OF LIVEBORN [place] [facility] 33737 THREATENED 05-26-2010 [facility] PREMATURE PHYSICIAN LABOR GROUP [facility] ANTEPARTUM V221 SUPERVISION 05-26-2010 [facility] OF OTHER HEALTH NORMAL CLINIC OF [facility] 50717 OTHER 05-10-2010 [facility] THREATENED PHYSICIAN LABOR, GROUP [facility] ANTEPARTUM 07056 EXCESS 05-06-2010 [facility] OF AFFECT MGMT [place] TOMAS [facility] 06473 DECR 05-01-[address] [facility] [facility] MOTH CLIN[facility] OF M[place]IZA KINNEY COND/COMP PLLC 5990 URINARY 04-28-2010 [facility] TRACT PHYSICIANS INFECTION LAB SITE NOT SPECIFIED V283 ENCOUNTER 02-05-2010 [facility] ROUTINE HEALTH SCREEN CLINIC OF MALFORMATIO [place] N [facility] ULTRASONIC V220 SUPERVISION 01-20-2010 [facility] OF NORMAL MEM HOS[facility] FIRST INC 87514 OTHER 01-13-2010 [facility] SPECIFED [facility] COMPLICATIO INC N ANTEPARTUM 19116 OT CURRENT 01-13-2010 [facility] MAT CONDS EMERGENCY CLASSIFIABL SERVICES E ELSW ASSOCIATES [facility] 7245 UNSPECIFIED 01-13-2010 [facility] BACKACHE EMERGENCY SERVICES ASSOCIATES 7840 HEADACHE 01-13-2010 [facility] PHYSICIAN GROUP PCC V222 01-13-2010 [facility] INCIDENTAL INC V745 SCREENING 11-24-2009 MOLECULAR EXAMINATION PATHOLOGY FOR LAB NETWORK VENEREAL INC DISEASE 59300 THREATENED 10-28-2009 [facility]'S , HEALTH ANTEPARTUM [facility]IN[facility] OF [facility] 97467 10-28-2009 [facility] COMP RECUR HEALTH PREG LOSS [facility]IN[facility] OF [facility] [place] COND/COMP [facility] 74871 ABDOMINAL 10-21-2009 [facility] PAIN, EMERGENCY UNSPECIFIED SERVICES SITE ASSOCIATES 46804 ABDOMINAL 10-21-2009 [facility] PAIN, MEM [facility]OS[facility] GENERALIZED INC 15442 STOMATITIS 08-04-2009 [facility] AND EMERGENCY MUCOSITIS SERVICES UNSPECIFIED ASSOCIATES 5060 BRONCHITIS& 07-23-2009 [place] PNEUMONITIS MEDICAL DUE TO IMAGING FUMES&VAPOR ASSOCIATES S 9879 TOXIC 07-23-2009 [facility] EFFECT OF EMERGENCY UNSPECIFIED SERVICES GAS FUME ASSOCIATES OR VAPOR E8490 PLACE OF 07-23-2009 [place] OCCURRENCE, MEDICAL HOME IMAGING ASSOCIATES E8912 OTH 07-23-2009 [place] SMOKE&FUMES MEDICAL CONFLAGRAT IMAGING OTH&UNS ASSOCIATES BLDG/STRCT Medications Na ND Rx Da Fi Fi Am Da Di Ph RX Ph St me C No te ll ll ou ys ag ar # ys at rm s nt no ma ic us Or Da si cy ia de te s n re d [place] 00 09 10 10 5 00 KR [...] CV E S 88 PH AR MC BLAYNE G CY TA BL LL ET C, [...] PH AR MA CY #0 54 37 CE 68 03 04 20 10 00 [...] 75 CY 0 MG TA BL ET GA 69 02 03 18 30 00 [...] 34 1- 3- 00 00 UC ve [place] 59 20 20 86 [place] ED 31 [...] 34 6- 3- 00 83 LD ve [place] 59 20 20 AI ED 31 11 [...] 1 PH C CE AR TA MA OR CY NO # PH EN 10 05 [...] 0 60 30 CL 23 CL Ac [place] 74 -0 -0 .0 IN 78 AR [...] # AR D 05 W 43 7 DO 00 01 01 1 20 10 CV 55 AR Ac XY 14 -2 -2 .0 S 85 NO ti CY 32 6- 6- 00 PH 56 LD ve CL 11 20 20 AR IN 20 11 11 MA RI E 5 CY CH HY # AR CL D AT 05 W E 43 10 7 0 MG TA B LI 00 01 01 1 10 3 CV 55 AR Ac DO 05 -2 -2 0. S 85 NO ti CA 43 6- 6- 00 PH 57 LD ve IN 50 20 20 0 AR E 04 11 11 MA RI 2% 9 CY CH # AR D SC 05 W OU [address] ME 59 01 01 1 21 6 CV 55 AR Ac TH 74 -2 -2 .0 S 85 NO ti YL 60 6- 6- 00 PH 58 LD ve [place] 00 20 20 AR ED 10 11 [...] MC 43 G 7 TA BL ET [place] 00 12 12 2 60 30 RI [...] 8- 8- 00 PH 72 LD ve [place] 00 20 20 AR ED 10 10 [...] DEE 8 LE # R 03 93 AZ 00 10 10 1 6. 5 RI 85 AR Ac IT 78 -2 -2 00 TE 51 NO ti HR 11 3- 3- 0 43 LD ve OM 49 20 20 AI YC 66 10 10 D RI IN 8 PH CH AR AR 25 MA D 0 CY W MG 03 TA 93 BL 8 ET # 03 93 60 10 10 1 24 6 RI 85 AR Ac 25 -2 -2 0. TE 51 NO ti 80 3- 3- 00 44 LD ve 23 20 20 0 AI 91 10 10 D RI 6 PH CH AR AR MA D CY W 03 93 8 # 03 93 LE 00 12 09 [...] 4- 4- 00 PH 20 KE ve OR 20 20 20 AR DE 81 10 [...] RE MA K CY J LL C [place] 65 12 06 11 30 30 WA [...] G TA 10 BL 05 ET 91 [place] 65 12 05 11 30 30 WA [...] MC G #5 TA 91 BL ET [place] 65 12 12 00 30 30 WA 70 CL Ac EN 16 -2 -3 .0 L- 51 AR ti AT 20 2- 1- 00 MA 24 KE ve AL 66 20 20 RT 4 [address] 0 PH RE US AR K MA J TA CY BL ET #5 91 [place] 68 12 12 00 20 5 WA [...] 3- 3- 00 MA 55 LD ve NY 59 20 20 RT 0 ED 31 09 09 RI NI 5 PH CH SO AR AR LO MA D NE CY W 4 #5 MG 91 DO SE PK ME 00 11 11 00 21 6 WA 70 AR Ac TH 60 -1 -1 .0 L- 45 NO ti YL 34 3- 9- 00 MA 55 LD ve [place] 59 20 20 RT 0 ED 31 09 09 RI NI 5 PH CH SO AR AR LO MA D NE CY W 4 #5 MG 91 DO SE PK LE 00 11 11 00 30 30 WA 70 AR Ac VO 37 -1 -1 .0 L- 45 NO ti TH 81 3- 9- 00 MA 54 LD ve YR 80 20 20 RT 3 OX 90 09 09 RI IN 1 PH CH E AR AR 10 MA D 0 CY W MC G #5 TA 91 BL ET AZ 00 11 11 00 6. 5 WA 70 AR Ac IT 78 -1 -1 00 L- 45 NO ti HR 11 3- 9- 0 MA 54 LD ve OM 49 20 20 RT 6 YC 66 09 09 RI IN 8 PH CH AR AR 25 MA D 0 CY W MG #5 TA 91 BL ET LI 00 09 10 00 12 5 WA 70 GA Ac DO 60 -2 -2 0. L- 39 IN ti CA 31 8- 2- 00 MA 80 EY ve IN 39 20 20 0 RT 9 E 36 09 09 OR 2% 4 PH CH AR AE MA L SC CY S OU S #[address] 00 09 10 00 6. 5 WA 70 GA Ac 59 -2 -2 00 L- 39 IN ti 12 8- 2- 0 MA 80 EY ve 23 20 20 RT 9 50 09 09 OR 1 PH CH AR AE MA L CY S #5 91 DI 00 09 10 00 60 5 WA 70 GA Ac PH 53 -2 -2 .0 L- 39 IN ti EN 60 8- 2- 00 MA 80 EY ve HI [address] 09 09 09 OR 7 PH CH 12 AR AE .5 MA L CY S MG /5 #[address] [place] 00 09 10 00 3. 6 WA 70 GA Ac UC 17 -2 -0 00 L- 39 IN ti ON 25 8- 8- 0 MA 66 EY ve AZ 41 20 20 RT 0 OL 14 09 09 OR E 6 PH CH 10 AR AE 0 MA L MG CY S TA #5 BL 91 ET ME 00 09 09 00 21 6 WA 73 SA Ac TH 60 -1 -2 .0 L- 12 DE ti YL 34 6- 4- 00 MA 26 K ve [place] 59 20 20 RT 5 MO ED [...] 12 20 20 RT 1 MO IN 00 09 09 DEE E 2 PH ME HY [...] S 0.5 ML DOSA GE IM USE Procedures Procedure DOS Code Location Performer Comment PARATHYRO 31387 UN[facility] COLIN IDECTOMY/ 7 Y OF JR EXPLORATI [place] ON I PHY PARATHYRO IDS ANES 29833 JEAN-CLAUDE HERRERA ESOPH 7 Y OF THYRD [place] LARYNX I PHY TRACH & [place] 1[place] [address] JEAN-CLAUDE OLIVEIRA SURG 7 Y OF PATHOLOGY [place] I PHY GROSS&EMMA ROSCOPIC EXAM PATH 94904 [facility] L[facility]OS CONSLTJ 7 Y OF SURG 1ST [place] BLK I PHY FROZEN SCTJ 1 SPEC IMHISTOCH 02976 JEAN-CLAUDE OLIVEIRA EM/CYTCHM 7 Y OF 1ST [place] ANTIBODY I PHY STAIN PROCEDURE COLLECTIO 29697 [facility] N VENOUS 7 [facility] [place] [address] [facility] PARATHORM 7 [facility] ONE INC INC CALCIUM 45540 [facility] TOTAL 7 [facility] INC INC US SOFT 07712 JEAN-CLAUDE COLIN TISSUE 7 Y OF JR HEAD & [place] NECK REAL I PHY TIME IMGE DOCM COLLECTIO 14989 [facility] N VENOUS 7 [facility] [place] [address] [facility] FREE 7 [facility] [place] [address] [facility] THYROID 7 [facility] STIMULATI INC INC NG HORMONE TSH CREATININ 98165 [facility] E OTHER 7 [facility] SOURCE INC INC CALCIUM 24505 [facility] URINE 7 [facility] QUANTITAT INC INC REYES TIMED SPECIMEN 25 46862 [facility] HYDROXY 7 [facility] INCLUDES [place] [address] [facility] PARATHORM 7 [facility] ONE INC INC COLLECTIO 46057 [facility] D[facility] N VENOUS 7 [facility] BLOOD INC INC VENIPUNCT URE BASIC 83016 [facility] D[facility] METABOLIC 7 [facility] PANEL INC INC CALCIUM TOTAL MYOCARDIA 92334 [facility] Cloud SPECT 7 MEDICAL SINGLE IMAGING STUDY AT ASS REST OR STRESS DXA BONE 03790 [facility] DENSITY 7 [facility] STUDY 1/> INC INC SITES AXIAL SKEL TECHNETIU A9500 [facility] Virk TC-99M 7 [facility] SESTAMIBI INC INC DX PER STUDY DOSE RADIOLOGI 57773 [facility] C EXAM 7 [facility] CHEST 2 INC INC VIEWS FRONTAL&L ATERAL BASIC 04417 [facility] METABOLIC 7 [facility] PANEL INC INC CALCIUM TOTAL COLLECTIO 10573 [facility] Merlos VENOUS 7 [facility] BLOOD INC INC VENIPUNCT URE CREATININ 51025 [facility] D[facility] E OTHER 7 [facility] SOURCE INC INC VOLUME 45071 [facility] MEASUREME 7 [facility] NT TIMED INC INC COLLECTIO N EACH CALCIUM 06879 [facility] URINE 7 [facility] QUANTITAT INC INC REYES TIMED SPECIMEN HOSPITAL G0463 [facility] 7 Y Y T [facility] HOSPITAL VISIT ASSESS & MGMT PT ADJT TIS 86146 [facility] CARDONA TRNS/REAR 7 PHYSICIAN GMT S GROUP F/C/C/M/N /A/G/H/F 10SQCM/< [place] [address] [facility], [facility] SURG 7 [facility] PATHOLOGY GROSS&EMMA ROSCOPIC EXAM ANES 28357 [facility] INTEG 7 ANESTH MUSC & OF THE NRV HEAD BLUE NECK&POST ERIOR TRUNK BASIC 36013 [facility] METABOLIC 6 [facility] PANEL INC INC CALCIUM TOTAL COLLECTIO 99862 [facility] D[facility] N VENOUS 6 [facility] BLOOD INC INC VENIPUNCT URE BLOOD 64797 [facility] COUNT 6 [facility] COMPLETE INC INC AUTO&AUTO DIFRNTL WBC ECG 59905 [facility] VEE JR ROUTINE 6 [facility] W/LEAST P 12 LDS I&R ONLY ECG 93121 [facility] ROUTINE 6 [facility] ECG INC INC W/LEAST 12 LDS TRCG ONLY W/O I&R HOSPITAL [id number] [facility] OUTPATIEN 6 Y Y T [facility] HOSPITAL VISIT ASSESS & MGMT PT US SOFT 61982 [place] [facility] ALL TISSUE 6 MEDICAL HEAD & IMAGING NECK REAL ASS TIME IMGE DOCM RADEX 95328 [facility] HAND 6 Y Y MINIMUM 3 HOSPITAL HOSPITAL VIEWS US BREAST 13533 [facility] UNI REAL 6 Y Y TIME HOSPITAL HOSPITAL WITH IMAGE LIMITED DIAGNOSTI G0204 [facility] C 6 Y Y MAMMOGRAP [facility] HY INCL CAD WHEN PERF; BILAT RADEX 46580 [facility] FOOT 6 Y Y COMPLETE HOSPITAL HOSPITAL MINIMUM 3 VIEWS RADEX 91020 [place] [facility] FOOT 5 MEDICAL BLAIR COMPLETE IMAGING MINIMUM 3 ASS VIEWS RADEX 36054 [place] [facility] HAND 5 MEDICAL BLAIR MINIMUM 3 IMAGING VIEWS [facility] G0378 [facility] OBSERVATI 5 [facility] ON INC INC SERVICE PER HOUR BASIC 99495 [facility] METABOLIC 5 [facility] PANEL INC INC CALCIUM TOTAL BLOOD 06920 [facility] COUNT 5 [facility] COMPLETE INC INC AUTO&AUTO DIFRNTL WBC COLLECTIO 21519 [facility] N VENOUS 5 [facility] BLOOD INC INC VENIPUNCT URE BLOOD 53929 [facility] COUNT 5 [facility] COMPLETE INC INC AUTO&AUTO DIFRNTL WBC COLLECTIO 13807 [facility] N VENOUS 5 [facility] BLOOD INC INC VENIPUNCT URE BASIC 60134 [facility] METABOLIC 5 [facility] PANEL INC INC CALCIUM TOTAL URINE 75653 [facility] 5 [facility] TEST INC INC VISUAL COLOR CMPRSN [facility] G0378 [facility] OBSERVATI 5 [facility] ON INC [place] [address] [facility], CHANG SURG 5 [facility] NAHID PATHOLOGY GROSS&EMMA ROSCOPIC EXAM URNLS DIP 43874 [facility] STICK/TAB INC INC LET REAGENT AUTO MICROSCOP Y BLOOD 93481 [facility] COUNT 5 [facility] HEMOGLOBI INC INC N ANESTHESI 88145 [facility]ONZO A VAGINAL 5 ANESTH CARLA OF THE HYSTERECT BLUE YURI INCL BIOPSY BLOOD 04634 [facility] COUNT 5 [facility] HEMATOCRI INC INC T LAPS 64160 [facility] W/VAG 5 [facility] HYSTERECT INC INC 250 GM/&RMVL TUBE&/OVA MARLENY LEVEL 67724 [facility], CHANG SURG 5 [facility] NAHID PATHOLOGY GROSS&EMMA ROSCOPIC EXAM INJECTION J2405 [facility] ONDANSETR INC INC ON HCL PER 1 MG CULTURE 38340 [facility] BACTERIAL 5 [facility] INC INC QUANTTATI VE COLONY COUNT URINE INJECTION J0131 [facility] ACETAMINO INC INC [place] 10 [place] [address] [facility] ELIAN TRANSVAGI 5 [place] [address] [facility] D[facility] THYROID 5 [facility] STIMULATI INC INC NG HORMONE TSH COLLECTIO 66553 [facility] [facility] N VENOUS 5 [facility] [place] [address] P&C LABS, JAMARCUS PAT SURG 5 [facility] PATHOLOGY GROSS&EMMA ROSCOPIC EXAM COLPOSCOP 16220 [facility] ELIAN Y CERVIX 5 PHYSICIAN KATELYN ENDOCERVI S GROUP [place]ORDON CURETTAGE CYTP C/V 92793 P&C LABS, PICKLESIM AUTO THIN 5 [facility] ER JR LAUREANO [place] [address] ELIAN PLUMMER TRANSVAGI 4 [place] [address] [facility] LAB[facility], CHANG SURG 4 [facility] NAHID PATHOLOGY GROSS&EMMA ROSCOPIC EXAM URINE 19732 ELIAN PLUMMER 4 KATELYN KATELYN TEST VISUAL COLOR CMPRSN METHS COLPOSCOP 19801 ELIAN PLUMMER Y CERVIX 4 KATELYN KATELYN V[place] [address] P&[facility] LABS, FRANKY SURG 4 [facility] PATHOLOGY GROSS&EMMA ROSCOPIC EXAM COLPOSCOP 15241 ELIAN MITCHELLE Y CERVIX 4 KATELYN KATELYN BX CERVIX & [place] [address] ELIAN PLUMMER TRANSVAGI 4 KATELYN KATELYN NAL CYTP 37963 CHANG CHANG CERVICAL/ 4 NAHID NAHID VAGINAL REQ INTERP PHYSICIAN CYTP C/V 46548 CHANG CHANG AUTO THIN 4 NAHID NAHID LYR PREPJ SCR MNL RESCR PHYS IAADIADOO 94494 [facility] 4 PHYSICIAN PHYSICIAN STREPTOCO S GROUP S GROUP CCUS GROUP A IAADI 01526 [facility] INFLUENZA 3 [facility] B VIRUS INC INC IAADI 51749 [facility] D[facility] INFFLUENZ 3 [facility] A A VIRUS INC INC RADIOLOGI 62513 [facility] C EXAM 3 [facility] CHEST 2 INC INC VIEWS FRONTAL&L ATERAL ANTINUCLE 95810 LAB ENRIQUE LAB ENRIQUE AR 3 WINSOME WINSOME ANTIBODIE HOLDINGS HOLDINGS S CROW RHEUMATOI 95807 COMBINED COMBINED D FACTOR 3 PHYSICIAN PHYSICIAN QUALITATI S LA S LA VE SEDIMENTA 94430 COMBINED COMBINED TION RATE 3 PHYSICIAN PHYSICIAN RBC S LA S LA NON-AUTOM ATED LIPID 42312 COMBINED COMBINED PANEL 3 PHYSIC[place] [address] COMBINED COMBINED BLOOD/URI 3 PHYSICIAN PHYSICIAN C ACID S LA S LA GENERAL 46618 COMBINED COMBINED HEALTH 3 PHYSICIAN PHYSICIAN PANEL S LA S LA THYROID 26064 COMBINED COMBINED HORM 3 PHYSICIAN PHYSICIAN UPTK/THYR S LA S LA OID HORMONE BINDING RATIO 25 38833 LAB ENRIQUE LAB ENRIQUE HYDROXY 3 WINSOME WINSOME INCLUDES HOLDINGS HOLDINGS FRACTIONS IF PERFORMED DIAGNOSTI G0206 [facility] C 3 [facility] MAMMOGRAP INC INC HY INCL CAD WHEN PERF; UNI SCREENING G0202 [facility] MAMMOGRAP INC INC HY MAXIM INCL CAD WHEN PERFORMD COMPUTER- 17319 [facility] AIDED 3 [facility] DETECTION INC INC SCREENING MAMMOGRAP HY IM ADM 00121 AMELIA CISNEROS MATTEO PRQ ID 2 SUBQ/IM NJXS 1 VACCINE IIV3 38900 AMELIA MATTEO AMELIA MATTEO VACCINE 2 SPLIT VIRUS 0.5 ML DOSAGE IM USE RADIOLOGI 76181 SUZIE TALLEYUTCHER C 2 MEDICAL BLAIR EXAMINATI IMAGING ON KNEE 3 ASS VIEWS RADEX 56200 SUZIE TALLEYUTCHER ANKLE 2 MEDICAL BLAIR COMPLETE IMAGING MINIMUM 3 ASS VIEWS RADEX 31297 SUZIE TALLEYUTCHER FOOT 2 MEDICAL BLAIR COMPLETE IMAGING MINIMUM 3 ASS VIEWS NRV CNDJ 11438 YESICA YESICA AMPLT&LAT 2 OCTAVIO OCTAVIO ENCY EA NRV MOTOR W/F-WAVE STD NRV CNDJ 88715 YESICA YESICA AMPLITUDE 2 OCTAVIO OCTAVIO & LATENCY EACH NERVE SENSORY H-REFLEX 75301 YESICA YESICA AMPLT&LAT 2 OCTAVIO OCTAVIO ENCY GASTRCN/S OLEUS MUSC NEEDLE 61065 YESICA YESICA EMG EA 2 OCTAVIO OCTAVIO EXTREMTY W/PARASPI NL AREA COMPLETE CUL BACT 82541 [facility] XCPT 1 [facility] URINE INC INC BLOOD/STO OL AEROBIC ISOL CUL BACT 45477 [facility] AEROBIC 1 [facility] ADDL INC INC METHS DEFINITIV E EA ISOL SUSCEPTIB 27252 [facility] LTY STDY 1 [facility] ANTIMICRB INC INC IAL MICRO/[place] [address] CHIPPS CHANG SURG 1 JAI & NAHID PATHOLOGY DUBILIER GROSS&EMMA ROSCOPIC EXAM EXC B9 84054 C JAYLENE SCHULSTAD LESION 1 SCHULSTAD TREVON MRGN XCP PSC SK TG T/A/L 0.5 CM/< OPHTH 21755 LASHAY [facility] 1 VISION XM&EVAL COMPRE NEW PT 1/> VST EXC B9 55473 C JAYLENE PETERSAD LESION 1 KEKE LESTER MRLISANDRO JENNINGSP PSYCHIATRIC SK TG T/A/L 1.1-2.0 CM HYSTEROSC 6812 [facility] OPY 1 [place] [address] [facility] INFUSION 1 [facility] THERAPY INC INC PROPHYLAX IS/DX EA HOUR ENDOMETRI 6823 [facility] AL 1 [facility] ABLATION INC INC THERAPEUT 34473 [facility] IC 1 [facility] INJECTION INC [place] [address] CHIPPS CHANG SURG 1 JAI & NAHID PATHOLOGY [facility] GROSS&EMMA ROSCOPIC EXAM ANES 86368 [facility] HYSTEROSC 1 ANESTH CARLA OPY&/HYST OF THE EROSALPIN BLUE GOGRAPHY W/BX HYSTEROSC 60287 [facility] OPY 1 [facility] ENDOMETRI INC INC AL ABLATION BLOOD 77509 [facility] COUNT 1 [facility] COMPLETE INC INC AUTO&AUTO DIFRNTL WBC GONADOTRO 49531 [facility] PIN 1 [facility] CHORIONIC INC INC QUALITATI VE BASIC 18511 [facility] D[facility] METABOLIC 1 [facility] [place] [address] [facility] TRANSVAGI 1 HEALTH K[facility]ELYN [facility] [place] CYTP 40134 UNA HEART SLCTV 1 LABORATOR LABORATOR CELL IES INC IES INC ENHANCEME NT INTERPJ XCPT C/[place] [address] [facility] THYROXINE 0 [facility] [place] [address] [facility] D[facility] THYROID 0 [facility] STIMULATI INC INC NG HORMONE TSH THYROID 89701 [facility] HORM 0 [facility] UPTK/THYR INC INC OID HORMONE BINDING RATIO CYTP 06043 PATHOLOGY PATHOLOGY CERVICAL/ 0 & & VAGINAL CYTOLOGY CYTOLOGY REQ LAB LAB INTERP PHYSICIAN CYTP C/V 25280 PATHOLOGY PATHOLOGY AUTO THIN 0 & & LYR CYTOLOGY CYTOLOGY PREPJ SCR LAB LAB MNL RESCR PHYS OTH BILAT 6629 [facility] ENDO 0 [facility] DESTRUC/[place] [address] [facility] INFUSION 0 [facility] THERAPY INC [place] [address] [facility] INFUSION 0 [facility] THERAPY/P INC INC ROPHYLAXI S /DX 1ST TO 1 HR THERAPEUT 10733 [facility] IC 0 [facility] INJECTION INC INC IV PUSH EACH NEW DRUG LAPAROSCO 70097 [facility] PY W/PLMT 0 HEALTH KATELYN CLINIC OF OCCLUSION [place] DEVICE OVIDUCTS URINE 42749 [facility] 0 [facility] TEST INC INC VISUAL COLOR CMPRSN METHS ANES IPER 84537 [facility] LWR ABD 0 ANESTH W/LAPS OF THE TUBAL BLUE LIGATION/ TRANSECT BLOOD 34624 MARVA [facility]VA COUNT 0 [facility] COMPLETE INC INC AUTO&AUTO DIFRNTL WBC CIRCUMCIS 49777 [facility] ION 0 PHYSICIAN OCTAVIO W/CLAMP/O GROUP TH DEV PCC W/BLOCK VAGINAL 49642 [facility], DELIVERY 0 [facility] CLINIC OF W/POSTPAR CHAR CARE [place] PLLC INITIAL 12694 [facility] INPATIENT 0 PHYSICIAN OCTAVIO CONSULT GROUP NEW/ESTAB PCC PT 55 MIN OTHER 7359 [facility] MANUALLY 0 [facility] ASSISTED INC INC DELIVERY NEURAXIAL 45401 [facility] FERNANDEZ, LABOR 0 ANESTH DANIELLA F ANALG/ANE OF THE S PLND [place] VAGINAL DELIVERY OBSERVATI 21745 [facility] ON/INPATI 0 PHYSICIAN OCTAVIO ENT GROUP [facility] PCC CARE 55 MINUTES 64191 [facility], NONSTRESS 0 [facility] J TEST CLINIC OF [place] [facility] CUL BACT 66477 COMBINED COMBINED XCPT 0 PHYSICIAN PHYSICIAN URINE S LAB S LAB BLOOD/STO OL AEROBIC ISOL OBSERVATI 80242 [facility] ON/INPATI 0 PHYSICIAN [facility] PCC CARE 55 MINUTES 47225 [facility] NONSTRESS 0 [facility] TEST INC INC FTL 38964 [facility] FIBRONECT 0 [facility] IN INC INC CERVICOVA G SECRETION S SEMI-DESIREE URNLS DIP 50350 [facility] 0 [facility] STICK/TAB INC INC LET REAGENT AUTO MICROSCOP Y 51333 [facility], BIOPHYSIC 0 [facility] [place] CLINIC OF PROFILE W/O [place] NON-STRES [facility] S TESTING DOPPLER 76279 [facility], VELOCIMET 0 [facility] J RY CLINIC OF UMBILICAL ARTERY [place] [facility] US PREG 17697 [facility], UTERUS 0 [facility] J REAL TIME CLINIC OF F/U TRNSABDL [place] PER FETUS [facility] 94187 [facility], NONSTRESS 0 [facility] J TEST CLINIC OF [place] [facility] URNLS DIP 64659 [facility] 0 [facility] STICK/TAB INC INC LET REAGENT AUTO MICROSCOP Y FTL 32129 [facility] FIBRONECT 0 [facility] IN INC INC CERVICOVA G SECRETION S SEMI-DESIREE CULTURE 17735 [facility] BACTERIAL 0 [facility] INC INC QUANTTATI VE COLONY COUNT URINE OBSERVATI 26640 [facility] ELIAN, ON CARE 0 [facility] J DISCHARGE CLINIC OF MANAGEMEN [place] T [facility] HOSPITAL G0378 [facility] OBSERVATI 0 [facility] ON INC INC SERVICE PER [facility] G0378 [facility] OBSERVATI 0 [facility] ON INC INC SERVICE PER HOUR INITIAL 68963 [facility], OBSERVATI 0 [facility] J ON CLINIC OF CARE/DAY 30 [place] MINUTES [facility] URNLS DIP 61672 [facility] 0 [facility] STICK/TAB INC INC LET REAGENT AUTO MICROSCOP Y CULTURE 24059 COMBINED COMBINED BACTERIAL 0 PHYSICIAN PHYSICIAN S LAB S LAB QUANTTATI VE COLONY COUNT URINE FTL 67563 [facility] FIBRONECT 0 [facility] IN INC INC CERVICOVA G SECRETION S SEMI-DESIREE GLUCOSE 67643 [facility], TOLERANCE 0 [facility] J TEST GTT CLINIC [facility] GLUCOSE 61996 [facility], POST 0 [facility] J GLUCOSE CLINIC OF DOSE [place] [facility] 89119 [facility] PL[facility], NONSTRESS 0 [facility] J [facility] 56521 [facility], NONSTRESS 0 [facility] [place] [address] [facility] NONSTRESS 0 [facility] TEST INC INC FTL 11458 [facility] FIBRONECT 0 [facility] IN INC INC CERVICOVA G SECRETION S SEMI-DESIREE URNLS DIP 07056 [facility] 0 [facility] STICK/TAB INC INC LET REAGENT AUTO MICROSCOP Y OBSERVATI 82265 [facility] ON/INPATI 0 PHYSICIAN [facility] PCC CARE 55 MINUTES CULTURE 04119 [facility] BACTERIAL 0 [facility] INC INC QUANTTATI VE COLONY COUNT URINE US PREG 61749 [facility], UTERUS 0 [facility] J AFTER 1ST CLINIC OF TRIMEST [place] [facility] [place] [address] [facility] D[facility] THYROID 0 [facility] STIMULATI [place] [address] [facility] FREE 0 [facility] THYROXINE INC INC ALPHA-FET 47965 [facility] OPROTEIN 0 [facility] [place] [address] [facility] ESTRIOL 0 [facility] INC INC GONADOTRO 13696 [facility] PIN 0 [facility] CHORIONIC INC INC QUANTITAT REYES URNLS DIP 38665 [facility] 0 [facility] STICK/TAB INC INC LET REAGENT AUTO MICROSCOP Y 81596 [facility] D[facility] NONSTRESS 0 [facility] TEST INC INC OBSERVATI 15940 [facility] ON/INPATI 0 PHYSICIAN [facility] PCC CARE 55 MINUTES MOLEC 90802 MOLECULAR MOLECULAR ISOL/XTRJ 0 HP PATHOLOGY PATHOLOGY NUCLEIC LAB LAB ACID EA NETWORK NETWORK TYPE INC INC MOLECULAR 99259 MOLECULAR MOLECULAR DX AMP 0 TARGET PATHOLOGY PATHOLOGY MULTIPLEX LAB LAB EA ADDL NETWORK NETWORK SEQ INC INC MOLEC 78951 MOLECULAR MOLECULAR SEP&ID HI 0 RESOLU PATHOLOGY PATHOLOGY TQ EACH LAB LAB NUCLEIC NETWORK NETWORK ACID PREP INC INC MOLECULAR 79427 MOLECULAR MOLECULAR DX AMP 0 TARGET PATHOLOGY PATHOLOGY MULTIPLEX LAB LAB 1ST 2 NETWORK NETWORK SEQ INC INC MOLECULAR 85678 MOLECULAR MOLECULAR 0 DIAGNOSTI PATHOLOGY PATHOLOGY CS LAB LAB INTERPRET NETWORK NETWORK ATION & INC INC REPORT MUTATION 33523 MOLECULAR MOLECULAR ID 0 ENZYMATIC PATHOLOGY PATHOLOGY LAB LAB LIG/PRIME NETWORK NETWORK R XTN 1 INC INC SGM EA IADNA 94811 PATHOLOGY PATHOLOGY NEISSERIA 0 & & CYTOLOGY CYTOLOGY GONORRHOE LAB LAB AE AMPLIFIED PROBE TQ CYTP C/V 49582 PATHOLOGY PATHOLOGY AUTO THIN 0 & & LYR CYTOLOGY CYTOLOGY PREPJ SCR LAB LAB MNL RESCR PHYS IADNA 92874 PATHOLOGY PATHOLOGY CHLAMYDIA 0 & & CYTOLOGY CYTOLOGY TRACHOMAT LAB LAB [place] P[place] 23424 [facility], UTERUS 9 [facility] J REAL TIME CLINIC OF W/IMAGE DCMTN [place] TRANSVAG PLLC GONADOTRO 05946 [facility] PIN 9 [facility] CHORIONIC INC INC QUANTITAT REYES GONADOTRO 41741 [facility] PIN 9 [facility] CHORIONIC INC INC [place] 51541 SUZIE YOEL, UTERUS 9 MEDICAL [place] REAL TIME IMAGING W/IMAGE ASSOCIATE DCMTN S TRANSVAG URNLS DIP 23313 [facility] 9 [facility] STICK/TAB INC INC LET REAGENT AUTO MICROSCOP Y URINE 49722 [facility]VA [facility] 9 [facility] TEST INC INC VISUAL COLOR CMPRSN METHS CULTURE 61901 MARVA [facility] BACTERIAL 9 [facility] INC INC QUANTTATI VE COLONY COUNT URINE PRESSURIZ 45701 [facility] ED/NONPRE 9 [facility] SSURIZED INC INC INHALATIO N TREATMENT RADIOLOGI 62319 [place] Brielle DIALLO EXAM 9 MEDICAL [place] CHEST 2 IMAGING VIEWS ASSOCIATE FRONTAL&L S ATERAL URINE 20396 [facility] 9 [facility] TEST INC INC VISUAL COLOR CMPRSN METHS Encounters Encounter Start End Date Code Location Performer Type Date OFFICE 98675 COREEN WOODARD OUTROMINAEN 7 7 MEDICINE T VISIT [place] 15 [facility] 7 7 [facility] OFF[facility] 55932 [facility] 7 7 Y OF JR [address] MARVA - 7 7 [facility] 7 7 [facility] - 7 7 [facility] - 7 7 [facility] OFFICE 23747 MARVA OUTPATIEN 7 7 [facility] T VISIT 5 [facility] MARVA - 7 7 [facility] OUTPATIEN [facility] MARVA - 7 7 [facility] MARVA - 7 7 [facility]PATI[facility] UNIVERSIT - 7 7 [facility] OFF[facility] 80722 [facility] OUTPATI[facility] 7 7 Y OF T NEW 30 [facility] MARVA - 7 7 [facility]PATIEN [facility] MARVA - 6 6 [facility]PAT[facility]ICE [facility] 6 PHYSICIAN T NEW 10 S GROUP MINUTES OFFICE 67447 SHIRIN CARPIO OUTPATIEN 6 6 NAHID NAHID T VISIT [address] [facility] OUTPATIEN 6 6 Y OF [place] CHR T VISIT [facility] 25 I [facility] - 6 [facility] 96376 [facility] 6 6 [facility] DEPARTMEN INC T VISIT LOW/MODER SEVERITY EMERGENCY 18305 KAM APONTE 6 6 PHYSICIAN U LUZ MARIA DEPARTMEN S, [facility] T VISIT MODERATE SEVERITY HOSPITAL [facility]VA - 6 6 [facility] 15645 [facility] CON[facility]ULTAT 6 6 Y OF [place] CHR ION [facility]/ESTAB I PHY PATIENT 60 MIN OFFICE 39990 [facility] 5 5 PHYSICIAN KENYETTA T VISIT S GROUP 15 MINUTES HOSPITAL [facility] - 5 5 [facility] OUTPATIEN [facility] H[facility]PITAL MARVA - 5 5 [facility] OUTPATIEN [facility] T PERIODIC 78093 ELIAN PLUMMER PREVENTIV 4 4 KATELYN KATELYN E MED EST PATIENT 18-39 YRS OFFICE 84908 [facility] 4 4 PHYSICIAN T VISIT S GROUP 15 MINUTES HOSPITAL MARVA - 3 3 [facility] OUTPATIEN INC T EMERGENCY 25915 [facility] 3 3 [facility] DEPARTMEN T VISIT MODERATE SEVERITY EMERGENCY 15822 [facility] 3 3 [facility] DEPARTMEN INC T VISIT LOW/MODER SEVERITY OFFICE 14505 SHIRIN VANEGAS 3 3 NAHID NAHID T VISIT 15 MINUTES HOSPITAL [facility] - 3 3 [facility] OUTPATIEN INC T OFFICE 72907 [facility] OUTPATIEN 3 3 PHYSICIAN T VISIT S GROUP 15 MINUTES OFFICE 60619 SHIRIN VANEGAS 3 3 NAHID NAHID T VISIT 15 MINUTES HOSPITAL [facility] - 3 3 [facility] OUTPATIEN INC T HOSPITAL [facility] - 2 2 [facility] OUTPATIEN INC T EMERGENCY 87577 LIZA DE JESUS 2 2 III LISA III [facility] DEPARTMEN T VISIT MODERATE SEVERITY EMERGENCY 14091 [facility] 2 2 [facility] DEPARTMEN INC T VISIT LOW/MODER SEVERITY OFFICE 27518 SHIRIN VANEGAS 2 2 NAHID NAHID T VISIT 15 MINUTES HOSPITAL [facility] - 2 2 [facility] OUTPATIEN INC T OFFICE 07499 SHIRIN VANEGAS 2 2 NAHID NAHID T VISIT 15 MINUTES OFFICE 34896 SHIRIN VANEGAS 1 1 NAHID NAHID T VISIT 15 MINUTES HOSPITAL AMRVA - 1 1 [facility] OUTPATIEN INC T OFFICE 41894 SIGRID MATTA OUTROMINAEN 1 1 CHR CHR T NEW 30 MINUTES OFFICE 34049 SHIRIN VANEGAS 1 1 NAHID NAHID T VISIT 15 MINUTES HOSPITAL [facility] - 1 1 [facility] OUTPATIEN INC T HOSPITAL [facility] - 1 1 [facility] OUTPATIEN [facility] OFFICE 57068 [facility] OUTPATIEN 1 1 HEALTH KATELYN T VISIT CLINIC OF 15 [place] MINUTES OFFICE 27226 SHIRIN CARPIO OUTPATIEN 1 1 NAHID NAHID T VISIT 15 MINUTES HOSPITAL [facility] - 0 0 [facility] OUTPATIEN [facility] OFFICE 86247 SHIRIN CARPIO OUTPATIEN 0 0 NAHID NAHID T VISIT 15 MINUTES OFFICE 91490 [facility] OUTPATIEN 0 0 HEALTH KATELYN T VISIT CLINIC OF 15 [place] MINUTES OFFICE 97569 SHIRIN CARPIO OUTPATIEN 0 0 NAHID NAHID T VISIT 15 MINUTES HOSPITAL [facility] - 0 0 [facility] OUTPATIEN [facility] OFFICE 21442 [facility] OUTPATIEN 0 0 HEALTH KATELYN T VISIT CLINIC OF 15 [place] MINUTES HOSPITAL [facility]VA - 0 0 [facility] INPATIENT [facility] OFFICE 90671 [facility], OUTPATIEN 0 0 [facility] J T VISIT CLINIC OF 15 MINUTES [facility] OFFICE 12714 [facility], OUTPATIEN 0 0 [facility] J T VISIT CLINIC OF 15 MINUTES [facility] OFFICE 24862 [facility], OUTPATIEN 0 0 [facility] J T VISIT CLINIC OF 15 MINUTES [facility] HOSPITAL MARVA - 0 0 [facility] OUTPATIEN [facility] H[facility] MARVA - 0 0 [facility] OUTPATIEN [facility] HOSPITAL MARVA - 0 0 [facility] OUTPATIEN [facility] OFFICE 93346 [facility], OUTPATIEN 0 0 [facility] J T VISIT CLINIC OF 15 MINUTES [facility] OFFICE 41050 [facility], OUTPATIEN 0 0 [facility] J T VISIT CLINIC OF 15 MINUTES [facility] OFFICE 84242 [facility], OUTPATIEN 0 0 [facility] J T VISIT CLINIC OF 15 MINUTES [facility] MARVA - 0 0 [facility] OUTPATIEN [facility] OFFICE 09476 [facility], OUTPATIEN 0 0 [facility] J T VISIT CLINIC OF 15 MINUTES [facility] OFFICE 53727 [facility], OUTPATIEN 0 0 [facility] J T VISIT CLINIC OF 15 MINUTES [facility] OFFICE 77387 [facility], OUTPATIEN 0 0 [facility] J T VISIT CLINIC OF 15 MINUTES [facility] MARVA - 0 0 [facility] OUTPATIEN [facility] OFFICE 90382 [facility], OUTPATIEN 0 0 [facility] J T VISIT CLINIC OF 15 MINUTES [facility] OFFICE 41752 [facility], OUTPATIEN 0 0 [facility] J T VISIT CLINIC OF 15 MINUTES [facility] MARVA - 0 0 [facility] OUTPATIEN [facility] OFFICE 76982 [facility], OUTPATIEN 0 0 [facility] J T VISIT CLINIC OF 15 MINUTES [facility] OFFICE 29960 [facility], OUTPATIEN 0 0 [facility] J T VISIT CLINIC OF 15 MINUTES [facility] MARVA - 0 0 [facility] OUTPATIEN [facility] OFFICE 59398 [facility], OUTPATIEN 0 0 [facility] J T VISIT CLINIC OF 15 MINUTES [facility] EMERGENCY 13728 [facility] 0 0 [facility] DEPARTMEN INC T VISIT LOW/MODER SEVERITY EMERGENCY 77500 FRANKY TOUSSAINT, 0 0 EMERGENCY [facility] T VISIT HIGH/URGE ASSOCIATE NT S SEVERITY [facility]OSPITAL [facility] - 0 0 [facility] OUTPATIEN INC T OFFICE 42293 [facility] PLUMMERMOEEN 0 0 [place] T VISIT CLINIC OF 15 MINUTES [facility] OFFICE 29462 SHIRIN CARPIO OUTPATIEN 0 0 GLORIA Sun T VISIT 15 MINUTES [facility] - 9 9 [facility] T EMERGENCY 49849 [facility] SP[facility]KS, DEPT 9 9 EMERGENCY [facility] VISIT SERVICES O HIGH SEVERITY& ASSOCIATE THREAT S [facility] - 9 9 [facility] T EMERGENCY [id number] [facility] 9 9 [facility] DEPARTMEN INC T VISIT LOW/MODER SEVERITY OFFICE 25945 SHIRIN CARPIO OUTPATIEN 9 9 [place] Sun T NEW 30 MINUTES EMERGENCY 43417 FRANKY TOUSSAINT, 9 9 EMER[facility]Y [facility] T VISIT MODERATE ASSOCIATE SEVERITY S [facility]OSP[facility] - 9 9 [facility] OUT[facility] T EMERGENCY 11026 [facility] 9 9 [facility] DEPARTMEN INC T VISIT LIMITED/M INOR PROB EMERGENCY [id number] FRANKY OTUSSAINT, 9 9 EMERGENCY [facility] T VISIT HIGH/URGE ASSOCIATE NT S SEVERITY [facility] - 9 9 [facility] T EMERGENCY [id number] [facility] 9 9 [facility] T VISIT MODERATE SEVERITY [facility] - 9 9 [facility] T
--- OUTSIDE RECORDS SUMMARY | 2017-08-28 20:37 | External Medical Summary Rpt | CCD ---
Author Author , SHAYY Rice SHAYY Address Unknown Phone [email or web address] Care Team Providers Care Qual Research Manager Name Role Phone SHIRIN NAHID, ARNOLD Unavailable Unavailable NAHID ARNOLD NAHID, ARNOLD Unavailable Unavailable NAHID SHIRIN, GLORIA W, Unavailable Unavailable ARNTRAVIS, GLORIA W MONIQUE BRO, MONIQUE Unavailable Unavailable BRO MONIQUE BRO, MONIQUE Unavailable Unavailable BRO BHABHRA, BHABHRA Unavailable Unavailable WHITTAKER ALL, WHITTAKER ALL Unavailable Unavailable [facility] Unavailable Unavailable INC, [facility] AMELIA MATTEO, AMELIA MATTEO Unavailable Unavailable [...] COMMUNITY ANESTH OF Unavailable Unavailable THE BLUE, [facility]UE JAMARCUS PAT, JAMARCUS PAT Unavailable Unavailable YOEL, YOEL Unavailable Unavailable YOEL BLAIR, Unavailable Unavailable YOEL BLAIR YOEL BLAIR, Unavailable Unavailable YOEL BLAIR YOEL, CAROLA, Unavailable Unavailable YOEL, CAROLA [facility] # [id number], Unavailable Unavailable [facility] # [id number] [facility], Unavailable Unavailable [facility] SHARON HERRERA Unavailable Unavailable YESICA OCTAVIO, Unavailable Unavailable YESICA OCTAVIO YESICA OCTAVIO, Unavailable Unavailable YESICA OCTAVIO WOODARD, WOODARD Unavailable Unavailable RICO KENYETTA, RICO Unavailable Unavailable VIKTORIA BUTT, Unavailable Unavailable VIKTORIA TOUSSAINT HARPEL OCTAVIO, HARPEL Unavailable Unavailable OCTAVIO [facility] Unavailable Unavailable INC, [facility] Unavailable Unavailable HOSPITAL P, [facility] MCPHERSON HARRIS, MCPHERSON HARRIS Unavailable Unavailable [facility] Unavailable Unavailable P[facility], [facility], Unavailable Unavailable [facility] ROXANNE OLIVEIRA Unavailable Unavailable [facility] Un[facility] Unavailable Unavailable [facility], [facility] ENRIQUE WINSOME Unavailable Unavailable HOLDINGS, LAB [...] [facility] FERNANDEZ LISA, JIM LSIA Unavailable Unavailable DANIELLA FERNANDEZ, Unavailable Unavailable DANIELLA FERNANDEZ [facility], [facility] Unavailable Unavailable LABS, [facility], Unavailable Unavailable PLL[facility], [facility] Unavailable Unavailable LAB, [facility]Y [facility] LAB PICKLESIMER JR LAUREANO, Unavailable Unavailable PICKLESIMER JR LAUREANO [facility] Unavailable Unavailable [id number] # [id number], [facility] 18[address] # [id number] KEKE LESTER, Unavailable Unavailable KEKE LESTER SOKAN, ITZEL O, Unavailable Unavailable SOKAN, ITZEL O SOKARANEATHOMAS LOERA, Unavailable Unavailable SOTINGEATHOMAS COLIN JR CRISTI Unavailable Unavailable ALONZO BURCH Unavailable Unavailable ALONZO MELENDEZ Unavailable Unavailable [facility], Unavailable Unavailable [facility] Unavailable Unavailable [facility] PHY, [facility] PH[facility] Unavailable [facility]available #, [facility] # [facility] Unavailable Unavailable #591, [facility] #591 [facility] # Unavailable Unavailable [id number], [facility] # [id number] WEHRMAN III LISA, Unavailable Unavailable WEHRMAN III LISA WEHRMAN III LISA, Unavailable Unavailable WEHRMAN III LISA SIGRID CHR, SIGRID Unavailable Unavailable 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[place] PARATHYROID PHY GLAND E210 PRIMARY 04-28-2017 [place] HYPERPARATH OF YROIDISM [place] PHY E8352 HYPERCALCEM 04-28-2017 [place] IA OF [place] PHY Z021 ENCOUNTER 04-18-2017 [facility] PRE-EMPLOYM INC ENT EXAMINATION E039 HYPOTHYROID 04-11-2017 [place] ISM OF UNSPECIFIED [place] PHY E213 HYPERPARATH 04-11-2017 [place] YROIDISM OF UNSPECIFIED [place] PHY E8350 UNSPECIFIED 04-11-2017 [place] DISORDER OF OF CALCIUM [facility] METABOLISM PHY A95682 ENCOUNTER 01-24-2017 [place] FOR MEDICAL SCREENING IMAGING ASS FOR OSTEOPOROSI S J069 ACUTE UPPER 01-17-2017 [facility] RESPIRATORY INC INFECTION UNSPECIFIED R0989 OTH SPEC SX 01-17-2017 [place] & SIGNS MEDICAL INVLV THE IMAGING ASS CIRC & RESP SYS Z720 TOBACCO USE 01-17-2017 [facility] H02357 ACQUIRED 12-01-2016 [place] ABSENCE OF OF BOTH CERVIX [place] AND UTERUS PHY U08321 ACQUIRED 12-01-2016 [place] ABSENCE OF OF OVARIES [place] UNILATERAL PHY Z9079 ACQUIRED 12-01-2016 [place] ABSENCE OF OF OTHER [facility] GENITAL PHY ORGANS D234 OTHER 11-11-2016 [facility] NEOPLASM OF SKIN OF SCALP AND NECK D492 NEOPLASM OF 11-10-2016 COMMUNITY UNS ANESTH OF BEHAVIOR THE BLUE BONE SOFT TISSUE & SKIN F97894 ENCOUNTER 11-05-[address] [facility] AL CARIOVASCUL AR EXAM R96235 ENCOUNTER 11-05-2016 [facility] P AL LABORATORY EXAM L723 SEBACEOUS 09-09-2016 ARNOLD NAHID CYST E349 ENDOCRINE 06-04-2016 [place] DISORDER OF UNSPECIFIED [facility] PHY M797 FIBROMYALGI 06-04-2016 [place] [facility] R0602 SHORTNESS 06-04-2016 [place] OF BREATH OF [place] PHY R5382 CHRONIC 06-04-2016 [place] FATIGUE OF UNSPECIFIED [place] PHY Z8489 FAMILY 06-04-2016 [place] HISTORY OF OF OTHER [place] SPECIFIED PHY CONDITIONS X35407 CUTANEOUS 05-31-2016 [facility] ABSCESS OF [facility] LEFT LOWER INC LIMB L0390 CELLULITIS 05-31-2016 [facility] UNSPECIFIED PHYSICIANS, [facility] M069 RHEUMATOID 03-31-2016 [place] [facility] UNSPECIFIED F44789 PRIMARY 03-31-2016 [place] OSTEOARTHRI OF TIS LEFT [place] HAND PHY C05642 PRIMARY 03-31-2016 [place] OSTEOARTHRI OF TIS LEFT [place] ANKLE AND PHY FOOT M2550 PAIN IN 03-31-2016 [place] UNSPECIFIED OF [facility] M7732 CALCANEAL 03-31-2016 [place] SPUR LEFT HOSPITAL FOOT M791 MYALGIA 03-31-2016 [facility] Y37012 PAIN IN 03-31-2016 [place] RIGHT HAND OF [place] PHY M56359 PAIN IN 03-31-2016 [place] RIGHT FOOT OF [place] PHY N6011 DIFFUSE 03-31-2016 [place] CYSTIC OF MASTOPATHY [place] OF RIGHT PHY BREAST N644 MASTODYNIA 03-31-2016 [facility] PHY O039 COMPLETE OR 03-31-2016 [place] UNS SPONT OF [place] W/O PHY COMPLICATIO N R768 OTH SPEC 03-31-2016 [place] ABNORMAL OF IMMUNOLOGIC [place] AL FIND IN PHY SERUM 7295 PAIN IN 07-15-2015 [place] SOFT MEDICAL TISSUES OF IMAGING ASS LIMB 7823 EDEMA 07-15-2015 [facility] V909 RETAINED 07-15-2015 [place] FOREIGN MEDICAL BODY IMAGING ASS UNSPECIFIED MATERIAL 6262 EXCESSIVE 05-22-2015 [facility] OR FREQUENT PHYSICIANS GROUP MENSTRUATIO N 2181 INTRAMURAL 01-13-2015 [facility] LEIOMYOMA PHYSICIANS OF UTERUS GROUP 2189 LEIOMYOMA 01-13-2015 [facility] OF UTERUS, MEM HOSP UNSPECIFIED INC 220 BENIGN 01-13-2015 [facility], NEOPLASM OF LLC OVARY 2331 CARCINOMA 01-13-2015 [facility], IN SITU OF LLC CERVIX UTERI 6212 HYPERTROPHY 01-13-2015 [facility] OF UTERUS PHYSICIANS GROUP 6259 UNSPEC 01-13-2015 [facility] SYMPTOM PHYSICIANS ASSOC GROUP W/FEMALE GENITAL ORGANS [...] 07-24-2014 [facility] KATELYN LUTEUM CYST OR HEMATOMA 50295 PAP SMER 05-08-2014 [facility] KATELYN CERV W/LW GRADE SQUAMOUS INTRAEPITH LES V7231 ROUTINE 04-09-2014 CHANG NAHID GYNECOLOGIC AL EXAMINATION 4650 ACUTE 03-05-2014 [facility] LARYNGOPHAR PHYSICIANS YNGITIS GROUP 4660 ACUTE 11-02-2013 [facility] BRONCHITIS [facility] INC 490 BRONCHITIS 11-02-2013 MONIQUE BRO NOT SPECIFIED ACUTE OR CHRONIC 7862 COUGH 11-02-2013 YOEL BLAIR 2724 OTHER AND 07-27-2013 COM[facility]ED UNSPECIFIED PHYSICIANS [place] HYPERLIPIDE JUAN MANUEL 4619 ACUTE 07-27-2013 ARNTRAVIS WHITFIELD SINUSITIS, UNSPECIFIED 58314 PAIN IN 07-27-2013 LAB ENRIQUE JOINT, SITE [facility] HOLDINGS UNSPECIFIED 7291 UNSPECIFIED 07-27-2013 SHIRIN WHITFIELD MYALGIA AND MYOSITIS 71640 OTHER 07-27-2013 LAB ENRIQUE MALAISE AND WINSOME FATIGUE HOLDINGS 04945 UNSPECIFIED 06-19-2013 [facility] ABNORMAL [facility] MAMMOGRAM INC V7612 OTHER 12-19-2012 [facility] SCREENING [facility] MAMMOGRAM INC V0481 NEED 09-14-2012 AMELIA FELIPE PROPHYLACTI C VACCINATION &INOCULATIO N FLU 83637 SWELLING OF 07-09-2012 WEHRMAN III LIMB LISA 9174 FOOT&TOE 07-09-2012 [facility] INSECT BITE [facility] INC NONVENOMOUS W/O MENTION INF 6869 UNSPEC 05-02-2012 SHIRIN WHITFIELD LOCAL INFECTION SKIN&SUBCUT ANEOUS TISSUE 82799 PAIN IN 03-03-2012 [place] JOINT, MEDICAL LOWER LEG IMAGING ASS 59503 PAIN IN 03-03-2012 [place] JOINT, MEDICAL ANKLE AND IMAGING ASS FOOT 8260 CLOSED 03-03-2012 [place] FRACTURE OF MEDICAL ONE OR IMAGING ASS MORE PHALANGES OF FOOT 25999 VARIANTS 02-29-2012 SHIRIN WHITFIELD MIGRAINE NEC INTRACT MIGRAINE W/O SM 7242 LUMBAGO 02-02-2012 YESICA OCTAVIO 06136 UNSPEC 11-03-2011 SHIRIN WHITFIELD STAPHYLOCOC CUS INFECTION CCE & UNS SITE 6829 CELLULITIS 10-16-2011 [facility] AND ABSCESS [facility] OF INC UNSPECIFIED SITE 2165 BENIGN 07-27-2011 [facility] NEOPLASM OF JAI & SKIN OF DUBILIER TRUNK EXCEPT SCROTUM 2166 ANTWON 07-27-2011 C JAYLENE NEOPLASM SCHUL[place]AD SKIN UPPER MD PSC LIMB INCLUDING SHOULDER 3670 HYPERMETROP 07-27-2011 [facility] 79230 OTHER 07-27-2011 [facility] SEBORRHEIC JAI & KERATOSIS DUBILIER 46779 OBESITY, 05-03-2011 SHIRIN WHITFIELD UNSPECIFIED 6218 OTHER 03-29-2011 [facility] SPECIFIED JAI & DISORDERS DUBILIER OF UTERUS NEC 6253 DYSMENORRHE 03-10-2011 [facility] [place] 97659 OSTEOARTHRO 08-29-2010 SHIRIN WHITFIELD S INVLV MX SITES BUT NOT SPEC GEN V242 ROUTINE 07-23-2010 [facility] [place] V252 STERILIZATI 07-06-2010 [facility] [place] V502 ROUTINE OR 05-28-2010 [facility] RITUAL PHYSICIAN CIRCUMCISIO GROUP [facility] N 32141 ERLY ONSET 05-27-2010 [facility] W[facility]WO CLINIC OF MENTION [place] HAIDER [facility] COND 650 NORMAL 05-27-2010 [facility] [place] [facility] V270 OUTCOME OF 05-27-2010 [facility] SINGLE CLINIC OF LIVEBORN [place] [facility] 93089 THREATENED 05-26-2010 [facility] PREMATURE PHYSICIAN LABOR GROUP [facility] ANTEPARTUM V221 SUPERVISION 05-26-2010 [facility] OF OTHER [facility] 55032 OTHER 05-10-2010 [facility] THREATENED PHYSICIAN LABOR, GROUP [facility] ANTEPARTUM 16633 EXCESS 05-06-2010 [facility] OF AFFECT MGMT [place] TOMAS [facility] 03542 DECR 05-01-2010 [facility] M[facility] OF [place] K[facility]NEY COND/COMP PLLC 5990 URINARY 04-28-2010 COMBINED TRACT PHYSICIANS INFECTION LAB SITE NOT SPECIFIED V283 ENCOUNTER 02-05-2010 [facility]EN'S ROUTINE HEALTH SCREEN CLINIC OF MALFORMATIO [place] N [facility] ULTRASONIC V220 SUPERVISION 01-20-2010 [facility] OF NORMAL [facility] FIRST INC 96001 OTHER 01-13-2010 [facility] SPECIFED [facility] COMPLICATIO INC N ANTEPARTUM 43134 OT CURRENT 01-13-2010 [facility] MAT CONDS EMERGENCY CLASSIFIABL SERVICES E ELSW ASSOCIATES [facility] 7245 UNSPECIFIED 01-13-2010 [facility] BACKACHE EMERGENCY SERVICES ASSOCIATES 7840 HEADACHE 01-13-2010 [facility] PHYSICIAN GROUP PCC V222 01-13-2010 [facility], [facility] INCIDENTAL INC V745 SCREENING 11-24-2009 MOLECULAR EXAMINATION PATHOLOGY FOR LAB NETWORK VENEREAL INC DISEASE 79871 THREATENED 10-28-2009 [facility] , HEALTH ANTEPARTUM [facility] OF [facility] 91294 10-28-2009 [facility] COMP RECUR HEALTH PREG LOSS [facility] COND/COMP [facility] 16930 ABDOMINAL 10-21-2009 [facility] PAIN, EMERGENCY UNSPECIFIED SERVICES SITE ASSOCIATES 15210 ABDOMINAL 10-21-2009 [facility] PAIN, [facility] GENERALIZED INC 94825 STOMATITIS 08-04-2009 [place] AND EMERGENCY MUCOSITIS SERVICES UNSPECIFIED ASSOCIATES 5060 BRONCHITIS& 07-23-2009 [place] PNEUMONITIS MEDICAL DUE TO IMAGING FUMES&VAPOR ASSOCIATES S 9879 TOXIC 07-23-2009 [facility] EFFECT OF EMERGENCY UNSPECIFIED SERVICES GAS FUME ASSOCIATES OR VAPOR E8490 PLACE OF 07-23-2009 [place] OCCURRENCE, MEDICAL HOME IMAGING ASSOCIATES E8912 OTH 07-23-2009 [place] SMOKE&FUMES MEDICAL CONFLAGRAT IMAGING OTH&UNS ASSOCIATES BLDG/STRCT Medications Na ND Rx Da Fi Fi Am Da Di Ph RX Ph St me C No te ll ll ou ys ag ar # ys at rm s nt no ma ic us Or Da si cy ia de te s n re d ID 00 09 10 10 5 00 KR [...] 34 1- 3- 00 00 UC ve ID 59 20 20 86 [place] ED 31 [...] 34 6- 3- 00 83 LD ve ID 59 20 20 AI ED 31 11 [...] 1 PH C CE AR TA MA NC CY NO # PH EN 10 05 [...] 0 60 30 CL 23 CL Ac ID 74 -0 -0 .0 IN 78 AR [...] 6- 6- 00 PH 58 LD ve ID 00 20 20 AR ED 10 11 [...] MC 43 G 7 TA BL ET ID 00 12 12 2 60 30 RI [...] 8- 8- 00 PH 72 LD ve ID 00 20 20 AR ED 10 10 [...] 4- 4- 00 PH 20 KE ve NC 20 20 20 AR DE 81 10 [...] RE MA K CY J LL C ID 65 12 06 11 30 30 WA [...] G TA 10 BL 05 ET 91 ID 65 12 05 11 30 30 WA [...] MC G #5 TA 91 BL ET ID 65 12 12 00 30 30 WA 70 CL Ac EN 16 -2 -3 .0 L- 51 AR ti AT 20 2- 1- 00 MA 24 KE ve AL 66 20 20 RT 4 [address] 0 PH RE US AR K MA J TA CY BL ET #5 91 ID 68 12 12 00 20 5 WA [...] 3- 3- 00 MA 55 LD ve ID 59 20 20 RT 0 ED 31 09 09 RI NI 5 PH CH SO AR AR LO MA D NE CY W 4 #5 MG 91 DO SE PK ME 00 11 11 00 21 6 WA 70 AR Ac TH 60 -1 -1 .0 L- 45 NO ti YL 34 3- 9- 00 MA 55 LD ve ID 59 20 20 RT 0 ED 31 [...] 0 RT 9 E 36 09 09 NC 2% 4 PH CH AR AE MA L SC CY S OU S #[address] 00 09 10 00 6. 5 WA 70 GA Ac 59 -2 -2 00 L- 39 IN ti 12 8- 2- 0 MA 80 EY ve 23 20 20 RT 9 50 09 09 NC 1 PH CH AR AE MA L CY S #5 91 DI 00 09 10 00 60 5 WA 70 GA Ac PH 53 -2 -2 .0 L- 39 IN ti EN 60 8- 2- 00 MA 80 EY ve HI 77 [address] 09 09 09 NC 7 PH CH 12 AR AE .5 MA L CY S MG /5 #[address] FL 00 09 10 00 3. 6 WA 70 GA Ac UC 17 -2 -0 00 L- 39 IN ti ON 25 8- 8- 0 MA 66 EY ve AZ 41 20 20 RT 0 OL 14 09 09 NC E 6 PH CH 10 AR AE 0 MA L MG CY S TA #5 BL 91 ET ME 00 09 09 00 21 6 WA 73 SA Ac TH 60 -1 -2 .0 L- 12 DE ti YL 34 6- 4- 00 MA 26 K ve ID 59 20 20 RT 5 MO ED [...] Procedure DOS Code Location Performer Comment PARATHYRO 04478 UNIVER[place]ONI COLIN IDECTOMY/ 7 Y OF JR EXPLORATI [place] ON I PHY PARATHYRO IDS ANES 46716 JEAN-CLAUDE HERRERA ESOPH 7 Y OF THYRD [place] LARYNX I PHY TRACH & [place] 1[place] [address] JEAN-CLAUDE OLIVEIRA SURG 7 Y OF PATHOLOGY [place] I PHY GROSS&EMMA ROSCOPIC EXAM PATH 04827 [facility] CONSLTJ 7 Y OF SURG 1ST [place] BLK I PHY FROZEN SCTJ 1 SPEC IMHISTOCH 32873 JEAN-CLAUDE OLIVEIRA EM/CYTCHM 7 Y OF 1ST [place] ANTIBODY I PHY STAIN PROCEDURE COLLECTIO 79373 [facility] N VENOUS 7 [facility] [place] [address] [facility] PARATHORM 7 [facility] ONE INC INC CALCIUM 76861 [facility] TOTAL 7 [facility] INC INC US SOFT 07027 JEAN-CLAUDE COLIN TISSUE 7 Y OF JR HEAD & [place] NECK REAL I PHY TIME IMGE DOCM COLLECTIO 25333 [facility] N VENOUS 7 [facility] [place] [address] [facility] FREE 7 [facility] [place] [address] [facility] THYROID 7 [facility] STIMULATI INC INC NG HORMONE TSH CREATININ 24028 [facility] E OTHER 7 [facility] SOURCE INC INC CALCIUM 94133 [facility] URINE 7 [facility] QUANTITAT INC INC REYES TIMED SPECIMEN 25 09194 [facility] HYDROXY 7 [facility] INCLUDES [place] [address] [facility] PARATHORM 7 [facility] ONE INC INC COLLECTIO 24469 [facility] D[facility] N VENOUS 7 [facility] BLOOD INC INC VENIPUNCT URE BASIC 90450 [facility] METABOLIC 7 [facility] PANEL INC INC CALCIUM TOTAL MYOCARDIA 21741 SUZIE Cloud SPECT 7 MEDICAL SINGLE IMAGING STUDY AT ASS REST OR STRESS DXA BONE 59292 [facility] DENSITY 7 [facility] STUDY 1/> INC INC SITES AXIAL SKEL TECHNETIU A9500 [facility] Virk TC-99M 7 [facility] SESTAMIBI INC INC DX PER STUDY DOSE RADIOLOGI 25684 [facility] C EXAM 7 [facility] CHEST 2 INC INC VIEWS FRONTAL&L ATERAL BASIC 15682 [facility] METABOLIC 7 [facility] PANEL INC INC CALCIUM TOTAL COLLECTIO 11650 [facility] Merlos VENOUS 7 [facility] BLOOD INC INC VENIPUNCT URE CREATININ 94932 [facility] D[facility] E OTHER 7 [facility] SOURCE INC INC VOLUME 52456 [facility] MEASUREME 7 [facility] NT TIMED INC INC COLLECTIO N EACH CALCIUM 54483 [facility] URINE 7 [facility] QUANTITAT INC INC REYES TIMED SPECIMEN HOSPITAL G0463 [facility] 7 Y Y T [facility] VISIT ASSESS & MGMT PT ADJT TIS 73217 [facility] CARDONA TRNS/REAR 7 PHYSICIAN GMT S GROUP F/C/C/M/N /A/G/H/F 10SQCM/< [place] [address] [facility], [facility] SURG [facility] PATHOLOGY GROSS&EMMA ROSCOPIC EXAM ANES 57335 [facility] INTEG 7 ANESTH [facility] & OF THE NRV HEAD BLUE NECK&POST ERIOR TRUNK BASIC 16391 [facility] METABOLIC 6 [facility] PANEL INC INC CALCIUM TOTAL COLLECTIO 55934 [facility] D[facility] N VENOUS 6 [facility] BLOOD INC INC VENIPUNCT URE BLOOD 86452 [facility] COUNT 6 [facility] COMPLETE INC INC AUTO&AUTO DIFRNTL WBC ECG 97735 [facility] VEE JR ROUTINE 6 [facility] ECG HOSPITAL W/LEAST P 12 LDS I&R ONLY ECG 39731 [facility] ROUTINE 6 [facility] MEM [facility]OS[facility] ECG INC INC W/LEAST 12 LDS TRCG ONLY W/O I&R HOSPITAL G0463 [facility] OUTPATIEN 6 Y Y T CLIN HOSPITAL HOSPITAL VISIT ASSESS & MGMT PT US SOFT 48067 [place] WHITTAKER ALL TISSUE 6 MEDICAL HEAD & IMAGING NECK REAL ASS TIME IMGE DOCM RADEX 18121 [facility] HAND 6 Y Y MINIMUM 3 HOSPITAL HOSPITAL VIEWS US BREAST 83175 [facility] UNI REAL 6 Y Y TIME HOSPITAL HOSPITAL WITH IMAGE LIMITED DIAGNOSTI G0204 [facility] C 6 Y Y MAMMOGRAP [facility] HOSPITAL HY INCL CAD WHEN PERF; BILAT RADEX 47423 [facility] FOOT 6 Y Y COMPLETE HOSPITAL HOSPITAL MINIMUM 3 VIEWS RADEX 95173 [place] YOEL FOOT 5 MEDICAL BLAIR COMPLETE IMAGING MINIMUM 3 ASS VIEWS RADEX 47105 [place] Y[place]EL HAND 5 MEDICAL BLAIR MINIMUM 3 IMAGING VIEWS [facility] G0378 [facility] OBSERVATI 5 [facility]OS[facility] ON INC INC SERVICE PER HOUR BASIC 98826 [facility] METABOLIC 5 [facility] MEM HOS[facility] PANEL INC INC CALCIUM TOTAL BLOOD 97049 [facility] COUNT 5 [facility]OS[facility] COMPLETE INC INC AUTO&AUTO DIFRNTL WBC COLLECTIO 47580 [facility] N VENOUS 5 [facility]OS[facility] BLOOD INC INC VENIPUNCT URE BLOOD 81283 [facility] COUNT 5 [facility]OS[facility] COMPLETE INC INC AUTO&AUTO DIFRNTL WBC COLLECTIO 10008 [facility] D[facility] N VENOUS 5 [facility] H[facility] BLOOD INC INC VENIPUNCT URE BASIC 78765 [facility] D[facility] METABOLIC 5 [facility] PANEL INC INC CALCIUM TOTAL URINE 03260 [facility] D[facility] 5 [facility] TEST INC INC VISUAL COLOR CMPRSN [facility] G0378 [facility] D[facility] OBSERVATI 5 MEM H[facility] MEM HOS[facility] ON INC INC SERVICE [place] V [address] [facility], CHANG SURG [facility] NAHID PATHOLOGY GROSS&EMMA ROSCOPIC EXAM URNLS DIP 48179 [facility] 5 [facility] STICK/TAB INC INC LET REAGENT AUTO MICROSCOP Y BLOOD 05094 [facility] COUNT 5 MEM HOSP MEM HOSP HEMOGLOBI INC INC N ANESTHESI 46350 COMMUNITY ALONZO A VAGINAL 5 ANESTH CARLA OF THE HYSTERECT BLUE YURI INCL BIOPSY BLOOD 12042 [facility] COUNT 5 [facility] MEM HOS[facility] HEMATOCRI INC INC T LAPS 98260 [facility] W/VAG 5 [facility] HYSTERECT INC INC 250 GM/&RMVL TUBE&/OVA MARLENY LEVEL 35289 [facility], CHANG SURG [facility] NAHID PATHOLOGY GROSS&EMMA ROSCOPIC EXAM INJECTION J2405 [facility] ONDANSETR INC INC ON HCL PER 1 MG CULTURE 63702 [facility] BACTERIAL 5 [facility] INC INC QUANTTATI VE COLONY COUNT URINE INJECTION J0131 [facility] ACETAMINO INC [place] 10 [place] [address] [facility] ELIAN TRANSVAGI 5 PHYS[place] [address] [facility] THYROID 5 [facility] STIMULATI INC INC NG HORMONE TSH COLLECTIO 81388 [facility] N VENOUS 5 [facility] [place]LO[place] [address] [facility], JAMARCUS PAT SURG 5 [facility] PATHOLOGY GROSS&EMMA ROSCOPIC EXAM COLPOSCOP 38810 [facility] ELIAN Y CERVIX 5 PHYSICIAN KATELYN ENDOCERVI S GROUP [place] CURETTAGE CYTP C/V 26546 [facility], PICKLESIM AUTO THIN 5 [facility] ER JR LAUREANO [place] [address] ELIAN PLUMMER TRANSVAGI 4 [place] [address] [facility], CHANG SURG [address] [facility] NAHID PATHOLOGY GROSS&EMMA ROSCOPIC EXAM URINE 82233 ELIAN PLUMMER 4 KATELYN KATELYN TEST VISUAL COLOR CMPRSN METHS COLPOSCOP 67144 ELIAN PLUMMER Y CERVIX 4 KATELYN KATELYN V[place] [address] [facility], [facility]Y [facility] PATHOLOGY GROSS&EMMA ROSCOPIC EXAM COLPOSCOP 49591 ELIAN MITCHELLE Y CERVIX 4 KATELYN KATELYN BX CERVIX & [place] [address] ELIAN PLUMMER TRANSVAGI 4 KATELYN KATELYN NAL CYTP 57107 CHANG CHANG CERVICAL/ 4 NAHID NAHID VAGINAL REQ INTERP PHYSICIAN CYTP C/V 65429 [facility] AUTO THIN 4 NAHID NAHID LYR PREPJ SCR MNL RESCR PHYS IAADIADOO 50126 [facility] 4 PHYSICIAN PHYSICIAN STREPTOCO S GROUP S GROUP CCUS GROUP A IAADI 09952 [facility] INFLUENZA 3 [facility] B VIRUS INC INC IAADI 22273 [facility] D[facility] INFFLUENZ 3 [facility] A A VIRUS INC INC RADIOLOGI 31838 [facility] C EXAM 3 [facility] CHEST 2 INC INC VIEWS FRONTAL&L ATERAL ANTINUCLE 89645 LAB ENRIQUE LAB ENRIQUE AR 3 WINSOME WINSOME ANTIBODIE HOLDINGS HOLDINGS S CROW RHEUMATOI 71520 COMBINED COMBINED D FACTOR 3 PHYSICIAN PHYSICIAN QUALITATI S LA S LA VE SEDIMENTA 50117 COMBINED COMBINED TION RATE 3 PHYSICIAN PHYSICIAN RBC S LA S LA NON-AUTOM ATED LIPID 30085 COMBINED COMBINED PANEL 3 [place] [address] COMBINED COMBINED BLOOD/URI 3 PHYSICIAN PHYSICIAN C ACID S LA S LA GENERAL 87578 COMBINED COMBINED HEALTH 3 PHYSICIAN PHYSICIAN PANEL S LA S LA THYROID 05838 COMBINED COMBINED HORM 3 PHYSICIAN PHYSICIAN UPTK/THYR S LA S LA OID HORMONE BINDING RATIO 25 95721 LAB ENRIQUE LAB ENRIQUE HYDROXY 3 WINSOME WINSOME INCLUDES HOLDINGS HOLDINGS FRACTIONS IF PERFORMED DIAGNOSTI G0206 [facility] C 3 [facility] MAMMOGRAP INC INC HY INCL CAD WHEN PERF; UNI SCREENING G0202 [facility] MAMMOGRAP INC INC HY MAXIM INCL CAD WHEN PERFORMD COMPUTER- 03334 [facility] AIDED 3 [facility] DETECTION INC INC SCREENING MAMMOGRAP HY IM ADM 78013 AMELIA CISNEROS MATTEO PRQ ID 2 SUBQ/IM NJXS 1 VACCINE IIV3 09000 AMELIA MATTEO AMELIA MATTEO VACCINE 2 SPLIT VIRUS 0.5 ML DOSAGE IM USE RADIOLOGI 75958 SUZIE TALLEYUTCHER C 2 MEDICAL BLAIR EXAMINATI IMAGING ON KNEE 3 ASS VIEWS RADEX 39977 SUZIE TALLEYUTCHER ANKLE 2 MEDICAL BLAIR COMPLETE IMAGING MINIMUM 3 ASS VIEWS RADEX 29283 SUZIE TALLEYUTCHER FOOT 2 MEDICAL BLAIR COMPLETE IMAGING MINIMUM 3 ASS VIEWS NRV CNDJ 10482 YESICA YESICA AMPLT&LAT 2 OCTAVIO OCTAVIO ENCY EA NRV MOTOR W/F-WAVE STD NRV CNDJ 18152 YESICA YESICA AMPLITUDE 2 OCTAVIO OCTAVIO & LATENCY EACH NERVE SENSORY H-REFLEX 06068 YESICA YESICA AMPLT&LAT 2 OCTAVIO OCTAVIO ENCY GASTRCN/S OLEUS MUSC NEEDLE 33015 YESICA YESICA EMG EA 2 OCTAVIO OCTAVIO EXTREMTY W/PARASPI NL AREA COMPLETE CUL BACT 05614 [facility] XCPT 1 [facility] URINE INC INC BLOOD/STO OL AEROBIC ISOL CUL BACT 94678 [facility] AEROBIC 1 [facility] ADDL INC INC METHS DEFINITIV E EA ISOL SUSCEPTIB 44023 [facility] LTY STDY 1 [facility] ANTIMICRB INC INC IAL MICRO/[place] [address] CHIPPS CHANG SURG 1 JAI & NAHID PATHOLOGY DUBILIER GROSS&EMMA ROSCOPIC EXAM EXC B9 73094 C JAYLENE SCHULSTAD LESION 1 SCHULSTAD TREVON MRGN XCP PSC SK TG T/A/L 0.5 CM/< OPHTH 73778 LASHAY MCPHERSON [facility] 1 VISION XM&EVAL COMPRE NEW PT 1/> VST EXC B9 63570 C JAYLENE PETERSAD LESION 1 KEKE LESTER MRLISANDRO JENNINGSP [facility] SK TG T/A/L 1.1-2.0 CM HYSTEROSC 6812 [facility] OPY 1 [place] [address] [facility] INFUSION 1 [facility] THERAPY INC INC PROPHYLAX IS/DX EA HOUR ENDOMETRI 6823 [facility] AL 1 [facility] ABLATION INC INC THERAPEUT 51187 [facility] D[facility] IC 1 [facility] INJECTION INC [place] [address] CHIPPS CHANG SURG 1 JAI & NAHID PATHOLOGY [facility] GROSS&EMMA ROSCOPIC EXAM ANES 53849 [facility] HYSTEROSC 1 ANESTH CARLA OPY&/HYST OF THE EROSALPIN BLUE GOGRAPHY W/BX HYSTEROSC 15229 [facility] OPY 1 [facility] ENDOMETRI INC INC AL ABLATION BLOOD 01259 [facility] COUNT 1 [facility] COMPLETE INC INC AUTO&AUTO DIFRNTL WBC GONADOTRO 89129 [facility] PIN 1 [facility] CHORIONIC INC INC QUALITATI VE BASIC 75496 [facility] D[facility] METABOLIC 1 [facility] [place] [address] [facility] TRANSVAGI 1 [facility] OF [place] CYTP 24476 UNA HEART SLCTV 1 LABORATOR LABORATOR CELL IES INC IES INC ENHANCEME NT INTERPJ XCPT C/[place] [address] [facility] THYROXINE 0 [facility] [place] [address] [facility] D[facility] THYROID 0 [facility] STIMULATI INC INC NG HORMONE TSH THYROID 09456 [facility] HORM 0 [facility] UPTK/THYR INC INC OID HORMONE BINDING RATIO CYTP 49749 PATHOLOGY PATHOLOGY CERVICAL/ 0 & & VAGINAL CYTOLOGY CYTOLOGY REQ LAB LAB INTERP PHYSICIAN CYTP C/V 73097 PATHOLOGY PATHOLOGY AUTO THIN 0 & & LYR CYTOLOGY CYTOLOGY PREPJ SCR LAB LAB MNL RESCR PHYS OTH BILAT 6629 [facility] ENDO 0 [facility] DESTRUC/[place] [address] [facility] INFUSION 0 [facility] THERAPY INC [place] [address] [facility] INFUSION 0 [facility] THERAPY/P INC INC ROPHYLAXI S /DX 1ST TO 1 HR THERAPEUT 55146 [facility] D[facility] IC 0 [facility] INJECTION INC INC IV PUSH EACH NEW DRUG LAPAROSCO 42157 [facility] PY W/PLMT 0 [facility] CLINIC OF OCCLUSION [place] DEVICE OVIDUCTS URINE 38852 MARVA MARVA 0 [facility] TEST INC INC VISUAL COLOR CMPRSN METHS ANES IPER 73420 [facility] LWR ABD 0 ANESTH W/LAPS OF THE TUBAL BLUE LIGATION/ TRANSECT BLOOD 58226 MARVA MARVA COUNT 0 [facility] COMPLETE INC INC AUTO&AUTO DIFRNTL WBC CIRCUMCIS 85181 [facility] ION 0 PHYSICIAN OCTAVIO W/CLAMP/O GROUP TH DEV PCC W/BLOCK VAGINAL 50300 [facility], DELIVERY 0 [facility] CLINIC OF W/POSTPAR CHAR CARE [place] PLLC INITIAL 89339 [facility] INPATIENT 0 PHYSICIAN OCTAVIO CONSULT GROUP NEW/ESTAB PCC PT 55 MIN OTHER 7359 [facility] MANUALLY 0 [facility] ASSISTED INC INC DELIVERY NEURAXIAL 45676 [facility] FERNANDEZ, LABOR 0 ANESTH DANIELLA F ANALG/ANE OF THE S PLND [place] VAGINAL DELIVERY OBSERVATI 41013 [facility] ON/INPATI 0 PHYSICIAN OCTAVIO ENT GROUP [facility] PCC CARE 55 MINUTES 16930 [facility], NONSTRESS 0 [facility] J TEST CLINIC OF [place] [facility] CUL BACT 62858 COMBINED COMBINED XCPT 0 PHYSICIAN PHYSICIAN URINE S LAB S LAB BLOOD/STO OL AEROBIC ISOL OBSERVATI 12917 [facility] ON/INPATI 0 PHYSIC[facility] PCC CARE 55 MINUTES 55753 [facility] NONSTRESS 0 [facility] TEST INC INC FTL 85948 [facility] FIBRONECT 0 [facility] IN INC INC CERVICOVA G SECRETION S SEMI-DESIREE URNLS DIP 62206 [facility] 0 [facility] STICK/TAB INC INC LET REAGENT AUTO MICROSCOP Y 77884 [facility], BIOPHYSIC 0 [facility] [place] CLINIC OF PROFILE W/O [place] NON-STRES [facility] S TESTING DOPPLER 23101 [facility], VELOCIMET 0 [facility] RY CLINIC OF UMBILICAL ARTERY [place] [facility] US PREG 72202 [facility], UTERUS 0 [facility] J REAL TIME CLINIC OF F/U TRNSABDL [place] PER FETUS [facility] 95481 [facility], NONSTRESS 0 [facility] J TEST CLINIC OF [place] [facility] URNLS DIP 84494 [facility] 0 [facility] STICK/TAB INC INC LET REAGENT AUTO MICROSCOP Y FTL 54117 [facility] D[facility] FIBRONECT 0 [facility] IN INC INC CERVICOVA G SECRETION S SEMI-DESIREE CULTURE 11433 [facility] BACTERIAL 0 [facility] INC INC QUANTTATI VE COLONY COUNT URINE OBSERVATI 12195 [facility], ON CARE 0 [facility] J DISCHARGE CLINIC OF MANAGEMEN [place] T [facility] G0378 AMRVA DURHAM OBSERVATI 0 [facility] ON INC INC SERVICE [facility] G0378 [facility] OBSERVATI 0 [facility] ON INC INC SERVICE PER HOUR INITIAL 71232 [facility], OBSERVATI 0 [facility] J ON CLINIC OF CARE/DAY 30 [place] MINUTES [facility] URNLS DIP 19207 [facility] 0 [facility] STICK/TAB INC INC LET REAGENT AUTO MICROSCOP Y CULTURE 10033 COMBINED COMBINED BACTERIAL 0 PHYSICIAN PHYSICIAN S LAB S LAB QUANTTATI VE COLONY COUNT URINE FTL 05357 [facility] FIBRONECT 0 [facility] IN INC INC CERVICOVA G SECRETION S SEMI-DESIREE GLUCOSE 77142 [facility], TOLERANCE 0 [facility] J TEST GTT CLINIC OF 3 SPECIMENS [facility] GLUCOSE 90452 [facility], POST 0 [facility] J GLUCOSE CLINIC OF DOSE [place] [facility] 98559 [facility]OMEN[facility] PLUM[facility], NONSTRESS 0 [facility] J TEST [facility] 73500 WOMEN[facility] PLUM[facility], NONSTRESS 0 [facility] J TEST [facility] 23189 [facility] NONSTRESS 0 [facility] TEST INC INC FTL 95365 [facility] FIBRONECT 0 [facility] IN INC INC CERVICOVA G SECRETION S SEMI-DESIREE URNLS DIP 41915 [facility] 0 [facility] STICK/TAB INC INC LET REAGENT AUTO MICROSCOP Y OBSERVATI 80671 [facility] ON/INPATI 0 PHYSICIAN [facility] PCC CARE 55 MINUTES CULTURE 02323 [facility] BACTERIAL 0 [facility] INC INC QUANTTATI VE COLONY COUNT URINE US PREG 92346 [facility], UTERUS 0 [facility] J AFTER 1ST CLINIC OF TRIMEST [place] [facility] [place] [address] [facility] THYROID 0 [facility] STIMULATI [place] [address] [facility] FREE 0 [facility] THYROXINE INC INC ALPHA-FET 01289 [facility] OPROTEIN 0 [facility] [place] [address] [facility] ESTRIOL 0 [facility] INC INC GONADOTRO 73085 [facility] PIN 0 [facility] CHORIONIC INC INC QUANTITAT REYES URNLS DIP 05702 [facility] 0 [facility] STICK/TAB INC INC LET REAGENT AUTO MICROSCOP Y 45016 [facility] NONSTRESS 0 [facility] TEST INC INC OBSERVATI 82559 [facility] ON/INPATI 0 PHYSICIAN [facility] PCC CARE 55 MINUTES MOLEC 09748 MOLECULAR MOLECULAR ISOL/XTRJ 0 HP PATHOLOGY PATHOLOGY NUCLEIC LAB LAB ACID EA NETWORK NETWORK TYPE INC INC MOLECULAR 98708 MOLECULAR MOLECULAR DX AMP 0 TARGET PATHOLOGY PATHOLOGY MULTIPLEX LAB LAB EA ADDL NETWORK NETWORK SEQ INC INC MOLEC 71551 MOLECULAR MOLECULAR SEP&ID HI 0 RESOLU PATHOLOGY PATHOLOGY TQ EACH LAB LAB NUCLEIC NETWORK NETWORK ACID PREP INC INC MOLECULAR 24806 MOLECULAR MOLECULAR DX AMP 0 TARGET PATHOLOGY PATHOLOGY MULTIPLEX LAB LAB 1ST 2 NETWORK NETWORK SEQ INC INC MOLECULAR 39307 MOLECULAR MOLECULAR 0 DIAGNOSTI PATHOLOGY PATHOLOGY CS LAB LAB INTERPRET NETWORK NETWORK ATION & INC INC REPORT MUTATION 22118 MOLECULAR MOLECULAR ID 0 ENZYMATIC PATHOLOGY PATHOLOGY LAB LAB LIG/PRIME NETWORK NETWORK R XTN 1 INC INC SGM EA IADNA 97628 PATHOLOGY PATHOLOGY NEISSERIA 0 & & CYTOLOGY CYTOLOGY GONORRHOE LAB LAB AE AMPLIFIED PROBE TQ CYTP C/V 48418 PATHOLOGY PATHOLOGY AUTO THIN 0 & & LYR CYTOLOGY CYTOLOGY PREPJ SCR LAB LAB MNL RESCR PHYS IADNA 15790 PATHOLOGY PATHOLOGY CHLAMYDIA 0 & & CYTOLOGY CYTOLOGY TRACHOMAT LAB LAB IS [place]IF[place] PREG 44193 [facility], UTERUS 9 [facility] J REAL TIME CLINIC OF W/IMAGE DCMTN [place] TRANSVAG PLLC GONADOTRO 59678 [facility] PIN 9 [facility] CHORIONIC INC INC QUANTITAT REYES GONADOTRO 31882 [facility] PIN 9 [facility] CHORIONIC INC INC [place] PREG 18105 SUZIE YOEL, UTERUS 9 [facility] [place] REAL TIME IMAGING W/IMAGE ASSOCIATE DCMTN S TRANSVAG URNLS DIP 87376 [facility] 9 [facility] STICK/TAB INC INC LET REAGENT AUTO MICROSCOP Y URINE 25897 MARVA MARVA 9 [facility] TEST INC INC VISUAL COLOR CMPRSN METHS CULTURE 18670 MARVA [facility]VA BACTERIAL 9 [facility] INC INC QUANTTATI VE COLONY COUNT URINE PRESSURIZ 04728 [facility] ED/NONPRE 9 [facility] SSURIZED INC INC INHALATIO N TREATMENT RADIOLOGI 84680 [place] Brielle DIALLO EXAM 9 [facility] [place] CHEST 2 IMAGING VIEWS ASSOCIATE FRONTAL&L S ATERAL URINE 23277 [facility] 9 [facility] TEST INC INC VISUAL COLOR CMPRSN METHS Encounters Encounter Start End Date Code Location Performer Type Date OFFICE 29753 COREEN [facility] OUTROMINAEN 7 7 MEDICINE T VISIT [place] 15 [facility] - 7 7 [facility] OFF[facility] 81154 [facility] 7 7 Y OF JR [address] MARVA - 7 7 [facility] - 7 7 [facility] - 7 7 [facility] - 7 7 [facility]PATIEN [facility] OFFICE 07316 MARVA OUTPATIEN 7 7 [facility] T VISIT 5 [facility] MARVA - 7 7 [facility]PATIEN [facility] MARVA - 7 7 [facility] MARVA - 7 7 [facility] - 7 7 [facility] 31596 [facility] 7 7 Y OF T NEW 30 [facility] - 7 7 [facility] MARVA - 6 6 [facility] OUTPATIEN [facility] T [facility] 21185 [facility] PHYSICIAN T NEW 10 S GROUP MINUTES OFFICE 22398 SHIRIN CARPIO OUTPATIEN 6 6 NAHID NAHID T VISIT [address] [facility] OUTPATIEN 6 6 Y OF [place] CHR T VISIT [facility] 25 I [facility] 07229 [facility] 6 6 [facility] DEPARTMEN INC T VISIT LOW/MODER SEVERITY EMERGENCY 56149 KAM APONTE 6 6 PHYSICIAN U LUZ MARIA DEPARTMEN S, [facility] T VISIT MODERATE SEVERITY HOSPITAL MARVA - 6 6 [facility] OFF[facility] 27797 [facility] CONSULTAT 6 6 Y OF [place] CHR ION [facility] I PHY PATIENT 60 MIN [facility] 14026 [facility] PH[facility]IAN [place] T VISIT S GROUP 15 MINUTES HOSPITAL [facility] - 5 5 [facility] MARVA - 5 5 [facility] OUTPATIEN [facility] T PERIODIC 66729 ELIAN PLUMMER PREVENTIV 4 4 KATELYN KATELYN E MED EST PATIENT 18-39 YRS OFFICE 09194 [facility] 4 4 PHYSICIAN T VISIT S GROUP 15 MINUTES HOSPITAL MARVA - 3 3 [facility] OUTPATIEN INC T EMERGENCY 51486 [facility] 3 3 [facility] DEPARTMEN T VISIT MODERATE SEVERITY EMERGENCY 82104 MAR[facility] 3 3 [facility] DEPARTMEN INC T VISIT LOW/MODER SEVERITY OFFICE 63651 SHIRIN VANEGAS 3 3 NAHID NAHID T VISIT 15 MINUTES HOSPITAL MARVA - 3 3 [facility] OUTPATIEN INC T OFFICE 16128 [facility] OUTPATI[facility] 3 3 PHYSICIAN T VISIT S GROUP 15 MINUTES OFFICE 73359 SHIRIN VANEGAS 3 3 NAHID NAHID T VISIT 15 MINUTES HOSPITAL [facility] - 3 3 [facility] OUTPATIEN INC T HOSPITAL MARVA - 2 2 [facility] OUTPATIEN INC T EMERGENCY 49023 LIZA DE JESUS 2 2 III LISA III [facility] DEPARTMEN T VISIT MODERATE SEVERITY EMERGENCY 76891 [facility] 2 2 [facility] DEPARTMEN INC T VISIT LOW/MODER SEVERITY OFFICE 02324 SHIRIN VANEGAS 2 2 NAHID NAHID T VISIT 15 MINUTES HOSPITAL [facility]VA - 2 2 [facility] OUTPATIEN INC T OFFICE 94651 SHIRIN VANEGAS 2 2 NAHID NAHID T VISIT 15 MINUTES OFFICE 96319 SHIRIN VANEGAS 1 1 NAHID NAHID T VISIT 15 MINUTES HOSPITAL [facility] - 1 1 [facility] OUTPATIEN INC T OFFICE 14395 SIGRID MATTA OUTROMINAEN 1 1 CHR CHR T NEW 30 MINUTES OFFICE 65515 SHIRIN VANEGAS 1 1 NAHID NAHID T VISIT 15 MINUTES HOSPITAL [facility] - 1 1 [facility] OUTPATIEN INC T HOSPITAL [facility] - 1 1 [facility] OUTPATIEN [facility] OFFICE 31448 [facility] OUTPATIEN 1 1 HEALTH [facility]N T VISIT CLINIC OF 15 [place] MINUTES OFFICE 42326 SHIRIN CARPIO OUTPATIEN 1 1 NAHID NAHID T VISIT 15 MINUTES HOSPITAL [facility]VA - 0 0 [facility] OUTPATIEN [facility] OFFICE 29136 SHIRIN CARPIO OUTPATIEN 0 0 NAHID NAHID T VISIT 15 MINUTES OFFICE 24696 [facility] OUTPATIEN 0 0 HEALTH K[facility]N T VISIT CLINIC OF 15 [place] MINUTES OFFICE 77256 SHIRIN CARPIO OUTPATIEN 0 0 NAHID NAHID T VISIT 15 MINUTES HOSPITAL [facility] - 0 0 [facility] OUTPATIEN [facility] OFFICE 70302 [facility] OUTPATIEN 0 0 HEALTH K[facility]ELYN T VISIT CLINIC OF 15 [place] MINUTES HOSPITAL [facility] - 0 0 [facility] INPATIENT [facility] OFFICE 16340 [facility], OUTPATIEN 0 0 [facility] J T VISIT CLINIC OF 15 MINUTES [facility] OFFICE 82996 [facility], OUTPATIEN 0 0 [facility] J T VISIT CLINIC OF 15 MINUTES [facility] OFFICE 28585 [facility], OUTPATIEN 0 0 [facility] J T VISIT CLINIC OF 15 MINUTES [facility] HOSPITAL MARVA - 0 0 [facility] OUTPATIEN [facility] MARVA - 0 0 [facility] OUTPATIEN [facility] MARVA - 0 0 [facility] OUTPATIEN [facility] OFFICE 81955 [facility], OUTPATIEN 0 0 [facility] J T VISIT CLINIC OF 15 MINUTES [facility] OFFICE 29784 [facility], OUTPATIEN 0 0 [facility] J T VISIT CLINIC OF 15 MINUTES [facility] OFFICE 38661 [facility], OUTPATIEN 0 0 [facility] J T VISIT CLINIC OF 15 MINUTES [facility] MARVA - 0 0 [facility] OUTPATIEN [facility] OFFICE 10170 [facility], OUTPATIEN 0 0 [facility] J T VISIT CLINIC OF 15 MINUTES [facility] OFFICE 03478 [facility], OUTPATIEN 0 0 [facility] J T VISIT CLINIC OF 15 MINUTES [facility] OFFICE 41426 [facility], OUTPATIEN 0 0 [facility] J T VISIT CLINIC OF 15 MINUTES [facility] MARVA - 0 0 [facility] OUTPATIEN [facility] OFFICE 06604 [facility], OUTPATIEN 0 0 [facility] J T VISIT CLINIC OF 15 MINUTES [facility] OFFICE 28347 [facility] PLUM[facility], OUTPATIEN 0 0 [facility] J T VISIT CLINIC OF 15 MINUTES [facility] MARVA - 0 0 [facility] OUTPATIEN [facility] OFFICE 93221 [facility], OUTPATIEN 0 0 [facility] J T VISIT CLINIC OF 15 MINUTES [facility] OFFICE 12731 WOMEN'[facility] PLUM[facility], OUTPATIEN 0 0 [facility] J T VISIT CLINIC OF 15 MINUTES [facility] MARVA - 0 0 [facility] OUTPATIEN [facility] OFFICE 55507 [facility], OUTPATIEN 0 0 [facility] J T VISIT CLINIC OF 15 MINUTES [facility] EMERGENCY 24739 MARVA 0 0 [facility] DEPARTMEN INC T VISIT LOW/MODER SEVERITY EMERGENCY 99616 FRANKY TOUSSAINT, 0 0 EMERGENCY [facility] SERVICES T VISIT HIGH/URGE ASSOCIATE NT S SEVERITY HOSPITAL [facility] - 0 0 [facility] OUTPATIEN INC T OFFICE 31664 WOMEN'S PLUMMERMOEEN 0 0 [place] T VISIT CLINIC OF 15 MINUTES [facility] OFFICE 26713 SHIRIN CARPIO OUTPATIEN 0 0 [place]ORIA Sun T VISIT 15 MINUTES HOSPITAL [facility] - 9 9 [facility] OUTPATIEN INC T EMERGENCY 72975 FRANKY SPARKS, DEPT 9 9 EMERGENCY ITZEL VISIT SERVICES O HIGH SEVERITY& ASSOCIATE THREAT S [facility] - 9 9 [facility] OUTPATIEN INC T EMERGENCY 85756 [facility] 9 9 [facility] DEPARTMEN INC T VISIT LOW/MODER SEVERITY OFFICE 62216 SHIRIN CARPIO OUTPATIEN 9 9 [place]ORIA Sun T NEW 30 MINUTES EMERGENCY 73603 FRANKY TOUSSAINT, 9 9 EMERGENCY [facility] SERVICES T VISIT MODERATE ASSOCIATE SEVERITY S HOSPITAL MARVA - 9 9 [facility] OUTPATIEN INC T EMERGENCY 10778 [facility] 9 9 [facility] DEPARTMEN INC T VISIT LIMITED/M INOR PROB EMERGENCY 27139 FRANKY TOUSSAINT, 9 9 EMERGENCY [facility] SERVICES T VISIT HIGH/URGE ASSOCIATE NT S SEVERITY HOSPITAL [facility] - 9 9 [facility] OUTPATIEN INC T EMERGENCY 70156 [facility] 9 9 [facility] DEPARTMEN INC T VISIT MODERATE SEVERITY HOSPITAL [facility] - 9 9 [facility] OUTPATIEN INC T
--- OUTSIDE RECORDS SUMMARY | 2017-08-28 20:39 | External Medical Summary Rpt ---
Author Author SHAYY Odette, SHAYY [employer] Organization [employer] Address Unknown Phone Unavailable Results 25-Hydroxyvitamin D [Mass/volume] in Serum or Plasma Observa Value Referen Units Interpr Notes Date tion ce etation Range 25-Hydrox 30.0 - ng/mL Low Vitamin D Apr 18 yvitamin 100.0 2017 3:35 D deficienc PM [Mass/vol y has ume] in been Serum or defined Plasma by the [facility] and an Endocrine Society practice guideline as alevel of serum 25-OH vitamin D less than 20 ng/mL (1,2).The Endocrine Society went on to further define vitamin Dinsuffic iency as a level between 21 and 29 ng/mL (2).1. IOM (Institut e of Medicine) . 2010. Dietary reference intakes for calcium and D. [place]: TheNation al Academies Press.2. Rick MF, Philomena NC, Renate Dalal DEE, et al.Evalua tion, treatment , and preventio n of vitamin Ddeficien cy: an Endocrine Society clinical practiceg uideline. JCEM. 2010; 96(7):191 1-30.Perf ormed at: CB - [facility] [place] [address] [place], [place] [id number] Primary Care Provider: Keenan Rose PhD, Phone: [phone] Calcium [Mass/volume] in Serum or Plasma Observa Value Referen Units Interpr Notes Date tion ce etation Range Calcium 8.5 - mg/dL High No Apr 12 [Mass/vol 10.1 informati 2017 3:35 ume] in on in PM Serum or source Plasma data Parathyrin.intact [Mass/volume] in Serum or Plasma Observa Value Referen Units Interpr Notes Date tion ce etation Range Parathyri 15 - 65 pg/mL High Performed Apr 12 n.intact at: CB 2017 3:35 [Mass/vol - [facility] PM ume] in Serum or [place] [address] Plasma 0 [place], [place] [id number] Primary Care Provider: Keenan Rose PhD, Phone: [phone] Thyroxine (T4) free [Mass/volume] in Serum or Plasma Observa Value Referen Units Interpr Notes Date tion ce etation Range Thyroxine 0.76 - ng/dL Normal No April 06 (T4) 1.46 informati 2016 free on in 11:52 AM [Mass/vol source ume] in data Serum or Plasma Thyrotropin [Units/volume] in Serum or Plasma Observa Value Referen Units Interpr Notes Date tion ce etation Range Thyrotrop 0.358 - uIU/ml Low No April 06 in 3.740 informati 2016 [Units/vo on in 11:52 AM lume] in source Serum or data Plasma
--- OUTSIDE RECORDS SUMMARY | 2017-08-28 20:39 | External Medical Summary Rpt ---
Author Author SHAYY Odette, SHAYY [employer] Organization [employer] Address Unknown Phone Unavailable Results 25-Hydroxyvitamin D [Mass/volume] in Serum or Plasma Observa Value Referen Units Interpr Notes Date tion ce etation Range 25-Hydrox 30.0 - ng/mL Low Vitamin D Apr 18 yvitamin 100.0 2017 3:35 D deficienc PM [Mass/vol y has ume] in been Serum or defined Plasma by the [place] [facility] and an Endocrine Society practice guideline [...] 96(7):191 1-30.Perf ormed at: CB - [facility] [address] [address] [address] [place], [place] [id number] Display Trimmer: Keenan Rose PhD, Phone: [phone] Calcium [Mass/volume] in Serum or Plasma [...] - [facility] PM ume] in Serum or [place] [address] Plasma [address] [place], [place] [id number] Display Trimmer: Keenan Rose PhD, Phone: [phone] Thyroxine (T4) free [Mass/volume] in Serum [...]
--- OUTSIDE RECORDS SUMMARY | 2017-08-28 20:39 | External Medical Summary Rpt | CCD ---
Demographics Preferred Language Telugu Marital Status Unknown Restorationism Affiliation Unknown Race Unknown Ethnic Group Unknown Author Author , SHAYY LUCAS Address Unknown Phone Immunization No patient found.
--- OUTSIDE RECORDS SUMMARY | 2017-08-28 20:39 | External Medical Summary Rpt | CCD ---
Demographics Preferred Language Amharic Marital Status Unknown Rastafari Affiliation Unknown Race Unknown Ethnic Group Unknown Author Author , SHAYY LUCAS Address Unknown Phone Immunization No patient found.
--- NOTE | 2017-08-28 20:43 | [facility]gent [facility] Report ---
History of Present Issue Date/Time Seen by Provider 08/28/172024 Visit Reason Pt arrived:Walked Presenting Problem:BEE STING TO THIGH YESTERDAY, PAIN SWELLING Location if Accident: Onset of symptoms date/time:/ or onset unknown for:MEDICAL HX UNKNOWN Have you (or family members/close friends) recently traveled outside the [place]? N If Yes, where/when: Have you had exposure to infectious disease within the past month? TB? Other? Specify: c/o worsening wasp sting to left anterior thigh. Was stung yesterday around 1600 by a wasp. Since then, increasing redness. Went to apply benadryl cream today and noticed warmth so came in. Hasn't taken or tried anything else for symptoms because benadryl makes her really sleepy. Source patient Exam Limitations no limitations ALLERGIES Coded Allergies: azithromycin (Mild, 01/17/17) cephalexin (Mild, 11/11/16) Home Medications Active Scripts Oxycodone 5MG/[id number] (Oxycodone-Acetaminophen 5-325) 1-2 TAB PO Q4HP PRN MODERATE TO SEVERE PAIN #30 TAB Prov: 01/14/15 D-METHORPHAN HB/P-EPD HCL/BPM (Bromfed Dm Cough Syrup) 10 ML PO Q4HP PRN cough #120 SYR Prov: 01/17/17 Doxycycline Hyclate (Vibramycin) 100 MG PO BID #10 CAP Prov: 01/17/17 Benzonatate (Tessalon Perle) 100 MG PO TID #15 SGL Prov: 08/02/17 ALBUTEROL (Proventil Hfa Inhaler) 2 PUFF IH Q6H PRN #1 CAN Prov: 08/02/17 Amoxicillin Trihydrate (Amoxicillin Oral Susp) 250 MG PO TID #220 ML Prov: 05/31/16 Reported Medications Levothyroxine Sodium (Synthroid 0.125MG) 0.125 MG PO DAILY Diazepam 2 MG PO TID History Medical History General CAD? No Angina: No [place]: No Hypertension? No Hyperlipidemia? No CHF? No DVT? No PE? No COPD? No Asthma? No Anemia? No GERD? No Gastric ulcers? No GI Bleed? No Hernia? No Thyroid Problems? No Hypothyroidism? No CVA? No Seizures? No Diabetes? No Renal Insuffiency? No UTI? No Stones? No BPH? No GB Disease: No Nephritic Syndrome? No Asplenia? No Hepatitis? No Sickle Cell Disease? No Arthritis? No Migraines? No Cataracts? No Glaucoma? No MRSA? No HIV? No TB? No Anxiety? No Depression? No Cancer? No More? No Immunization HX DT/Tetanus 5-10 YRS Flu Refused Pneumonia Refuses Surgical Hx Previous Surgery?Y Tubal Ligation UTERINE ABLATION Family History Family HX Diabetes Yes CAD No Hypertension Yes Hyperlipidemia Yes Cancer Yes TB Yes Social History Smoking Hx Smoker: Never Smoker Tobacco: No Alcohol Alcohol: No Review of Systems All Other Systems Reviewed and Negative (as appropriate for CC) Constitutional denies chills, denies fever, denies malaise Respiratory denies shortness of breath Cardiovascular denies palpitations Gastrointestinal denies nausea Musculoskeletal see HPI, denies joint pain, denies joint swelling Skin see HPI Psychiatric/Neurological denies numbness, denies tingling Physical Exam Vital Signs Vital Signs Date Time Temp Pulse Resp B/P Pulse O2 O2 Flow FiO2 Ox Delivery Rate 08/28 2025 98.6 70 16 140/71 99 General Appearance normal appearance, no apparent distress Respiratory Status No: respiratory distress. Cardiovascular no peripheral edema Back gait normal Neurologic alert, no motor/sensory deficits, oriented x 3 Skin 13cm x 10.5cm erythema to left anterior distal thigh consistent w/ a large local reaction following wasp stings, nontender Medical Decision Making LABS/Meds/Orders Pt receiving controlled substance in ED? No Results/Orders Current Medication Orders Sig/Jennifer Start time Last Medication Dose Route Stop Time Status Admin Dexamethasone Sodium 8 MG ONCE ONE 08/28 2045 AC Phosphate IM 08/28 2046 Diphenhydramine HCl 25 MG ONCE ONE 08/28 2045 AC IM 08/28 2046 Dexamethasone Sodium 0 .STK-MED ONE 08/28 2042 DC Phosphate .ROUTE Diphenhydramine HCl 0 .STK-MED ONE 08/28 2042 DC .ROUTE Dexamethasone Sodium 0 .STK-MED ONE 08/28 2041 DC Phosphate .ROUTE Diphenhydramine HCl 0 .STK-MED ONE 08/28 2041 DC .ROUTE Departure Departure Time of Disposition 2038 Disposition DC Home or Self Care(routine) Clinical Impression Primary Impression: Wasp sting Qualifiers: Encounter type: initial encounter Injury intent: accidental or unintentional Qualified Code: T63.461A - Toxic effect of venom of wasps, accidental (unintentional), initial encounter Condition STABLE Referrals NO REFERRAL Follow up with primary care tomorrow if no improvement with steroid shot, benadryl every 4-6 hours tonight, cool compresses and ibuprofen. If you can not get into Primary care, return to [facility]. Patient Instructions DI for Insect Bites and Stings, How to Care for an Insect Bite or Sting Additional Instructions cool compresses 20 minutes 4x/day ibuprofen 600-800mg every 6 hours for inflammation benadryl 25-50mg every 4-6 hours...WILL cause drowsiness. REMEMBER you had benadryl in clinic around 8:45pm. Do not repeat oral dose for at least 4 hours and your spouse MUST drive home! you had dexamethasone in clinic. This is a quick acting steroid and should help w/ redness, itching and swelling. * If no improvement tomorrow morning despite all of the above, follow up to rule out cellulitis at that time. Cellulitis is not that common but large local reactions to wasp stings like this are Discharge Counseling Counseled pt/family regarding diagnosis, medications/RX, home care, follow up needs at 2049
[2017-08-28 20:58] VITALS: BP 132/88
== END 2017-08-28 21:00 | disposition home or self-care (01) ==
LOC: UTC 20:17
DX: T63.461A Toxic effect of venom of wasps, accidental (unintentional), initial encounter (principal)